=== PATIENT | male | born 1990 | race Caucasian/White ===

== ENCOUNTER 2016-10-08 12:24 | Inpatient (IN) | payer MEDICARE, MEDICAID ==
[~2016-10-08] VITALS: Ht 162.6 cm; Wt 154.5 kg
[2016-10-08] MEDS ORDERED: IPRATROPIUM 0.5MG/ALBUTEROL 2.5MG INH SOL UD 3ML (DUONEB)(J7620) As Ordered ONE (13:45)
--- NOTE | 2016-10-08 14:43 | REP ---
Chest x-ray: Two views. History: Cough . Comparison study: No comparisons . Findings: The lungs are well inflated and free of infiltrate. The pleural angles are sharp. The heart size is normal. Pulmonary vasculature is not increased. No significant bony abnormality is seen. Impression: Negative chest x-ray. Signed by Lebron Wong MD 10/08/2016 02:34 P
[2016-10-08] MEDS ORDERED: ONDANSETRON 4MG/2ML VIAL (J2405) IV PRN (14:45)
[2016-10-08] MEDS ORDERED: BISACODYL 5 MG TAB PO PRN (14:45)
[2016-10-08] MEDS ORDERED: ACETAMINOPHEN 325 MG TAB As Ordered ONE (14:56)
[2016-10-08] MEDS ORDERED: IBUPROFEN 800 MG TAB As Ordered ONE (14:56)
[2016-10-08] MEDS: NS 1,000 ML IV SCH ×2 (15:00→22:31)
[2016-10-08 15:10] LABS: CONTROL LINE MONO INT CTR LINE PRESENT
[2016-10-08 15:13] LABS: ALBUMIN 3.6 GM/DL (3.2-5.2); ALBUMIN/GLOBULIN RATIO 0.86 (1.00-1.93); ALKALINE PHOSPHATASE 95 U/L (45-117); ALT/SGPT 54 U/L (12-78); AMYLASE 30 U/L (25-115); ANION GAP 12 MEQ/L (8-16); AST/SGOT 18 U/L (15-37); BILIRUBIN,TOTAL 0.7 MG/DL (0.2-1.0); BLOOD UREA NITROGEN 11 MG/DL (7-18); CALCIUM LEVEL 8.8 MG/DL (8.5-10.1); CARBON DIOXIDE LEVEL 21 MEQ/L (21-32); CHLORIDE LEVEL 104 MEQ/L (98-107); CREATININE FOR GFR 1.19 MG/DL (0.70-1.30); GLOMERULAR FILTRATION RATE > 60.0 (>60); GLUCOSE, FASTING 117 MG/DL (70-105); POTASSIUM SERUM 3.4 MEQ/L (3.5-5.1); SODIUM LEVEL 137 MEQ/L (136-145); TOTAL PROTEIN 7.8 GM/DL (6.4-8.2)
[2016-10-08 15:15] LABS: BASO % 0.3 % (0.0-1.0); EOS % 0.4 % (0.0-3.0); LARGE UNSTAINED CELL # 0.1 K/mm3 (0.0-0.4); LARGE UNSTAINED CELL % 1.6 % (0.0-4.0); LYMPH # 0.8 K/mm3 (1.5-6.5); LYMPH % 9.8 % (24.0-44.0); MEAN CORPUSCULAR HEMOGLOBIN 30.3 pg (27.0-33.0); MEAN CORPUSCULAR HGB CONC 34.2 g/dl (32.0-36.5); MEAN CORPUSCULAR VOLUME 88.6 fl (80.0-96.0); MONO # 0.5 K/mm3 (0.0-0.8); MONO % 6.3 % (0.0-5.0); NEUTROPHILS # 6.7 K/mm3 (1.8-7.7); NEUTROPHILS % 81.7 % (36.0-66.0); RED CELL DISTRIBUTION WIDTH 12.8 % (11.5-14.5); WHITE BLOOD COUNT 8.2 K/mm3 (4.0-10.0)
[2016-10-08] MEDS ORDERED: ISOVUE-370 76% 100ML VIAL (Q9967) As Ordered ONE (15:20)
--- NOTE | 2016-10-08 15:26 | HPEPDOC ---
Medical History and Physical Date of Admission Oct 08, 2016 at 14:35 History and Physical ATTENDING: Dr. Erica Odonnell PCP: Dr Meehan CC: Fever HPI: 26 yo M with a past medical history significant for seasonal allergy who is accompanied by his mother who reports history of fever for the past 2 days. He also provides a history of some epigastric discomfort for the past couple of days however states it is resolved today. He reports some mild nausea this morning however no vomiting and he states nausea is currently resolved. He had some cough however this was nonproductive. He also reports some mild erythema on his right lower extremity where he ran into something earlier today. Generally he was feeling unwell therefore he came to the emergency department for evaluation. Denies any fevers, chills, weakness, fatigue, NAVARRO, CP, SOB, cough, palpitations, abdominal pain, N/V/D or changes in bowel or bladder habits. Upon presentation to the hospital the patient was found to have fever, thus the hospitalist team was consulted. PMHx: Obesity BMI 56.64 Seasonal allergies PSHX: Tonsillectomy Melanoma posterior neck SOCHX: Resides in: [place] Marital Status: Single Kids: None Tobacco use: Past 5 years, cigarette daily ETOH: Occasionally on holidays Illicit Drugs: Denies Recent travel: Denies Advanced directives: Denies FAMHX: Mother: Alive, fibromyalgia, hypertension Father: , diabetes, CHF. Siblings: Alive, well Children: None Unexpected deaths due to medical reasons: None. ROS: As noted in HPI, otherwise 11pt ROS of systems reviewed and remarkable mother recently ill with URI/allergies. PE: GEN: 26yoM, appears stated age. Well-nourished, well developed. No acute distress. Alert and oriented x 3. Pleasant, interactive. HEENT: Normocephalic, atraumatic. Pupils are equal, round, and reactive to light. Extraocular movements are intact. No nystagmus appreciated. Sclera are nonicteric. Conjunctiva without injection. Nose midline. Nasal turbinates without bogginess. EACs both patent BL. TMs both visualized and alfredo with good cone of light, no bulging or erythema. No facial asymmetry. Moist mucous membranes. Dentition fair. Pharynx pink and moist, no cobblestoning. Neck supple , trachea midline. No lymphadenopathy or thyromegaly appreciated. CHEST: Regular rate and rhythm, +S1, +S2 LUNGS: Clear to auscultation bilaterally. No wheezes, rales, or rhonchi. Breathing appears symmetric and easy. Patient is speaking in full sentences. No accessory muscle use. ABD: Round, soft, non-tender, non-distended. +Bowel sounds throughout. No rebound or guarding. No costovertebral angle tenderness. EXT: Pulses 2+ bilaterally dorsalis pedis and radial. No lower extremity edema appreciated. SKIN: [place], dry, warm. Capillary refill <2sec. Area of mild erythema is noted on the right lower extremity and ankle.. NEURO: Alert and oriented x 3. Cranial nerves III-XII are intact. No focal deficits appreciated. CXR: Negative CT: Abdomen and pelvis. Pending EKG: Not completed BLOOD CULTURES: Pending Urinalysis pending Urine culture pending Labs including BMP/CBC with differential/lactic acid are pending. A&P: 26 yo M with a past medical history significant for seasonal allergy who is accompanied by his mother who reports history of fever for the past 2 days The patient will be admitted to M/S for observation to Dr. Meehan's service. Fever, possible viral illness. IVF at 150cc/hr. Zofran when necessary. Tylenol as needed. Blood culture pending. UA/urine culture pending. CT scan abdomen and pelvis pending. Laboratory studies including BMP, CBC with differential, lactic acid pending. Further interventions pending this initial workup. cipro flagyl due to complaints of abd pain. gi panel to evaluate diarrhea. Poor venous access. PICC line requested. History of seasonal allergy. Morbid obesity, BMI 56.64. Complicates care. DVT prophylaxis. Subcutaneous heparin. The patient is a full code Vital Signs 144/74 131 20 101.3 98% room air Laboratory Data Labs 24H Laboratory Tests 2 10/08/16 13:08: 10/08/16 14:22: Blood Urea Nitrogen 11, Creatinine 1.19, Sodium Level 137, Potassium Level 3.4L , Chloride Level 104, Carbon Dioxide Level 21, Calcium Level 8.8, Aspartate Amino Transf (AST/SGOT) 18, Alanine Aminotransferase (ALT/SGPT) 54, Alkaline Phosphatase 95, Total Bilirubin 0.7, Total Protein 7.8, Albumin 3.6, Albumin/ Globulin Ratio 0.86L, Amylase Level 30, Anion Gap 12, C-Reactive Protein, Quantitative 13.50H, Glomerular Filtration Rate > 60.0, Lipase 72L, Monoscreen NEGATIVE CBC/BMP Laboratory Tests 10/08/16 14:22 Calcium Level 8.8, Aspartate Amino Transf (AST/SGOT) 18, Alanine Aminotransferase (ALT/SGPT) 54, Alkaline Phosphatase 95, Total Bilirubin 0.7, Total Protein 7.8, Albumin 3.6 Microbiology Microbiology 10/08/16 Blood Culture, Received Pending 10/08/16 Blood Culture, Received Pending 10/08/16 Influenza Virus Type A Antigen - Final, Complete 10/08/16 Influenza Virus Type B Antigen - Final, Complete 10/08/16 Urine Culture, Received Pending Home Medications Scheduled Loratadine (Claritin) 10 Mg Tab 10 MG PO Q2D Scheduled PRN (Flonase Allergy Relief) 50 Mcg/Act Spr 1 SPRAY NA BID PRN PRN CONGESTION Acetaminophen (Acetaminophen) 500 Mg Tab 1,000 MG PO PRN PAIN Diphenhydramine HCl (Diphenhydramine HCl) 25 Mg Cap 25 MG PO PRN HIVES Naproxen Sodium (Aleve) 220 Mg Tab 220 MG PO BID PRN PRN PAIN Allergies Coded Allergies: Latex (Verified Allergy, Intermediate, RASH, 12/22/12) Bee Venom (Unverified Allergy, Unknown, 10/08/16) Cinnamon (Unverified Allergy, Unknown, 10/08/16) No Known Drug Allergy (Verified Allergy, Unknown, 12/22/12) Lakia Greco Oct 08, 2016 15:26 DEBBIE TALBERT MD Oct 08, 2016 16:00
[2016-10-08 15:48] LABS: ERYTHROCYTE SEDIMENTATION RATE 46 mm/hr (0-15)
[2016-10-08] MEDS ORDERED: CLAR1TAB2 PO (15:49)
[2016-10-08] MEDS ORDERED: DIPH25CA PO (15:49)
[2016-10-08] MEDS ORDERED: ACET50TAOT PO (15:49)
[2016-10-08] MEDS ORDERED: ALEV220T26 PO (15:49)
[2016-10-08] MEDS ORDERED: FLON1SPR (15:49)
[2016-10-08] MEDS ORDERED: GI COCKTAIL 50ML BTL(HYOSCYAMINE/MAALOX/LIDOCAINE VISCOUS)(1:3:1) PO PRN (16:00)
[2016-10-08 16:12] LABS: PLATELET COUNT, AUTOMATED 76 k/mm3 (150-450)
[2016-10-08] MEDS ORDERED: CIPROFLOXACIN/D5W 400 MG/200 ML BAG (J0744) As Ordered ONE (16:13)
--- NOTE | 2016-10-08 16:31 | REP ---
CT abdomen and pelvis with IV, but without oral contrast: History: Abdominal pain and fever. CT contrast dose: 100 ml of Isovue 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 The lung bases are clear. There is mild diffuse fatty infiltration of the liver. Gallbladder and pancreas are unremarkable. No adrenal lesion is seen. The kidneys enhance symmetrically and are morphologically intact. No splenic abnormality is observed. No retroperitoneal mass or adenopathy is seen. Normal caliber aorta is noted. A normal appendix is seen in the right lower quadrant. There is no obstructive lesion seen. Solitary loop of small bowel is seen in the left mid abdomen with air and some fluid. No evidence of free air or abscess. Impression: Evidence of fatty infiltration of the liver. No acute abdominal abnormality or pelvic abnormality. Normal appendix seen. Signed by Lebron Wong MD 10/08/2016 05:42 P
--- NOTE | 2016-10-08 16:32 | EDDOCDS ---
Physician Documentation [facility] Name: Josiah Orellana Age: 26 yrs Sex: Male : 1990 Arrival Date: 10/08/2016 Time: 12:24 Bed 2 Private MD: Siva Meehan MD Disposition: 10/08/16 15:04 Hospitalization ordered by Shantell Karimi for Inpatient Admission. Preliminary diagnosis is Fever, unspecified. - Bed requested for 4 [place]. - Status is Inpatient Admission. srm - Condition is Stable. - Problem is new. - Symptoms are unchanged. Historical: - Allergies: Latex; - Home Meds: 1. Benadryl 25 mg Oral cap 1 cap 2. Claritin 10 mg Oral tab 1 tab once daily 3. Flonase 50 mcg/actuation Nasal spsn 1 spray 2 times per day 4. Tylenol 1000 mg Oral (Last dose: 10/08/2016 11:00) - PMHx: Seasonal Allergies; - PSHx: Tonsillectomy; Neck Surgery; - Social history: Smoking status: Patient uses tobacco products, current some day smoker. No barriers to communication noted, The patient speaks fluent German, Speaks appropriately for age. - Family history: Not pertinent. - : The pt / caregiver states he / she is not on anticoagulants. Home medication list is obtained from the patient. - Exposure Risk Screening:: None identified. Vital Signs: 10/08 12:26 BP 144 / 74; Pulse 131; Resp 20 S; Temp 101.3(O); Pulse Ox 98% on R/A; Weight 149.69 kg gr2 / 330.01 lbs (R); Height 5 ft. 4 in. (162.56 cm) (R); Pain 3/10; 14:48 BP 138 / 72; Pulse 162; Resp 24; Temp 100.4(O); Pulse Ox 100% on R/A; Pain 7/10; sew 16:05 BP 150 / 67; Pulse 128; Resp 22; Temp 100.6(O); Pulse Ox 95% on R/A; Pain 0/10; srm 12:26 Body Mass Index 56.64 (149.69 kg, 162.56 cm) gr2 MDM: 12:57 -Blood Culture (Adults Only), peripheral from different site, or from device/port/PICC ef1 etc. if present ordered. 12:57 Strep Screen, Nursing ordered. ef1 12:57 Obtain sample by nasopharyngeal swab ordered. ef1 12:57 IV Saline Lock ordered. ef1 12:58 CBC with Diff Ordered. EDMS 12:58 Complete Comphrensive Metabolic Ordered. EDMS 12:58 Lactic Acid (Carbajal tube on ice) Ordered. EDMS 12:58 Monoscreen Ordered. EDMS 12:58 -Blood Culture Ordered. EDMS 12:58 -Influenza A&B Rapid Antigen - Nose Ordered. EDMS 12:58 Chest, 2 View (pa\E\lat) Ordered. EDMS 13:02 -Blood Culture (Adults Only), peripheral from different site, or from device/port/PICC sew etc. if present complete. 13:03 BLOOD CULTURES Ordered. EDMS 13:22 Albuterol-Ipratropium 1 neb Nebulizer every 20 minutes x3 ordered. ef1 13:22 Call Respiratory ordered. ef1 13:34 Call Respiratory complete. sew 13:39 [facility] [place] [place] Payment Agreement was scanned into [employer] and attached to record. jp5 13:39 Financial registration complete. jp5 13:40 AMYLASE Ordered. EDMS 13:40 LIPASE Ordered. EDMS 14:20 -Influenza A&B Rapid Antigen - Nose Reviewed. ef1 14:36 PICC LINE INSERTION W/SITERITE Ordered. EDMS 14:38 URINE CULTURE Ordered. EDMS 14:40 Admission / Observation Status ordered. EDMS 14:40 CT ABD & PELVIS WITH CONTRAST Ordered. EDMS 14:40 REGULAR DIET ordered. EDMS 14:41 URINALYSIS Ordered. EDMS 14:45 Acetaminophen Tablet 975 mg PO once ordered. ef1 14:45 Ibuprofen 800 mg PO once ordered. ef1 14:47 ERYTHROCYTE SEDIMENTATION RATE Ordered. EDMS 14:47 C REACTIVE PROTEIN QUANTITATIV Ordered. EDMS 14:49 Oxygen at 2L/min via NC ordered. ef1 14:56 BED REQUEST+ADM ordered. EDMS 15:59 GASTROINTESTINAL (GI) PANEL Ordered. EDMS 15:59 MRSA SCREEN Ordered. EDMS 16:11 Ciprofloxacin 400 mg IVPB at 200 mL/hr once over 60 mins ordered. srm 16:23 ERYTHROPOIETIN SERUM Ordered. EDMS 16:23 JAK2 MUTATIONS FOR PATH Ordered. EDMS Administered Medications: 14:01 Drug: Albuterol-Ipratropium 1 neb [ipratropium-albuterol 0.5 mg-3 mg(2.5 mg base)/3 mL cs15 nebulization soln (1 neb)] Route: Nebulizer; 14:20 Drug: Albuterol-Ipratropium 1 neb [ipratropium-albuterol 0.5 mg-3 mg(2.5 mg base)/3 mL cs15 nebulization soln (1 neb)] Route: Nebulizer; 14:34 Drug: Albuterol-Ipratropium 1 neb [ipratropium-albuterol 0.5 mg-3 mg(2.5 mg base)/3 mL cs15 nebulization soln (1 neb)] Route: Nebulizer; 14:45 CANCELLED (Other Intervention Used): Ondansetron 4 mg IVP once ef1 14:46 CANCELLED (Other Intervention Used): ketorolac 30 mg IVP once ef1 15:01 Drug: Acetaminophen 975 mg [acetaminophen 325 mg tablet (3 tabs)] Route: PO; dls 15:01 Drug: Ibuprofen 800 mg [ibuprofen 800 mg tablet (1 tabs)] Route: PO; dls 16:10 CANCELLED (Other Intervention Used): NS 0.9% 1000 ml IV at bolus once srm 16:11 CANCELLED (Other Intervention Used): cefTRIAXone 1 grams IVPB once over 30 mins; dilute srm in 50mL of NS or D5W 16:17 Drug: Ciprofloxacin 400 mg [ciprofloxacin 400 mg/200 mL in 5 % dextrose intravenous srm piggyback] Route: IVPB; Rate: 200 mL/hr; Infused Over: 60 mins; Site: right antecubital; 16:19 CANCELLED (Other Intervention Used): NS 0.9% 1000 ml IV at bolus once srm Signatures: Dispatcher [employer] EDMS Ernestina Acosta RN RN srm Feola, Ya, PA-C PA-C ef1 Chrissie Lynch EmilyRN Dori Singer jp5 Alhaji Londono RN RN sa Scott, Debra RN dls Demian Hawley RT [id number] The chart was reviewed and I authenticate all verbal orders and agree with the evaluation and treatment provided.Corrections: (The following items were deleted from the chart) 13:39 13:33 AMYLASE+LAB ordered. EDMS EDMS 13:39 13:33 LIPASE+LAB ordered. EDMS EDMS 14:45 13:30 Ondansetron 4 mg IVP once ordered. ef1 ef1 14:46 12:57 ketorolac 30 mg IVP once ordered. ef1 ef1 14:46 14:41 ERYTHROCYTE SEDIMENTATION RATE ordered. EDMS EDMS 14:46 14:41 C REACTIVE PROTEIN QUANTITATIV ordered. EDMS EDMS 14:47 14:41 LIPASE ordered. EDMS EDMS 14:47 14:41 AMYLASE ordered. EDMS EDMS 15:28 14:38 BLOOD CULTURES ordered. EDMS EDMS 15:59 15:59 GASTROINTESTINAL (GI) PANEL ordered. EDMS EDMS 15:59 15:59 GASTROINTESTINAL (GI) PANEL ordered. EDMS EDMS 16:10 13:30 NS 0.9% 1000 ml IV at bolus once ordered. ef1 srm 16:11 13:30 cefTRIAXone 1 grams IVPB once over 30 mins; dilute in 50mL of NS or D5W ordered. srm ef1 16:19 12:57 NS 0.9% 1000 ml IV at bolus once ordered. ef1 srm Attachments: 13:39 [facility] [place] [place] Payment Agreement jp5 [employer]
--- NOTE | 2016-10-08 16:32 | EDDOCDS ---
Nurse's Notes [facility] Name: Josiah Orellana Age: 26 yrs Sex: Male : 1990 Arrival Date: 10/08/2016 Time: 12:24 Bed 2 Private MD: Siva Meehan MD Diagnosis: Fever, unspecified Presentation: 10/08 12:33 Presenting complaint: Patient states: cough and fever at home for 2 days. also c/o ead right leg pain, pt states "I pulled a muscle.". Adult Sepsis Screening: The patient does not have new or worsening altered mentation. Patient's respiratory rate is less than 22. Systolic blood pressure is greater than 100. Patient has a qSOFA score of 0- Negative Sepsis Screen. Suicide/Homicide risk assessment- the patient denies having any suicidal and/or homicidal ideations and does not present with any other emotional, behavioral or mental health complaints. Status: Patient is not a home service consultant or dependent. Transition of care: patient was not received from another setting of care. 12:33 Acuity: DRE Level 3 ead 12:33 Method Of Arrival: Walkin/Carried/Asstd ead 13:19 Acuity level changed due to meets SIRS criteria or has positive Sepsis Screening. [facility] 13:19 Acuity: DRE Level 2 [facility] Triage Assessment: 12:36 General: Appears in no apparent distress, Behavior is appropriate for age, cooperative. ead Pain: Location: right leg Pain currently is 6 out of 10 on a pain scale. HIV screening NA for this visit Offered previously. EENT: Reports pain in right ear. Respiratory: Airway is patent Respiratory effort is even, unlabored, Reports cough that is. Historical: - Allergies: Latex; - Home Meds: 1. Benadryl 25 mg Oral cap 1 cap 2. Claritin 10 mg Oral tab 1 tab once daily 3. Flonase 50 mcg/actuation Nasal spsn 1 spray 2 times per day 4. Tylenol 1000 mg Oral (Last dose: 10/08/2016 11:00) - PMHx: Seasonal Allergies; - PSHx: Tonsillectomy; Neck Surgery; - Social history: Smoking status: Patient uses tobacco products, current some day smoker. No barriers to communication noted, The patient speaks fluent Palestinian, Speaks appropriately for age. - Family history: Not pertinent. - : The pt / caregiver states he / she is not on anticoagulants. Home medication list is obtained from the patient. - Exposure Risk Screening:: None identified. Screenin:10 Screening information is obtained from the parent. Fall risk: No risks identified. dls Assistance ADL's: requires no assistance with activities of daily living. Abuse/DV Screen: The patient / caregiver reports he/she is: not in a situation that causes fear, pain or injury. Nutritional screening: No deficits noted. Advance Directives: Currently, there is no health care proxy. There is no active DNR order. There is no living will. There is no Power of Child Care Worker. Advance directive information has not previously been placed in an [facility] medical record. home support is adequate. Assessment: 14:38 General: Appears morbidly obese male. no resp distress when at rest. speech jmk uninterrupted by resp effort. occasional cough noted that is non productive. Moist pink oral mucosa. Poor personal hygiene. breath sound diminished and obscured by body habitus., despite multiple IV attempts unable to establish IV access. provider aware. Cardiovascular: Capillary refill < 3 seconds Heart tones S1 S2 present Edema is absent. Respiratory: Airway is patent Respiratory effort is even, unlabored, Breath sounds are clear bilaterally. GI: Abdomen is non- distended obese. 16:12 General: Critical value H&H called to Dr. Karimi.. kcs 16:21 General: Appears. srm 16:27 General: Appears in no apparent distress, comfortable, Behavior is cooperative. Pain: srm Denies pain. Derm: Skin is pink, warm & dry. Vital Signs: 12:26 BP 144 / 74; Pulse 131; Resp 20 S; Temp 101.3(O); Pulse Ox 98% on R/A; Weight 149.69 kg gr2 (R); Height 5 ft. 4 in. (162.56 cm) (R); Pain 3/10; 14:48 BP 138 / 72; Pulse 162; Resp 24; Temp 100.4(O); Pulse Ox 100% on R/A; Pain 7/10; sew 16:05 BP 150 / 67; Pulse 128; Resp 22; Temp 100.6(O); Pulse Ox 95% on R/A; Pain 0/10; srm 12:26 Body Mass Index 56.64 (149.69 kg, 162.56 cm) gr2 Vitals: 12:26 Log In Time: October 08, 2016 at 12:26. gr2 14:38 Strep Screen is obtained and tested: Negative, a GATSNEG culture is ordered in [facility] and sent. ED Course: 12:25 Patient visited by Shavon Duckworth. gr2 12:25 Siva Meehan is Private Physician. gr2 12:25 Patient moved to Waiting gr2 12:27 Patient visited by Shavon Duckworth. gr2 12:27 Patient moved to Pre RCE gr2 12:35 Triage Initiated ead 12:55 Ya Murrell PA-C is PHCP. ef1 12:55 Gayatri Todd MD is Attending Physician. ef1 12:56 Patient moved to I5 / M5 dls 12:57 Patient visited by Ya Murrell PA-C. ef1 13:22 Patient visited by Ya Murrell PA-C. ef1 13:39 [place] was scanned into [email or web address] and attached to record. jp5 13:56 -Influenza A&B Rapid Antigen - Nose Sent. jmk 14:04 Patient visited by Ya Murrell PA-C. ef1 14:20 Patient visited by Ya Murrell PA-C. ef1 14:43 Patient visited by Ya Murrell PA-C. ef1 14:51 Patient visited by Chrissie Lynch. sew 15:04 Shantell Karimi is Hospitalizing Provider. ef1 15:07 URINALYSIS Sent. dls 15:07 URINE CULTURE Sent. dls 15:09 C REACTIVE PROTEIN QUANTITATIV Sent. dls 15:09 ERYTHROCYTE SEDIMENTATION RATE Sent. dls 15:10 The patient / caregiver is instructed regarding the plan of care and ED course. dls Accompanied by Family Member, Patient has correct armband on for positive identification. Placed in gown. 15:12 Patient moved to 2 jmk 15:13 Chest, 2 View (pa\\E\\lat) Returned. EDMS 15:21 Patient visited by Chrissie Lynch. sew 15:21 Repositioned patient. telemetry monitor on. Pulse ox on. NIBP on. sew 16:00 Patient visited by Ernestina Acosta, KALEIGH. srm 16:08 Patient visited by Ernestina Acosta, KALEIGH. srm 16:21 Patient visited by Ernestina Acosta RN. srm 16:27 No apparent distress. Resting quietly. Awaiting bed assignment. srm 16:27 Inserted saline lock: 22 gauge in right forearm. No procedures done that require srm assistance. 16:29 Patient visited by Ernestina Acosta RN. srm Administered Medications: 14:01 Drug: Albuterol-Ipratropium 1 neb [ipratropium-albuterol 0.5 mg-3 mg(2.5 mg base)/3 mL cs15 nebulization soln (1 neb)] Route: Nebulizer; 14:20 Drug: Albuterol-Ipratropium 1 neb [ipratropium-albuterol 0.5 mg-3 mg(2.5 mg base)/3 mL cs15 nebulization soln (1 neb)] Route: Nebulizer; 14:34 Drug: Albuterol-Ipratropium 1 neb [ipratropium-albuterol 0.5 mg-3 mg(2.5 mg base)/3 mL cs15 nebulization soln (1 neb)] Route: Nebulizer; 14:45 CANCELLED (Other Intervention Used): Ondansetron 4 mg IVP once ef1 14:46 CANCELLED (Other Intervention Used): ketorolac 30 mg IVP once ef1 15:01 Drug: Acetaminophen 975 mg [acetaminophen 325 mg tablet (3 tabs)] Route: PO; dls 15:01 Drug: Ibuprofen 800 mg [ibuprofen 800 mg tablet (1 tabs)] Route: PO; dls 16:10 CANCELLED (Other Intervention Used): NS 0.9% 1000 ml IV at bolus once srm 16:11 CANCELLED (Other Intervention Used): cefTRIAXone 1 grams IVPB once over 30 mins; dilute srm in 50mL of NS or D5W 16:17 Drug: Ciprofloxacin 400 mg [ciprofloxacin 400 mg/200 mL in 5 % dextrose intravenous srm piggyback] Route: IVPB; Rate: 200 mL/hr; Infused Over: 60 mins; Site: right antecubital; 16:19 CANCELLED (Other Intervention Used): NS 0.9% 1000 ml IV at bolus once srm RT: 14:01 Initial Med Neb Given as ordered. Respiratory: Respiratory effort is unlabored, cs15 Respiratory pattern is regular Breath sounds are diminished bilaterally. Order Results: Lab Order: CBC with Diff; SPEC'M 10/08/16 14:22 Test: WHITE BLOOD COUNT; Value: 8.2; Range: 4.0-10.0; Units: K/mm3; Status: F Test: RED BLOOD COUNT; Value: 7.21; Range: 4.30-6.10; Abnormal: Above high normal; Units: M/mm3; Status: F Test: HEMOGLOBIN; Value: 21.8; Range: 14.0-18.0; Abnormal: Above upper panic limits; Units: g/dl; Status: F Test: HEMATOCRIT; Value: 63.9; Range: 42.0-52.0; Abnormal: Above high normal; Units: %; Status: F Test: MEAN CORPUSCULAR VOLUME; Value: 88.6; Range: 80.0-96.0; Units: fl; Status: F Test: MEAN CORPUSCULAR HEMOGLOBIN; Value: 30.3; Range: 27.0-33.0; Units: pg; Status: F Test: MEAN CORPUSCULAR HGB CONC; Value: 34.2; Range: 32.0-36.5; Units: g/dl; Status: F Test: RED CELL DISTRIBUTION WIDTH; Value: 12.8; Range: 11.5-14.5; Units: %; Status: F Test: PLATELET COUNT, AUTOMATED; Value: 76; Range: 150-450; Abnormal: Below low normal; Units: k/mm3; Status: F Test: NEUTROPHILS %; Value: 81.7; Range: 36.0-66.0; Abnormal: Above high normal; Units: %; Status: F Test: LYMPH %; Value: 9.8; Range: 24.0-44.0; Abnormal: Below low normal; Units: %; Status: F Test: MONO %; Value: 6.3; Range: 0.0-5.0; Abnormal: Above high normal; Units: %; Status: F Test: EOS %; Value: 0.4; Range: 0.0-3.0; Units: %; Status: F Test: BASO %; Value: 0.3; Range: 0.0-1.0; Units: %; Status: F Test: LARGE UNSTAINED CELL %; Value: 1.6; Range: 0.0-4.0; Units: %; Status: F Test: NEUTROPHILS #; Value: 6.7; Range: 1.8-7.7; Units: K/mm3; Status: F Test: LYMPH #; Value: 0.8; Range: 1.5-6.5; Abnormal: Below low normal; Units: K/mm3; Status: F Test: MONO #; Value: 0.5; Range: 0.0-0.8; Units: K/mm3; Status: F Test: EOS #; Value: 0.0; Range: 0.0-0.50; Units: K/mm3; Status: F Test: BASO #; Value: 0.0; Range: 0.0-0.2; Units: K/mm3; Status: F Test: LARGE UNSTAINED CELL #; Value: 0.1; Range: 0.0-0.4; Units: K/mm3; Status: F Lab Order: Complete Comphrensive Metabolic; SPEC'M 10/08/16 14:22 Test: GLUCOSE, FASTING; Value: 117; Range: 70-105; Abnormal: Above high normal; Units: MG/DL; Status: F Test: BLOOD UREA NITROGEN; Value: 11; Range: 7-18; Units: MG/DL; Status: F Test: CREATININE FOR GFR; Value: 1.19; Range: 0.70-1.30; Units: MG/DL; Status: F Test: SODIUM LEVEL; Range: 136-145; Units: MEQ/L; Status: I Test: POTASSIUM SERUM; Range: 3.5-5.1; Units: MEQ/L; Status: I Test: CHLORIDE LEVEL; Range: 98-107; Units: MEQ/L; Status: I Test: CARBON DIOXIDE LEVEL; Range: 21-32; Units: MEQ/L; Status: I Test: ANION GAP; Range: 8-16; Units: MEQ/L; Status: I Test: CALCIUM LEVEL; Range: 8.5-10.1; Units: MG/DL; Status: I Test: AST/SGOT; Range: 15-37; Units: U/L; Status: I Test: ALT/SGPT; Range: 12-78; Units: U/L; Status: I Test: ALKALINE PHOSPHATASE; Range: 45-117; Units: U/L; Status: I Test: BILIRUBIN,TOTAL; Range: 0.2-1.0; Units: MG/DL; Status: I Test: TOTAL PROTEIN; Range: 6.4-8.2; Units: GM/DL; Status: I Test: ALBUMIN; Range: 3.2-5.2; Units: GM/DL; Status: I Test: ALBUMIN/GLOBULIN RATIO; Range: 1.00-1.93; Status: I Test: GLOMERULAR FILTRATION RATE; Value: > 60.0; Range: >60; Status: F Test: SODIUM LEVEL; Value: 137; Range: 136-145; Units: MEQ/L; Status: F Test: POTASSIUM SERUM; Value: 3.4; Range: 3.5-5.1; Abnormal: Below low normal; Units: MEQ/L; Status: F Test: CHLORIDE LEVEL; Value: 104; Range: 98-107; Units: MEQ/L; Status: F Test: CARBON DIOXIDE LEVEL; Value: 21; Range: 21-32; Units: MEQ/L; Status: F Test: ANION GAP; Value: 12; Range: 8-16; Units: MEQ/L; Status: F Test: CALCIUM LEVEL; Value: 8.8; Range: 8.5-10.1; Units: MG/DL; Status: F Test: AST/SGOT; Value: 18; Range: 15-37; Units: U/L; Status: F Test: ALT/SGPT; Value: 54; Range: 12-78; Units: U/L; Status: F Test: ALKALINE PHOSPHATASE; Value: 95; Range: 45-117; Units: U/L; Status: F Test: BILIRUBIN,TOTAL; Value: 0.7; Range: 0.2-1.0; Units: MG/DL; Status: F Test: TOTAL PROTEIN; Value: 7.8; Range: 6.4-8.2; Units: GM/DL; Status: F Test: ALBUMIN; Value: 3.6; Range: 3.2-5.2; Units: GM/DL; Status: F Test: ALBUMIN/GLOBULIN RATIO; Value: 0.86; Range: 1.00-1.93; Abnormal: Below low normal; Status: F Test Note: ; Units are mL/min/1.73 m2 Chronic Kidney Disease Staging per NKF: Stage I & II GFR >=60 Normal to Mildly Decreased Stage III GFR 30-59 Moderately Decreased Stage IV GFR 15-29 Severely Decreased Stage V GFR <15 Very Little GFR Left ESRD GFR <15 on UNDRAPED ARTIST MODEL Lab Order: Lactic Acid (Carbajal tube on ice); [facility] 10/08/16 14:22 Test: LACTIC ACID LEVEL, LACTATE; Value: 3.1; Range: 0.4-2.0; Abnormal: Above upper panic limits; Units: MMOL/L; Status: F Lab Order: Monoscreen; [facility] 10/08/16 14:22 Test: MONO SCRN; Value: NEGATIVE; Range: NEGATIVE; Status: F Lab Order: -Influenza A&B Rapid Antigen - Nose; SPEC'M 10/08/16 13:07 Test: INFLUENZA A RAPID SCR by ICA; Value: INFLUENZA A RESULTS NEGATIVE; Status: F Test: INFLUENZA A RAPID SCR by ICA; Value: Comments:; Status: F Test: INFLUENZA B RAPID SCR by ICA; Value: INFLUENZA B RESULTS NEGATIVE; Status: F Test Note: ; The Influenza test is a direct rapid immunoassay for the qualitative detection of Influenza viral antigen. Cell culture (Viral Culture) testing should be considered to confirm NEGATIVE results and to assist in detecting other viruses that can provide similar clinical symptoms. Please contact the lab within 24 hours ([phone]) if confirmatory testing is desired. Lab Order: AMYLASE; [facility] 10/08/16 14:22 Test: AMYLASE; Value: 30; Range: 25-115; Units: U/L; Status: F Lab Order: LIPASE; [facility] 10/08/16 14:22 Test: LIPASE; Value: 72; Range: 73-393; Abnormal: Below low normal; Units: U/L; Status: F Lab Order: URINALYSIS; [facility] 10/08/16 13:08 Test: APPEARANCE, URINE; Value: CLEAR; Range: CLEAR; Status: F Test: COLOR, URINE; Value: YELLOW; Range: YELLOW; Status: F Test: PH,URINE; Value: 7.0; Range: 5.0-9.0; Units: UNITS; Status: F Test: SPECIFIC GRAVITY URINE AUTO; Value: 1.030; Range: 1.002-1.035; Status: F Test: PROTEIN, URINE AUTO; Value: 1+; Range: NEGATIVE; Abnormal: Above high normal; Units: mg/dL; Status: F Test: GLUCOSE, URINE (UA) AUTO; Value: NEGATIVE; Range: NEGATIVE; Units: mg/dL; Status: F Test: KETONE, URINE AUTO; Value: TRACE; Range: NEGATIVE; Abnormal: Above high normal; Units: mg/dL; Status: F Test: UROBILINOGEN, URINE AUTO; Value: 0.2; Range: 0.0-2.0; Units: mg/dL; Status: F Test: BILIRUBIN, URINE AUTO; Value: NEGATIVE; Range: NEGATIVE; Status: F Test: NITRITE, URINE AUTO; Value: NEGATIVE; Range: NEGATIVE; Status: F Test: LEUKOCYTE ESTERASE, URINE AUTO; Value: NEGATIVE; Range: NEGATIVE; Status: F Test: BLOOD, URINE BLOOD; Value: NEGATIVE; Range: NEGATIVE; Status: F Test: WBC, URINE AUTO; Value: 2; Range: 0-3; Units: /HPF; Status: F Test: RBC, URINE AUTO; Value: 2; Range: 0-3; Units: /HPF; Status: F Test: BACTERIA, URINE AUTO; Value: NEGATIVE; Range: NEGATIVE; Status: F Test: SQUAMOUS EPITHELIAL CELL UR AU; Value: 1; Range: 0-6; Units: /HPF; Status: F Test: MUCUS, URINE; Value: SMALL; Range: NEGATIVE; Status: F Test: HYALINE CAST, URINE AUTO; Value: 0; Range: 0-1; Units: /LPF; Status: F Lab Order: ERYTHROCYTE SEDIMENTATION RATE; SPEC'M 10/08/16 14:22 Test: ERYTHROCYTE SEDIMENTATION RATE; Value: 46; Range: 0-15; Abnormal: Above high normal; Units: mm/hr; Status: F Lab Order: C REACTIVE PROTEIN QUANTITATIV; SPEC'M 10/08/16 14:22 Test: C REACTIVE PROTEIN QUANTITATIV; Value: 13.50; Range: 0.00-0.30; Abnormal: Above high normal; Units: MG/DL; Status: F Radiology Order: Chest, 2 View (pa\\E\\lat) Test: Chest, 2 View (pa\\E\\lat) REASON FOR EXAMINATION: Cough; Chest x-ray: Two views.; ; History: Cough .; ; Comparison study: No comparisons .; ; Findings: The lungs are well inflated and free of infiltrate. The pleural; angles are sharp. The heart size is normal. Pulmonary vasculature is not; increased. No significant bony abnormality is seen.; ; Impression:; ; Negative chest x-ray.; ; ; Signed by; Lebron Wong MD 10/08/2016 02:34 P; Outcome: 15:04 Decision to Hospitalize by Provider. ef1 16:27 Discharge Assessment: patient administered narcotics - no. The following High Risk [facility] Discharge criteria are identified: None. Admitted to Med/Surg accompanied by tech, via stretcher. Condition: stable. No special radiology studies were completed. Admission hand-off: Report Faxed Fax receipt verified by Rula. Property :Personal belongings accompany Pt. 16:30 Patient left the ED. [facility] Signatures: Dispatcher [facility] EDMS Olive Davis RN Anoop Crowley RN RN jmk Michelson, Staci RN Iris Conner RN RN Ya Ackerman, PA-C PA-C ef1 Chrissie Lynch Gainslee gr2 Juany Strickland RN RN ead Price, Jennalee jp5 Demian Hawley,RT RT cs15 [place]
--- NOTE | 2016-10-08 17:51 | REP ---
Portable chest x-ray: Single view. History: Post central line placement. Findings: A left subclavian line has been inserted. Its course is consistent with a termination in the right subclavian vein having crossed the brachiocephalic vein. There is no evidence of pneumothorax. The lungs are well inflated and clear. Heart is not enlarged. Impression: The left subclavian line tip is in the right subclavian vein region. No pneumothorax seen. Signed by Lebron Wong MD 10/08/2016 07:47 P
--- NOTE | 2016-10-08 19:33 | RO ---
DATE OF PROCEDURE: 10/08/2016 PREPROCEDURE DIAGNOSIS: Sepsis, need for vascular access. POSTPROCEDURE DIAGNOSIS: Sepsis, need for vascular access. PROCEDURE: Insertion of left subclavian central line. SURGEON: Andrew Carr MD [employer]: ANESTHESIA: DESCRIPTION OF PROCEDURE: The patient's left infraclavicular fossa was prepped and draped in the usual sterile fashion. The fossa was infiltrated with 1% Xylocaine. The subclavian vein was found on the first pass. It should be noted that he is morbidly obese. Wire was placed and the tract was dilated. Triple-lumen catheter was placed by Seldinger technique and the ports aspirated and flushed easily. Catheter was secured to chest wall with a two #3-0 silk sutures. The patient tolerated the procedure well and a chest x-ray is pending.
--- NOTE | 2016-10-08 20:19 | EDDOCDS ---
Physician Documentation [facility] Name: Josiah Orellana Age: 26 yrs Sex: Male : 1990 Arrival Date: 10/08/2016 Time: 12:24 Bed 2 Private MD: Siva Meehan MD Disposition: 10/08/16 15:04 Hospitalization ordered by Shantell Karimi for Inpatient Admission. Preliminary diagnosis is Fever, unspecified. - Bed requested for PCU. - Status is Inpatient Admission. ko2 - Condition is Stable. - Problem is new. - Symptoms are unchanged. Historical: - Allergies: Latex; - Home Meds: 1. Benadryl 25 mg Oral cap 1 cap 2. Claritin 10 mg Oral tab 1 tab once daily 3. Flonase 50 mcg/actuation Nasal spsn 1 spray 2 times per day 4. Tylenol 1000 mg Oral (Last dose: 10/08/2016 11:00) - PMHx: Seasonal Allergies; - PSHx: Tonsillectomy; Neck Surgery; - Social history: Smoking status: Patient uses tobacco products, current some day smoker. No barriers to communication noted, The patient speaks fluent Estonian, Speaks appropriately for age. - Family history: Not pertinent. - : The pt / caregiver states he / she is not on anticoagulants. Home medication list is obtained from the patient. - Exposure Risk Screening:: None identified. Vital Signs: 10/08 12:26 BP 144 / 74; Pulse 131; Resp 20 S; Temp 101.3(O); Pulse Ox 98% on R/A; Weight 149.69 kg gr2 / 330.01 lbs (R); Height 5 ft. 4 in. (162.56 cm) (R); Pain 3/10; 14:48 BP 138 / 72; Pulse 162; Resp 24; Temp 100.4(O); Pulse Ox 100% on R/A; Pain 7/10; sew 15:18 BP 133 / 76 (auto/); bcj 15:18 Pulse 155 MON; Pulse Ox 98% ; bcj 16:03 BP 160 / 67 (auto/); bcj 16:05 BP 150 / 67; Pulse 128; Resp 22; Temp 100.6(O); Pulse Ox 95% on R/A; Pain 0/10; srm 16:05 Pulse Ox 97% ; bcj 18:00 BP 128 / 67 (auto/); bcj 18:00 Pulse 120 MON; Pulse Ox 98% ; bcj 18:15 BP 128 / 72 (auto/); ko2 18:15 Pulse 118 MON; Pulse Ox 98% ; ko2 18:30 BP 128 / 62 (auto/); ko2 18:30 Pulse 121 MON; Pulse Ox 97% ; ko2 18:45 BP 121 / 67 (auto/); ko2 18:45 Pulse 122 MON; Pulse Ox 97% ; ko2 19:00 BP 117 / 59 (auto/); ko2 19:00 Pulse 119 MON; Pulse Ox 97% ; ko2 19:15 BP 123 / 66 (auto/); ko2 19:15 Pulse 119 MON; Pulse Ox 98% ; ko2 19:30 BP 112 / 65 (auto/); ko2 19:30 Pulse 124 MON; Pulse Ox 98% ; ko2 19:45 BP 109 / 70 (auto/); ko2 19:45 Pulse 119 MON; Pulse Ox 98% ; ko2 20:00 BP 110 / 68 (auto/); ko2 20:00 Pulse 118 MON; Pulse Ox 98% ; ko2 12:26 Body Mass Index 56.64 (149.69 kg, 162.56 cm) gr2 MDM: 12:57 -Blood Culture (Adults Only), peripheral from different site, or from device/port/PICC ef1 etc. if present ordered. 12:57 Strep Screen, Nursing ordered. ef1 12:57 Obtain sample by nasopharyngeal swab ordered. ef1 12:57 IV Saline Lock ordered. ef1 12:58 CBC with Diff Ordered. EDMS 12:58 Complete Comphrensive Metabolic Ordered. EDMS 12:58 Lactic Acid (Carbajal tube on ice) Ordered. EDMS 12:58 Monoscreen Ordered. EDMS 12:58 -Blood Culture Ordered. EDMS 12:58 -Influenza A&B Rapid Antigen - Nose Ordered. EDMS 12:58 Chest, 2 View (pa\E\lat) Ordered. EDMS 13:02 -Blood Culture (Adults Only), peripheral from different site, or from device/port/PICC sew etc. if present complete. 13:03 BLOOD CULTURES Ordered. EDMS 13:22 Albuterol-Ipratropium 1 neb Nebulizer every 20 minutes x3 ordered. ef1 13:22 Call Respiratory ordered. ef1 13:34 Call Respiratory complete. sew 13:39 [facility] [place] Agreement was scanned into [employer] and attached to record. jp5 13:39 Financial registration complete. jp5 13:40 AMYLASE Ordered. EDMS 13:40 LIPASE Ordered. EDMS 14:20 -Influenza A&B Rapid Antigen - Nose Reviewed. ef1 14:36 PICC LINE INSERTION W/SITERITE Ordered. EDMS 14:38 URINE CULTURE Ordered. EDMS 14:40 Admission / Observation Status ordered. EDMS 14:40 CT ABD & PELVIS WITH CONTRAST Ordered. EDMS 14:40 REGULAR DIET ordered. EDMS 14:41 URINALYSIS Ordered. EDMS 14:45 Acetaminophen Tablet 975 mg PO once ordered. ef1 14:45 Ibuprofen 800 mg PO once ordered. ef1 14:47 ERYTHROCYTE SEDIMENTATION RATE Ordered. EDMS 14:47 C REACTIVE PROTEIN QUANTITATIV Ordered. EDMS 14:49 Oxygen at 2L/min via NC ordered. ef1 14:56 BED REQUEST+ADM ordered. EDMS 15:59 GASTROINTESTINAL (GI) PANEL Ordered. EDMS 15:59 MRSA SCREEN Ordered. EDMS 16:11 Ciprofloxacin 400 mg IVPB at 200 mL/hr once over 60 mins ordered. srm 16:23 ERYTHROPOIETIN SERUM Ordered. EDMS 16:23 JAK2 MUTATIONS FOR PATH Ordered. EDMS 17:01 CBC with Diff Reviewed. ef1 17:01 Complete Comphrensive Metabolic Reviewed. ef1 17:01 Lactic Acid (Carbajal tube on ice) Reviewed. ef1 17:01 LIPASE Reviewed. ef1 17:01 URINALYSIS Reviewed. ef1 17:01 ERYTHROCYTE SEDIMENTATION RATE Reviewed. ef1 17:01 C REACTIVE PROTEIN QUANTITATIV Reviewed. ef1 17:01 Monoscreen Reviewed. ef1 17:01 AMYLASE Reviewed. ef1 17:01 Chest, 2 View (pa\E\lat) Reviewed. ef1 17:01 CT ABD & PELVIS WITH CONTRAST Reviewed. ef1 17:14 Chest, 1 view Ordered. EDMS 18:09 NS 0.9% 1000 ml IV at bolus once ordered. kcs 18:09 NS 0.9% 1000 ml IV at bolus once ordered. kcs 18:14 Written Provider Order was scanned into [employer] and attached to record. deg 19:31 LACTIC ACID LEVEL, LACTATE Ordered. EDMS 19:31 LACTIC ACID LEVEL, LACTATE Ordered. EDMS 19:32 BASIC METABOLIC PROFILE Ordered. EDMS 19:32 CBC WITH DIFFERENTIAL Ordered. EDMS Administered Medications: 14:01 Drug: Albuterol-Ipratropium 1 neb [ipratropium-albuterol 0.5 mg-3 mg(2.5 mg base)/3 mL cs15 nebulization soln (1 neb)] Route: Nebulizer; 14:20 Drug: Albuterol-Ipratropium 1 neb [ipratropium-albuterol 0.5 mg-3 mg(2.5 mg base)/3 mL cs15 nebulization soln (1 neb)] Route: Nebulizer; 14:34 Drug: Albuterol-Ipratropium 1 neb [ipratropium-albuterol 0.5 mg-3 mg(2.5 mg base)/3 mL cs15 nebulization soln (1 neb)] Route: Nebulizer; 14:45 CANCELLED (Other Intervention Used): Ondansetron 4 mg IVP once ef1 14:46 CANCELLED (Other Intervention Used): ketorolac 30 mg IVP once ef1 15:01 Drug: Acetaminophen 975 mg [acetaminophen 325 mg tablet (3 tabs)] Route: PO; dls 15:01 Drug: Ibuprofen 800 mg [ibuprofen 800 mg tablet (1 tabs)] Route: PO; dls 16:10 CANCELLED (Other Intervention Used): NS 0.9% 1000 ml IV at bolus once srm 16:11 CANCELLED (Other Intervention Used): cefTRIAXone 1 grams IVPB once over 30 mins; dilute srm in 50mL of NS or D5W 16:17 Drug: Ciprofloxacin 400 mg [ciprofloxacin 400 mg/200 mL in 5 % dextrose intravenous srm piggyback] Route: IVPB; Rate: 200 mL/hr; Infused Over: 60 mins; Site: right antecubital; 16:19 CANCELLED (Other Intervention Used): NS 0.9% 1000 ml IV at bolus once srm 18:11 Drug: NS 0.9% 1000 ml [sodium chloride 0.9 % intravenous solution] Route: IV; Rate: bcj bolus; Site: Implantable Access Device; 18:11 Drug: NS 0.9% 1000 ml [sodium chloride 0.9 % intravenous solution] Route: IV; Rate: bcj bolus; Site: Implantable Access Device; Signatures: Dispatcher [facility] Olive Hough RN RN kcs Aaliyah Richardson, [employer] deg Ernestina Acosta RN RN srm Ya Murrell, PA-C PA-C ef1 Chrissie Lynch Emily, RN RN ead Ogden, Kari, RN RN ko2 Dori Jessica jp5 Alhaji Londono RN RN sa Johnson, Bruce RN bcj Scott, Debra RN dls Shelton, Caleb RT [id number] The chart was reviewed and I authenticate all verbal orders and agree with the evaluation and treatment provided.Corrections: (The following items were deleted from the chart) 13:39 13:33 AMYLASE+LAB ordered. EDMS EDMS 13:39 13:33 LIPASE+LAB ordered. EDMS EDMS 14:45 13:30 Ondansetron 4 mg IVP once ordered. ef1 ef1 14:46 12:57 ketorolac 30 mg IVP once ordered. ef1 ef1 14:46 14:41 ERYTHROCYTE SEDIMENTATION RATE ordered. EDMS EDMS 14:46 14:41 C REACTIVE PROTEIN QUANTITATIV ordered. EDMS EDMS 14:47 14:41 LIPASE ordered. EDMS EDMS 14:47 14:41 AMYLASE ordered. EDMS EDMS 15:28 14:38 BLOOD CULTURES ordered. EDMS EDMS 15:59 15:59 GASTROINTESTINAL (GI) PANEL ordered. EDMS EDMS 15:59 15:59 GASTROINTESTINAL (GI) PANEL ordered. EDMS EDMS 16:10 13:30 NS 0.9% 1000 ml IV at bolus once ordered. ef1 srm 16:11 13:30 cefTRIAXone 1 grams IVPB once over 30 mins; dilute in 50mL of NS or D5W ordered. srm ef1 16:19 12:57 NS 0.9% 1000 ml IV at bolus once ordered. ef1 srm Attachments: 13:39 [facility] [place] Payment Agreement jp5 18:14 Written Provider Order deg MTDD
--- NOTE | 2016-10-08 20:19 | EDDOCDS ---
Nurse's Notes [facility] Name: Josiah Orellana Age: 26 yrs Sex: Male : 1990 Arrival Date: 10/08/2016 Time: 12:24 Bed 2 Private MD: Siva Meehan MD Diagnosis: Fever, unspecified Presentation: 10/08 12:33 Presenting complaint: Patient states: cough and fever at home for 2 days. also c/o ead right leg pain, pt states "I pulled a muscle.". Adult Sepsis Screening: The patient does not have new or worsening altered mentation. Patient's respiratory rate is less than 22. Systolic blood pressure is greater than 100. Patient has a qSOFA score of 0- Negative Sepsis Screen. Suicide/Homicide risk assessment- the patient denies having any suicidal and/or homicidal ideations and does not present with any other emotional, behavioral or mental health complaints. Status: Patient is not a guest services lead or dependent. Transition of care: patient was not received from another setting of care. 12:33 Acuity: DRE Level 3 ead 12:33 Method Of Arrival: Walkin/Carried/Asstd ead 13:19 Acuity level changed due to meets SIRS criteria or has positive Sepsis Screening. [facility] 13:19 Acuity: DRE Level 2 [facility] Triage Assessment: 12:36 General: Appears in no apparent distress, Behavior is appropriate for age, cooperative. ead Pain: Location: right leg Pain currently is 6 out of 10 on a pain scale. HIV screening NA for this visit Offered previously. EENT: Reports pain in right ear. Respiratory: Airway is patent Respiratory effort is even, unlabored, Reports cough that is. Historical: - Allergies: Latex; - Home Meds: 1. Benadryl 25 mg Oral cap 1 cap 2. Claritin 10 mg Oral tab 1 tab once daily 3. Flonase 50 mcg/actuation Nasal spsn 1 spray 2 times per day 4. Tylenol 1000 mg Oral (Last dose: 10/08/2016 11:00) - PMHx: Seasonal Allergies; - PSHx: Tonsillectomy; Neck Surgery; - Social history: Smoking status: Patient uses tobacco products, current some day smoker. No barriers to communication noted, The patient speaks fluent Mauritian, Speaks appropriately for age. - Family history: Not pertinent. - : The pt / caregiver states he / she is not on anticoagulants. Home medication list is obtained from the patient. - Exposure Risk Screening:: None identified. Screenin:10 Screening information is obtained from the parent. Fall risk: No risks identified. dls Assistance ADL's: requires no assistance with activities of daily living. Abuse/DV Screen: The patient / caregiver reports he/she is: not in a situation that causes fear, pain or injury. Nutritional screening: No deficits noted. Advance Directives: Currently, there is no health care proxy. There is no active DNR order. There is no living will. There is no Power of Manager Data. Advance directive information has not previously been placed in an [facility] medical record. home support is adequate. Assessment: 14:38 General: Appears morbidly obese male. no resp distress when at rest. speech jmk uninterrupted by resp effort. occasional cough noted that is non productive. Moist pink oral mucosa. Poor personal hygiene. breath sound diminished and obscured by body habitus., despite multiple IV attempts unable to establish IV access. provider aware. Cardiovascular: Capillary refill < 3 seconds Heart tones S1 S2 present Edema is absent. Respiratory: Airway is patent Respiratory effort is even, unlabored, Breath sounds are clear bilaterally. GI: Abdomen is non- distended obese. 16:12 General: Critical value H&H called to Dr. Karimi.. kcs 16:21 General: Appears. srm 16:27 General: Appears in no apparent distress, comfortable, Behavior is cooperative. Pain: srm Denies pain. Derm: Skin is pink, warm & dry. 18:05 General: Appears in no apparent distress, comfortable, Behavior is cooperative. Pain: bcj Denies pain. Cardiovascular: Rhythm is sinus tachycardia. Derm: Skin is pink, warm & dry. 19:18 General: Appears in no apparent distress, comfortable, Behavior is cooperative. Pain: ko2 Denies pain. Neurological: Level of Consciousness is awake, alert. Respiratory: Airway is patent Respiratory effort is even, unlabored, Breath sounds are clear bilaterally. GI: Abdomen is obese. Derm: Skin is pink, warm & dry. 20:08 General: Appears in no apparent distress, comfortable, Behavior is cooperative. ko2 Neurological: Level of Consciousness is awake, alert. Respiratory: Airway is patent Respiratory effort is even, unlabored. Derm: Skin is pink, warm & dry. Vital Signs: 12:26 BP 144 / 74; Pulse 131; Resp 20 S; Temp 101.3(O); Pulse Ox 98% on R/A; Weight 149.69 kg gr2 (R); Height 5 ft. 4 in. (162.56 cm) (R); Pain 3/10; 14:48 BP 138 / 72; Pulse 162; Resp 24; Temp 100.4(O); Pulse Ox 100% on R/A; Pain 7/10; sew 15:18 BP 133 / 76 (auto/); bcj 15:18 Pulse 155 MON; Pulse Ox 98% ; bcj 16:03 BP 160 / 67 (auto/); bcj 16:05 BP 150 / 67; Pulse 128; Resp 22; Temp 100.6(O); Pulse Ox 95% on R/A; Pain 0/10; srm 16:05 Pulse Ox 97% ; bcj 18:00 BP 128 / 67 (auto/); bcj 18:00 Pulse 120 MON; Pulse Ox 98% ; bcj 18:15 BP 128 / 72 (auto/); ko2 18:15 Pulse 118 MON; Pulse Ox 98% ; ko2 18:30 BP 128 / 62 (auto/); ko2 18:30 Pulse 121 MON; Pulse Ox 97% ; ko2 18:45 BP 121 / 67 (auto/); ko2 18:45 Pulse 122 MON; Pulse Ox 97% ; ko2 19:00 BP 117 / 59 (auto/); ko2 19:00 Pulse 119 MON; Pulse Ox 97% ; ko2 19:15 BP 123 / 66 (auto/); ko2 19:15 Pulse 119 MON; Pulse Ox 98% ; ko2 19:30 BP 112 / 65 (auto/); ko2 19:30 Pulse 124 MON; Pulse Ox 98% ; ko2 19:45 BP 109 / 70 (auto/); ko2 19:45 Pulse 119 MON; Pulse Ox 98% ; ko2 20:00 BP 110 / 68 (auto/); ko2 20:00 Pulse 118 MON; Pulse Ox 98% ; ko2 12:26 Body Mass Index 56.64 (149.69 kg, 162.56 cm) gr2 Vitals: 12:26 Log In Time: October 08, 2016 at 12:26. gr2 14:38 Strep Screen is obtained and tested: Negative, a GATSNEG culture is ordered in [facility] and sent. ED Course: 12:25 Patient visited by Shavon Duckworth. gr2 12:25 Siva Meehan is Private Physician. gr2 12:25 Patient moved to Waiting gr2 12:27 Patient visited by Shavon Duckworth. gr2 12:27 Patient moved to Pre RCE gr2 12:35 Triage Initiated ead 12:55 Ya Murrell PA-C is PHCP. ef1 12:55 Gayatri Todd MD is Attending Physician. ef1 12:56 Patient moved to I5 / M5 dls 12:57 Patient visited by Ya Murrell PA-C. ef1 13:22 Patient visited by Ya Murrell PA-C. ef1 13:39 [facility] Payment Agreement was scanned into [employer] and attached to record. jp5 13:56 -Influenza A&B Rapid Antigen - Nose Sent. jmk 14:04 Patient visited by Ya Murrell PA-C. ef1 14:20 Patient visited by Ya Murrell PA-C. ef1 14:43 Patient visited by Ya Murrell PA-C. ef1 14:51 Patient visited by Chrissie Lynch. sew 15:04 Shantell Karimi is Hospitalizing Provider. ef1 15:07 URINALYSIS Sent. dls 15:07 URINE CULTURE Sent. dls 15:09 C REACTIVE PROTEIN QUANTITATIV Sent. dls 15:09 ERYTHROCYTE SEDIMENTATION RATE Sent. dls 15:10 The patient / caregiver is instructed regarding the plan of care and ED course. dls Accompanied by Family Member, Patient has correct armband on for positive identification. Placed in gown. 15:12 Patient moved to 2 k 15:13 Chest, 2 View (pa\\E\\lat) Returned. EDMS 15:18 No apparent distress. Resting quietly. Awaiting bed assignment. bcj 15:18 IV is intact. bcj 15:21 Patient visited by Chrissie Lynch. sew 15:21 Repositioned patient. equipment monitor phototypesetting on. Pulse ox on. NIBP on. sew 16:00 Patient visited by Ernestina Acosta, [place]. srm 16:08 Patient visited by Ernestina Acosta, K[place]IGH. srm 16:21 Patient visited by Ernestina Acosta RN. srm 16:27 No apparent distress. Resting quietly. Awaiting bed assignment. srm 16:27 Inserted saline lock: 22 gauge in right forearm. No procedures done that require srm assistance. 16:29 Patient visited by Ernestina Acosta RN. srm 16:40 CT ABD & PELVIS WITH CONTRAST Returned. EDMS 17:30 Assist provider with central line placement of triple lumen in left subclavian. Set up [facility] central line tray. Line placed by Andrew Carr MD Placement verified by CXR, blood return, Dressed with Tegaderm, Patient tolerated well. 17:31 Patient visited by Gurinder Carr RN. bc 17:33 Patient visited by Gurinder Carr RN. bcj 18:10 CT ABD & PELVIS WITH CONTRAST Returned. EDMS 18:11 Patient visited by Gurinder Carr RN. [facility] 18:11 Chest, 1 view Returned. EDMS 18:14 Written Provider Order was scanned into [employer] and attached to record. deg 18:56 Teri Laureano RN is Primary Nurse. ko2 19:13 Patient visited by Gautam Jo, STITCHER TAPE CONTROLLED MACHINE. kb5 20:11 Patient visited by Gautam Jo, STITCHER TAPE CONTROLLED MACHINE. kb5 Administered Medications: 14:01 Drug: Albuterol-Ipratropium 1 neb [ipratropium-albuterol 0.5 mg-3 mg(2.5 mg base)/3 mL cs15 nebulization soln (1 neb)] Route: Nebulizer; 14:20 Drug: Albuterol-Ipratropium 1 neb [ipratropium-albuterol 0.5 mg-3 mg(2.5 mg base)/3 mL cs15 nebulization soln (1 neb)] Route: Nebulizer; 14:34 Drug: Albuterol-Ipratropium 1 neb [ipratropium-albuterol 0.5 mg-3 mg(2.5 mg base)/3 mL cs15 nebulization soln (1 neb)] Route: Nebulizer; 14:45 CANCELLED (Other Intervention Used): Ondansetron 4 mg IVP once ef1 14:46 CANCELLED (Other Intervention Used): ketorolac 30 mg IVP once ef1 15:01 Drug: Acetaminophen 975 mg [acetaminophen 325 mg tablet (3 tabs)] Route: PO; dls 15:01 Drug: Ibuprofen 800 mg [ibuprofen 800 mg tablet (1 tabs)] Route: PO; dls 16:10 CANCELLED (Other Intervention Used): NS 0.9% 1000 ml IV at bolus once srm 16:11 CANCELLED (Other Intervention Used): cefTRIAXone 1 grams IVPB once over 30 mins; dilute srm in 50mL of NS or D5W 16:17 Drug: Ciprofloxacin 400 mg [ciprofloxacin 400 mg/200 mL in 5 % dextrose intravenous srm piggyback] Route: IVPB; Rate: 200 mL/hr; Infused Over: 60 mins; Site: right antecubital; 16:19 CANCELLED (Other Intervention Used): NS 0.9% 1000 ml IV at bolus once srm 18:11 Drug: NS 0.9% 1000 ml [sodium chloride 0.9 % intravenous solution] Route: IV; Rate: bcj bolus; Site: Implantable Access Device; 18:11 Drug: NS 0.9% 1000 ml [sodium chloride 0.9 % intravenous solution] Route: IV; Rate: bcj bolus; Site: Implantable Access Device; RT: 14:01 Initial Med Neb Given as ordered. Respiratory: Respiratory effort is unlabored, cs15 Respiratory pattern is regular Breath sounds are diminished bilaterally. Order Results: Lab Order: CBC with Diff; SPEC'M 10/08/16 14:22 Test: WHITE BLOOD COUNT; Value: 8.2; Range: 4.0-10.0; Units: K/mm3; Status: F Test: RED BLOOD COUNT; Value: 7.21; Range: 4.30-6.10; Abnormal: Above high normal; Units: M/mm3; Status: F Test: HEMOGLOBIN; Value: 21.8; Range: 14.0-18.0; Abnormal: Above upper panic limits; Units: g/dl; Status: F Test: HEMATOCRIT; Value: 63.9; Range: 42.0-52.0; Abnormal: Above high normal; Units: %; Status: F Test: MEAN CORPUSCULAR VOLUME; Value: 88.6; Range: 80.0-96.0; Units: fl; Status: F Test: MEAN CORPUSCULAR HEMOGLOBIN; Value: 30.3; Range: 27.0-33.0; Units: pg; Status: F Test: MEAN CORPUSCULAR HGB CONC; Value: 34.2; Range: 32.0-36.5; Units: g/dl; Status: F Test: RED CELL DISTRIBUTION WIDTH; Value: 12.8; Range: 11.5-14.5; Units: %; Status: F Test: PLATELET COUNT, AUTOMATED; Value: 76; Range: 150-450; Abnormal: Below low normal; Units: k/mm3; Status: F Test: NEUTROPHILS %; Value: 81.7; Range: 36.0-66.0; Abnormal: Above high normal; Units: %; Status: F Test: LYMPH %; Value: 9.8; Range: 24.0-44.0; Abnormal: Below low normal; Units: %; Status: F Test: MONO %; Value: 6.3; Range: 0.0-5.0; Abnormal: Above high normal; Units: %; Status: F Test: EOS %; Value: 0.4; Range: 0.0-3.0; Units: %; Status: F Test: BASO %; Value: 0.3; Range: 0.0-1.0; Units: %; Status: F Test: LARGE UNSTAINED CELL %; Value: 1.6; Range: 0.0-4.0; Units: %; Status: F Test: NEUTROPHILS #; Value: 6.7; Range: 1.8-7.7; Units: K/mm3; Status: F Test: LYMPH #; Value: 0.8; Range: 1.5-6.5; Abnormal: Below low normal; Units: K/mm3; Status: F Test: MONO #; Value: 0.5; Range: 0.0-0.8; Units: K/mm3; Status: F Test: EOS #; Value: 0.0; Range: 0.0-0.50; Units: K/mm3; Status: F Test: BASO #; Value: 0.0; Range: 0.0-0.2; Units: K/mm3; Status: F Test: LARGE UNSTAINED CELL #; Value: 0.1; Range: 0.0-0.4; Units: K/mm3; Status: F Lab Order: Complete Comphrensive Metabolic; SPEC'M 10/08/16 14:22 Test: GLUCOSE, FASTING; Value: 117; Range: 70-105; Abnormal: Above high normal; Units: MG/DL; Status: F Test: BLOOD UREA NITROGEN; Value: 11; Range: 7-18; Units: MG/DL; Status: F Test: CREATININE FOR GFR; Value: 1.19; Range: 0.70-1.30; Units: MG/DL; Status: F Test: SODIUM LEVEL; Range: 136-145; Units: MEQ/L; Status: I Test: POTASSIUM SERUM; Range: 3.5-5.1; Units: MEQ/L; Status: I Test: CHLORIDE LEVEL; Range: 98-107; Units: MEQ/L; Status: I Test: CARBON DIOXIDE LEVEL; Range: 21-32; Units: MEQ/L; Status: I Test: ANION GAP; Range: 8-16; Units: MEQ/L; Status: I Test: CALCIUM LEVEL; Range: 8.5-10.1; Units: MG/DL; Status: I Test: AST/SGOT; Range: 15-37; Units: U/L; Status: I Test: ALT/SGPT; Range: 12-78; Units: U/L; Status: I Test: ALKALINE PHOSPHATASE; Range: 45-117; Units: U/L; Status: I Test: BILIRUBIN,TOTAL; Range: 0.2-1.0; Units: MG/DL; Status: I Test: TOTAL PROTEIN; Range: 6.4-8.2; Units: GM/DL; Status: I Test: ALBUMIN; Range: 3.2-5.2; Units: GM/DL; Status: I Test: ALBUMIN/GLOBULIN RATIO; Range: 1.00-1.93; Status: I Test: GLOMERULAR FILTRATION RATE; Value: > 60.0; Range: >60; Status: F Test: SODIUM LEVEL; Value: 137; Range: 136-145; Units: MEQ/L; Status: F Test: POTASSIUM SERUM; Value: 3.4; Range: 3.5-5.1; Abnormal: Below low normal; Units: MEQ/L; Status: F Test: CHLORIDE LEVEL; Value: 104; Range: 98-107; Units: MEQ/L; Status: F Test: CARBON DIOXIDE LEVEL; Value: 21; Range: 21-32; Units: MEQ/L; Status: F Test: ANION GAP; Value: 12; Range: 8-16; Units: MEQ/L; Status: F Test: CALCIUM LEVEL; Value: 8.8; Range: 8.5-10.1; Units: MG/DL; Status: F Test: AST/SGOT; Value: 18; Range: 15-37; Units: U/L; Status: F Test: ALT/SGPT; Value: 54; Range: 12-78; Units: U/L; Status: F Test: ALKALINE PHOSPHATASE; Value: 95; Range: 45-117; Units: U/L; Status: F Test: BILIRUBIN,TOTAL; Value: 0.7; Range: 0.2-1.0; Units: MG/DL; Status: F Test: TOTAL PROTEIN; Value: 7.8; Range: 6.4-8.2; Units: GM/DL; Status: F Test: ALBUMIN; Value: 3.6; Range: 3.2-5.2; Units: GM/DL; Status: F Test: ALBUMIN/GLOBULIN RATIO; Value: 0.86; Range: 1.00-1.93; Abnormal: Below low normal; Status: F Test Note: ; Units are mL/min/1.73 m2 Chronic Kidney Disease Staging per NKF: Stage I & II GFR >=60 Normal to Mildly Decreased Stage III GFR 30-59 Moderately Decreased Stage IV GFR 15-29 Severely Decreased Stage V GFR <15 Very Little GFR Left ESRD GFR <15 on GLASS INSTALLER TECHNICIAN Lab Order: Lactic Acid (Carbajal tube on ice); SPEC'M 10/08/16 14:22 Test: LACTIC ACID LEVEL, LACTATE; Value: 3.1; Range: 0.4-2.0; Abnormal: Above upper panic limits; Units: MMOL/L; Status: F Lab Order: Monoscreen; SPEC'M 10/08/16 14:22 Test: MONO SCRN; Value: NEGATIVE; Range: NEGATIVE; Status: F Lab Order: -Influenza A&B Rapid Antigen - Nose; SPEC'M 10/08/16 13:07 Test: INFLUENZA A RAPID SCR by ICA; Value: INFLUENZA A RESULTS NEGATIVE; Status: F Test: INFLUENZA A RAPID SCR by ICA; Value: Comments:; Status: F Test: INFLUENZA B RAPID SCR by ICA; Value: INFLUENZA B RESULTS NEGATIVE; Status: F Test Note: ; The Influenza test is a direct rapid immunoassay for the qualitative detection of Influenza viral antigen. Cell culture (Viral Culture) testing should be considered to confirm NEGATIVE results and to assist in detecting other viruses that can provide similar clinical symptoms. Please contact the lab within 24 hours [phone] if confirmatory testing is desired. Lab Order: AMYLASE; SPEC'M 10/08/16 14:22 Test: AMYLASE; Value: 30; Range: 25-115; Units: U/L; Status: F Lab Order: LIPASE; SPEC'M 10/08/16 14:22 Test: LIPASE; Value: 72; Range: 73-393; Abnormal: Below low normal; Units: U/L; Status: F Lab Order: URINALYSIS; SPEC'M 10/08/16 13:08 Test: APPEARANCE, URINE; Value: CLEAR; Range: CLEAR; Status: F Test: COLOR, URINE; Value: YELLOW; Range: YELLOW; Status: F Test: PH,URINE; Value: 7.0; Range: 5.0-9.0; Units: UNITS; Status: F Test: SPECIFIC GRAVITY URINE AUTO; Value: 1.030; Range: 1.002-1.035; Status: F Test: PROTEIN, URINE AUTO; Value: 1+; Range: NEGATIVE; Abnormal: Above high normal; Units: mg/dL; Status: F Test: GLUCOSE, URINE (UA) AUTO; Value: NEGATIVE; Range: NEGATIVE; Units: mg/dL; Status: F Test: KETONE, URINE AUTO; Value: TRACE; Range: NEGATIVE; Abnormal: Above high normal; Units: mg/dL; Status: F Test: UROBILINOGEN, URINE AUTO; Value: 0.2; Range: 0.0-2.0; Units: mg/dL; Status: F Test: BILIRUBIN, URINE AUTO; Value: NEGATIVE; Range: NEGATIVE; Status: F Test: NITRITE, URINE AUTO; Value: NEGATIVE; Range: NEGATIVE; Status: F Test: LEUKOCYTE ESTERASE, URINE AUTO; Value: NEGATIVE; Range: NEGATIVE; Status: F Test: BLOOD, URINE BLOOD; Value: NEGATIVE; Range: NEGATIVE; Status: F Test: WBC, URINE AUTO; Value: 2; Range: 0-3; Units: /HPF; Status: F Test: RBC, URINE AUTO; Value: 2; Range: 0-3; Units: /HPF; Status: F Test: BACTERIA, URINE AUTO; Value: NEGATIVE; Range: NEGATIVE; Status: F Test: SQUAMOUS EPITHELIAL CELL UR AU; Value: 1; Range: 0-6; Units: /HPF; Status: F Test: MUCUS, URINE; Value: SMALL; Range: NEGATIVE; Status: F Test: HYALINE CAST, URINE AUTO; Value: 0; Range: 0-1; Units: /LPF; Status: F Lab Order: ERYTHROCYTE SEDIMENTATION RATE; SPEC'M 10/08/16 14:22 Test: ERYTHROCYTE SEDIMENTATION RATE; Value: 46; Range: 0-15; Abnormal: Above high normal; Units: mm/hr; Status: F Lab Order: C REACTIVE PROTEIN QUANTITATIV; SPEC'M 10/08/16 14:22 Test: C REACTIVE PROTEIN QUANTITATIV; Value: 13.50; Range: 0.00-0.30; Abnormal: Above high normal; Units: MG/DL; Status: F Radiology Order: Chest, 2 View (pa\\E\\lat) Test: Chest, 2 View (pa\\E\\lat) REASON FOR EXAMINATION: Cough; Chest x-ray: Two views.; ; History: Cough .; ; Comparison study: No comparisons .; ; Findings: The lungs are well inflated and free of infiltrate. The pleural; angles are sharp. The heart size is normal. Pulmonary vasculature is not; increased. No significant bony abnormality is seen.; ; Impression:; ; Negative chest x-ray.; ; ; Signed by; Lebron Wong MD 10/08/2016 02:34 P; Radiology Order: CT ABD & PELVIS WITH CONTRAST Test: CT ABD & PELVIS WITH CONTRAST REASON FOR EXAMINATION: ABD PAIN FEVER; CT abdomen and pelvis with IV, but without oral contrast:; ; History: Abdominal pain and fever.; ; CT contrast dose: 100 ml of Isovue 370 is administered intravenously.; ; CT findings: Preliminary patient relations coordinator radiograph demonstrates a solitary loop of mildly; dilated small bowel in the left mid abdomen.; ; The lung bases are clear. There is mild diffuse fatty infiltration of the liver.; Gallbladder and pancreas are unremarkable. No adrenal lesion is seen. The; kidneys enhance symmetrically and are morphologically intact. No splenic; abnormality is observed. No retroperitoneal mass or adenopathy is seen. Normal; caliber aorta is noted. A normal appendix is seen in the right lower quadrant.; There is no obstructive lesion seen. Solitary loop of small bowel is seen in the; left mid abdomen with air and some fluid. No evidence of free air or abscess.; ; Impression:; ; Evidence of fatty infiltration of the liver. No acute abdominal abnormality or; pelvic abnormality. Normal appendix seen.; ; ; Signed by; Lebron Wong MD 10/08/2016 05:42 P; Radiology Order: Chest, 1 view Test: Chest, 1 view REASON FOR EXAMINATION: POST CENTRAL LINE PLACEMENT; Portable chest x-ray: Single view.; ; History: Post central line placement.; ; Findings: A left subclavian line has been inserted. Its course is consistent; with a termination in the right subclavian vein having crossed the; brachiocephalic vein. There is no evidence of pneumothorax. The lungs are well; inflated and clear. Heart is not enlarged.; ; Impression:; ; The left subclavian line tip is in the right subclavian vein region. No; pneumothorax seen.; ; ; ; ; Unreviewed; Outcome: 15:04 Decision to Hospitalize by Provider. ef1 16:27 Discharge Assessment: patient administered narcotics - no. The following High [facility] Discharge criteria are identified: None. Admitted to Med/Surg accompanied by tech, via stretcher. Condition: stable. No special radiology studies were completed. Admission hand-off: Report Faxed Fax receipt verified by Rula. Property :Personal belongings accompany Pt. 16:30 Patient left the ED. srm 20:18 Patient left the ED. ko2 Signatures: Dispatcher [employer] EDDE Olive Davis RN Aaliyah Egan, Medical Center Manager Unit deg Gurinder Carr RN Anoop Dumont RN RN jmk Michelson, Staci, RN RN srm Scott, Debra, Gautam Hoffman RN, STITCHER TAPE CONTROLLED MACHINE STITCHER TAPE CONTROLLED MACHINE kb5 Ya Murrell, PA-C PA-C ef1 Chrissie Lynch Gainslee gr2 Juany Strickland,Teri Wan RN, RN RN ko2 Dori Jessica jp5 Demian Hawley,RT RT cs15 MTDD
[2016-10-08 20:34] VITALS: BP 142/93
[2016-10-08] MEDS ORDERED: POTASSIUM CHLORIDE 10 MEQ SR TABLET PO ONE (21:00)
[2016-10-08] MEDS ORDERED: GI COCKTAIL 50ML BTL(HYOSCYAMINE/MAALOX/LIDOCAINE VISCOUS)(1:3:1) PO ONE (21:00)
[2016-10-08] MEDS ORDERED: HEPARIN SOD (PORCINE) 5000 UNITS/ML VIAL SC SCH (22:00)
[2016-10-08] MEDS: metroNIDAZOLE 500 MG in APPROPRIATE DILUENT 1 EA IV SCH (22:30)
[2016-10-08 23:32] VITALS: BP 145/78
[2016-10-08] MEDS: ACETAMINOPHEN TAB 650MG DOSE (2X325MG) PO PRN (23:39)
[2016-10-09] MEDS: ACETAMINOPHEN TAB 650MG DOSE (2X325MG) PO PRN (04:55)
[2016-10-09 04:58] VITALS: BP 133/76
[2016-10-09] MEDS ORDERED: CIPROFLOXACIN 400 MG in APPROPRIATE DILUENT 1 EA IV SCH (05:00)
[2016-10-09] MEDS: metroNIDAZOLE 500 MG in APPROPRIATE DILUENT 1 EA IV SCH ×2 (06:02→14:03)
[2016-10-09 06:42] LABS: BASO % 0.2 % (0.0-1.0); EOS # 0.1 K/mm3 (0.0-0.50); EOS % 0.6 % (0.0-3.0); LARGE UNSTAINED CELL # 0.2 K/mm3 (0.0-0.4); LARGE UNSTAINED CELL % 1.7 % (0.0-4.0); LYMPH % 8.3 % (24.0-44.0); MEAN CORPUSCULAR HEMOGLOBIN 29.7 pg (27.0-33.0); MEAN CORPUSCULAR VOLUME 87.2 fl (80.0-96.0); MONO # 0.8 K/mm3 (0.0-0.8); MONO % 6.6 % (0.0-5.0); NEUTROPHILS # 9.9 K/mm3 (1.8-7.7); NEUTROPHILS % 82.6 % (36.0-66.0); PLATELET COUNT, AUTOMATED 165 k/mm3 (150-450); RED CELL DISTRIBUTION WIDTH 13.1 % (11.5-14.5); WHITE BLOOD COUNT 11.9 K/mm3 (4.0-10.0)
[2016-10-09 06:48] LABS: ANION GAP 9 MEQ/L (8-16); BLOOD UREA NITROGEN 9 MG/DL (7-18); CALCIUM LEVEL 7.8 MG/DL (8.5-10.1); CARBON DIOXIDE LEVEL 24 MEQ/L (21-32); CHLORIDE LEVEL 108 MEQ/L (98-107); CREATININE FOR GFR 0.92 MG/DL (0.70-1.30); GLOMERULAR FILTRATION RATE > 60.0 (>60); GLUCOSE, FASTING 113 MG/DL (70-105); POTASSIUM SERUM 3.7 MEQ/L (3.5-5.1); SODIUM LEVEL 141 MEQ/L (136-145)
[2016-10-09 08:00] VITALS: BP 157/97
[2016-10-09 12:00] VITALS: BP 146/99
--- NOTE | 2016-10-09 12:29 | IPNPDOC ---
Assessment/Plan Date Seen The patient was seen on 10/09/16. Problems Problems: (1) Sepsis Status: Acute Problem Text: Present on admission. Secondary to bacterial colitis. Now resolved. (2) Diarrhea of infectious origin Status: Acute Problem Text: EPEC on GI panel. Cipro and Flagyl day #2. Tolerating regular diet. IVF stopped. (3) PETEY on CPAP Status: Chronic Problem Specific Plan: Monitor Clinically (4) Fever Status: Resolved Problem Specific Plan: Monitor Clinically (5) Swelling of extremity, right Status: Acute Problem Text: R/o DVT. if negative consider DC home. Plan / VTE VTE Prophylaxis Ordered?: Yes (heparin) Plan Plan Text Attending note: I saw and evaluated the patient, and I agree with the plan of care as discussed and documented in the note. However, patient's vitals are currently stable, patient is taking normal oral intake, and maintaining hydration. Sepsis has resolved. Cipro has equal bioavailability for oral intake. Patient would like to go home, and agree that further home management would be fine. Nursing order to remove PICC line. Discharge note to be dictated. Braden Timmons MD Subjective Review of Systems CC/HPI The patient is a 26-year-old male admitted with a reason for visit of FEVER. Events since last encounter EPEC on GI panel. Patient states feeling well. Requesting to go home. Using CPAP as directed. C?o RLE pain since yesterday with discoloration. Constitutional: Reports: Fever (100.9 10/08/2016 at 2300), Denies: Chills ENT: Denies: Head Aches Skin: Reports: Rash (RLE) Pulmonary: Denies: Cough, Dyspnea Cardiovascular: Reports: Other Symptoms (RLE pain with swellign and erythema), Denies: Chest Pain, Palpitations Gastrointestinal: Denies: Abdominal Pain, Constipation, Diarrhea, Nausea, Vomiting Genitourinary: Denies: Dysuria, Frequency Psych: Reports: Mood Normal Objective Physical Examination General Exam: Positive: Alert, No Acute Distress Eye Exam: Positive: PERRLA ENT Exam: Positive: Atraumatic, Mucous membr. moist/pink Neck Exam: Positive: Supple, Negative: JVD Chest Exam: Positive: Clear to auscultation, Normal air movement Heart Exam: Positive: Normal S1, Normal S2, Rate Normal Telemetry: Positive: No significant arrhythmia Abdomen Exam: Positive: Normal bowel sounds, Soft, Negative: Tenderness Extremity Exam: Positive: Other (RLE with moderate swelling, posterior discoloration/erythema, pain on palpation. ) Vital Signs/I&O Vital Signs Date Time Temp Pulse Resp B/P Pulse Ox O2 Delivery O2 Flow Rate FiO2 10/09/16 08:00 98.0 112 20 157/97 98 Room Air I&O- Last 24 Hours up to 6 AM 10/09/16 06:00 Intake Total 1125 ml Output Total 500 ml Balance 625 ml Laboratory Data Labs 24H Laboratory Tests 2 10/08/16 13:08: Urine Amorphous Sediment , Urine Appearance CLEAR, Urine Color YELLOW, Urine pH 7.0, Urine Specific [place] 1.030, Urine Protein 1+H, Urine Glucose (UA) NEGATIVE, Urine Ketones TRACEH, Urine Urobilinogen 0.2, Urine Bilirubin NEGATIVE , Urine Leukocyte Esterase NEGATIVE, Urine Bacteria (Auto) NEGATIVE, Urine Blood NEGATIVE, Urine Calcium Carbonate Cryst(Auto) , Urine Calcium Oxalate Cryst (Auto) , Urine Calcium Phosphate Karlie (Auto) , Urine Cellular Casts , Urine Cystine Crystals , Urine Granular Casts (Auto) , Urine Hyaline Casts (Auto ) 0, Urine Leucine Crystals , Urine Mucus (Auto) SMALL, Urine Nitrite NEGATIVE, Urine Oval Fat Bodies (Auto) , Urine RBC (Auto) 2, Urine Renal Epithelial Cells , Urine Sperm (Auto) , Urine Squamous Epithelial Cells 1, Urine Transitional Epithelial Cells , Urine Trichomonas (Auto) , Urine Triple Phosphate Cryst (Auto ) , Urine Tyrosine Crystals , Urine Uric Acid Crystals (Auto) , Urine WBC (Auto ) 2, Urine Waxy Casts (Auto) , Urine Yeast-Like Cells (Auto) 10/08/16 14:22: Blood Urea Nitrogen 11, Creatinine 1.19, Sodium Level 137, Potassium Level 3.4L , Chloride Level 104, Carbon Dioxide Level 21, Calcium Level 8.8, Aspartate Amino Transf (AST/SGOT) 18, Alanine Aminotransferase (ALT/SGPT) 54, Alkaline Phosphatase 95, Total Bilirubin 0.7, Total Protein 7.8, Albumin 3.6, Albumin/ Globulin Ratio 0.86L, Amylase Level 30, Anion Gap 12, White Blood Count 8.2, Red Blood Count 7.21H, Hemoglobin 21.8*H, Hematocrit 63.9H, Mean Corpuscular Volume 88.6, Mean Corpuscular Hemoglobin 30.3, Mean Corpuscular Hemoglobin Concent 34.2, Red Cell Distribution Width 12.8, Platelet Count 76L, Neutrophils (%) (Auto) 81.7H, Lymphocytes (%) (Auto) 9.8L, Monocytes (%) (Auto) 6.3H, Eosinophils (%) (Auto) 0.4, Basophils (%) (Auto) 0.3, Neutrophils # (Auto) 6.7, Lymphocytes # (Auto) 0.8L, Monocytes # (Auto) 0.5, Eosinophils # (Auto) 0.0, Basophils # (Auto) 0.0, C-Reactive Protein, Quantitative 13.50H, Erythrocyte Sedimentation Rate 46H, Glomerular Filtration Rate > 60.0, Lactic Acid Level 3.1 *H, Large Unclassified Cells # 0.1, Large Unclassified Cells % 1.6, Lipase 72L, Monoscreen NEGATIVE 10/09/16 06:11: White Blood Count 11.9H, Red Blood Count 4.65, Hemoglobin 13.8#L, Hematocrit 40.5L, Mean Corpuscular Volume 87.2, Mean Corpuscular Hemoglobin 29.7, Mean Corpuscular Hemoglobin Concent 34.0, Red Cell Distribution Width 13.1, Platelet Count 165, Neutrophils (%) (Auto) 82.6H, Lymphocytes (%) (Auto) 8.3L, Monocytes (%) (Auto) 6.6H, Eosinophils (%) (Auto) 0.6, Basophils (%) (Auto) 0.2, Neutrophils # (Auto) 9.9H, Lymphocytes # (Auto) 1.0L, Monocytes # (Auto) 0.8, Eosinophils # (Auto) 0.1, Basophils # (Auto) 0.0, Lactic Acid Level 0.7, Large Unclassified Cells # 0.2, Large Unclassified Cells % 1.7 10/09/16 06:12: Blood Urea Nitrogen 9, Creatinine 0.92, Sodium Level 141, Potassium Level 3.7, Chloride Level 108H, Carbon Dioxide Level 24, Calcium Level 7.8L, Anion Gap 9, Glomerular Filtration Rate > 60.0 CBC/BMP Laboratory Tests 10/08/16 14:22 Calcium Level 8.8, Aspartate Amino Transf (AST/SGOT) 18, Alanine Aminotransferase (ALT/SGPT) 54, Alkaline Phosphatase 95, Total Bilirubin 0.7, Total Protein 7.8, Albumin 3.6, Red Blood Count 7.21 H, Mean Corpuscular Volume 88.6, Mean Corpuscular Hemoglobin 30.3, Mean Corpuscular Hemoglobin Concent 34.2 , Red Cell Distribution Width 12.8, Neutrophils (%) (Auto) 81.7 H, Lymphocytes ( %) (Auto) 9.8 L, Monocytes (%) (Auto) 6.3 H, Eosinophils (%) (Auto) 0.4, Basophils (%) (Auto) 0.3, Neutrophils # (Auto) 6.7, Lymphocytes # (Auto) 0.8 L, Monocytes # (Auto) 0.5, Eosinophils # (Auto) 0.0, Basophils # (Auto) 0.0 10/09/16 06:11 Red Blood Count 4.65, Mean Corpuscular Volume 87.2, Mean Corpuscular Hemoglobin 29.7, Mean Corpuscular Hemoglobin Concent 34.0, Red Cell Distribution Width 13.1 , Neutrophils (%) (Auto) 82.6 H, Lymphocytes (%) (Auto) 8.3 L, Monocytes (%) ( Auto) 6.6 H, Eosinophils (%) (Auto) 0.6, Basophils (%) (Auto) 0.2, Neutrophils # (Auto) 9.9 H, Lymphocytes # (Auto) 1.0 L, Monocytes # (Auto) 0.8, Eosinophils # (Auto) 0.1, Basophils # (Auto) 0.0 10/09/16 06:12 Calcium Level 7.8 L Microbiology Microbiology 10/08/16 Blood Culture, Received Pending 10/08/16 Blood Culture, Received Pending 10/09/16 Gastrointestinal Tract Panel (PCR) - Final, Complete Enteropathogenic E.coli 10/08/16 Influenza Virus Type A Antigen - Final, Complete 10/08/16 Influenza Virus Type B Antigen - Final, Complete 10/08/16 Urine Culture - Final, Complete Cris Duron Oct 09, 2016 12:29 BRADEN TIMMONS MD Oct 16, 2016 14:12
--- NOTE | 2016-10-09 14:41 | REP ---
DUPLEX EXTREMITY VENOUS ULTRASOUND: Right lower extremity. HISTORY: Question deep vein thrombosis right lower extremity. FINDINGS: The deep veins are anechoic and fully compressible from the groin to the popliteal fossa in the right lower extremity. Color flow imaging is homogeneous. Spectral Doppler interrogation demonstrates intact respiratory variation in flow and normal manual augmentation of flow. There is no evidence of deep vein thrombosis. There are three lymph nodes identified in the right groin which appears somewhat hypertrophied. These measure as follows: 1.7 x 0.7 x 1.7 cm, 3.3 x 1.4 x 2.1 cm, and 3.1 x 1.6 x 2.2 cm. IMPRESSION: Negative right lower extremity duplex venous ultrasound. No evidence of deep vein thrombosis. Mild right groin lymphadenopathy. Signed by Lebron Wong MD 10/09/2016 04:25 P
[2016-10-09] MEDS ORDERED: CIPR500T19 PO (16:17)
--- NOTE | 2016-10-09 16:20 | DS.PDOC ---
Discharge Summary General Date of Admission Oct 08, 2016 at 14:35 Date of Discharge 10/09/16 Primary Care Physician: Siva Meehan MD Attending Physician: MILTON ODONNELL MD Specialist/Consultants Involve: DEBBIE TALBERT MD Discharge Summary PROCEDURES PERFORMED DURING STAY: PICC line COMPLICATIONS/CHIEF COMPLAINT: FEVER ADMISSION DIAGNOSES: 1. Sepsis 2. polycythemia 3. Thrombocytopenia 4. lactic acidosis DISCHARGE DIAGNOSES: 1. Sepsis secondary bacterial colitis HISTORY OF PRESENT ILLNESS: On the day of discharge, the pt stated that he was feeling well, eating and drinking, and denied fevers, chills, or sweats. HOSPITAL COURSE: Pt was admitted 10/08/16 with severe dehydration, tachycardia, fever, and lactic acidosis, meeting sepsis criteria. Stool culture was positive for enteropathic ecoli. Pt required PICC line due to inability to gain significant access and concern for unstable hemodynamics. His vitals stabilized with IV fluids and abx. He was tolerating PO fluids and diet, and was transitioned to PO abx. DISCHARGE MEDICATIONS: Please see below. ALLERGIES: Please see below. PHYSICAL EXAMINATION ON DISCHARGE: VITAL SIGNS: Please see below. GENERAL: morbidly obese, comfortable, NAD HEENT: sclera clear, MMM NECK: enlarged circumference CARDIOVASCULAR EXAMINATION: RRR, S1, S2, no m/r/g, no heave RESPIRATORY EXAMINATION: CBTA, no w/r/r, normal work of breathing ABDOMINAL EXAMINATION: morbidly obese, soft, nontender, +BS EXTREMITIES: no edema SKIN: no rashes or lesions NEUROLOGICAL EXAMINATION: alert PSYCHIATRIC EXAMINATION: normal mood and affect LABORATORY DATA: Please see below. IMAGING: CXR: negative CT ab: negative vascular u/s: negative for DVT VTE Prophylaxis ordered?: yes DISCHARGE CONDITION: Stable and improved DISPOSITION: discharged home ACTIVITY: As tolerated DIET: Regular ITEMS TO FOLLOWUP ON OUTPATIENT: 1. electrolyes DISCHARGE PLAN AND INSTRUCTIONS: 1. Pt to complete course of cipro 2. followup with Dr Meehan in 1-2 days TIME SPENT ON DISCHARGE: Less than 30 minutes Milton Odonnell MD Vital Signs/I&Os Vital Signs Date Time Temp Pulse Resp B/P Pulse Ox O2 Delivery O2 Flow Rate FiO2 10/09/16 12:00 98.7 113 20 146/99 97 Room Air I&O- Last 24 Hours up to 6 AM 10/09/16 06:00 Intake Total 1125 ml Output Total 500 ml Balance 625 ml Laboratory Data Labs 24H Laboratory Tests 2 10/09/16 06:11: White Blood Count 11.9H, Red Blood Count 4.65, Hemoglobin 13.8#L, Hematocrit 40.5L, Mean Corpuscular Volume 87.2, Mean Corpuscular Hemoglobin 29.7, Mean Corpuscular Hemoglobin Concent 34.0, Red Cell Distribution Width 13.1, Platelet Count 165, Neutrophils (%) (Auto) 82.6H, Lymphocytes (%) (Auto) 8.3L, Monocytes (%) (Auto) 6.6H, Eosinophils (%) (Auto) 0.6, Basophils (%) (Auto) 0.2, Neutrophils # (Auto) 9.9H, Lymphocytes # (Auto) 1.0L, Monocytes # (Auto) 0.8, Eosinophils # (Auto) 0.1, Basophils # (Auto) 0.0, Lactic Acid Level 0.7, Large Unclassified Cells # 0.2, Large Unclassified Cells % 1.7 10/09/16 06:12: Anion Gap 9, Blood Urea Nitrogen 9, Creatinine 0.92, Sodium Level 141, Potassium Level 3.7, Chloride Level 108H, Carbon Dioxide Level 24, Calcium Level 7.8L, Glomerular Filtration Rate > 60.0 10/09/16 12:49: Lactic Acid Level 1.0 CBC/BMP Laboratory Tests 10/09/16 06:11 Red Blood Count 4.65, Mean Corpuscular Volume 87.2, Mean Corpuscular Hemoglobin 29.7, Mean Corpuscular Hemoglobin Concent 34.0, Red Cell Distribution Width 13.1 , Neutrophils (%) (Auto) 82.6 H, Lymphocytes (%) (Auto) 8.3 L, Monocytes (%) ( Auto) 6.6 H, Eosinophils (%) (Auto) 0.6, Basophils (%) (Auto) 0.2, Neutrophils # (Auto) 9.9 H, Lymphocytes # (Auto) 1.0 L, Monocytes # (Auto) 0.8, Eosinophils # (Auto) 0.1, Basophils # (Auto) 0.0 10/09/16 06:12 Calcium Level 7.8 L Microbiology Microbiology 10/08/16 Blood Culture - Preliminary, Resulted No growth after 24 hours . All specim... 10/08/16 Blood Culture - Preliminary, Resulted No growth after 24 hours . All specim... 10/09/16 Gastrointestinal Tract Panel (PCR) - Final, Complete Enteropathogenic E.coli 10/08/16 Influenza Virus Type A Antigen - Final, Complete 10/08/16 Influenza Virus Type B Antigen - Final, Complete 10/08/16 Urine Culture - Final, Complete Medications Scheduled (Ciprofloxacin ER 500 mg) 1 Tab Tab 1 TAB PO BID Loratadine (Claritin) 10 Mg Tab 10 MG PO Q2D Scheduled PRN (Flonase Allergy Relief) 50 Mcg/Act Spr 1 SPRAY NA BID PRN PRN CONGESTION Acetaminophen (Acetaminophen) 500 Mg Tab 1,000 MG PO PRN PAIN Diphenhydramine HCl (Diphenhydramine HCl) 25 Mg Cap 25 MG PO PRN HIVES Naproxen Sodium (Aleve) 220 Mg Tab 220 MG PO BID PRN PRN PAIN Allergies Coded Allergies: Latex (Verified Allergy, Intermediate, RASH, 12/22/12) Bee Venom (Unverified Allergy, Unknown, 10/08/16) Cinnamon (Unverified Allergy, Unknown, 10/08/16) No Known Drug Allergy (Verified Allergy, Unknown, 12/22/12) MILTON ODONNELL MD Oct 09, 2016 16:20
[2016-10-10 10:15] LABS: ERYTHROPOIETIN 7.9 mIU/mL (2.6-18.5)
--- NOTE | 2016-10-10 21:19 | EDDOCDS ---
Physician Documentation [facility] Name: Josiah Orellana Age: 26 yrs Sex: Male : 1990 Arrival Date: 10/08/2016 Time: 12:24 Bed 2 Private MD: Siva Meehan MD Disposition: 10/08/16 15:04 Hospitalization ordered by Shantell Karimi for Inpatient Admission. Preliminary diagnosis is Fever, unspecified. - Bed requested for PCU. - Status is Inpatient Admission. ko2 - Condition is Stable. - Problem is new. - Symptoms are unchanged. Historical: - Allergies: Latex; - Home Meds: 1. Benadryl 25 mg Oral cap 1 cap 2. Claritin 10 mg Oral tab 1 tab once daily 3. Flonase 50 mcg/actuation Nasal spsn 1 spray 2 times per day 4. Tylenol 1000 mg Oral (Last dose: 10/08/2016 11:00) - PMHx: Seasonal Allergies; - PSHx: Tonsillectomy; Neck Surgery; - Social history: Smoking status: Patient uses tobacco products, current some day smoker. No barriers to communication noted, The patient speaks fluent [place], Speaks appropriately for age. - Family history: Not pertinent. - : The pt / caregiver states he / she is not on anticoagulants. Home medication list is obtained from the patient. - Exposure Risk Screening:: None identified. Vital Signs: 10/08 12:26 BP 144 / 74; Pulse 131; Resp 20 S; Temp 101.3(O); Pulse Ox 98% on R/A; Weight 149.69 kg gr2 / 330.01 lbs (R); Height 5 ft. 4 in. (162.56 cm) (R); Pain 3/10; 14:48 BP 138 / 72; Pulse 162; Resp 24; Temp 100.4(O); Pulse Ox 100% on R/A; Pain 7/10; sew 15:18 BP 133 / 76 (auto/); bcj 15:18 Pulse 155 MON; Pulse Ox 98% ; bcj 16:03 BP 160 / 67 (auto/); bcj 16:05 BP 150 / 67; Pulse 128; Resp 22; Temp 100.6(O); Pulse Ox 95% on R/A; Pain 0/10; srm 16:05 Pulse Ox 97% ; bcj 18:00 BP 128 / 67 (auto/); bcj 18:00 Pulse 120 MON; Pulse Ox 98% ; bcj 18:15 BP 128 / 72 (auto/); ko2 18:15 Pulse 118 MON; Pulse Ox 98% ; ko2 18:30 BP 128 / 62 (auto/); ko2 18:30 Pulse 121 MON; Pulse Ox 97% ; ko2 18:45 BP 121 / 67 (auto/); ko2 18:45 Pulse 122 MON; Pulse Ox 97% ; ko2 19:00 BP 117 / 59 (auto/); ko2 19:00 Pulse 119 MON; Pulse Ox 97% ; ko2 19:15 BP 123 / 66 (auto/); ko2 19:15 Pulse 119 MON; Pulse Ox 98% ; ko2 19:30 BP 112 / 65 (auto/); ko2 19:30 Pulse 124 MON; Pulse Ox 98% ; ko2 19:45 BP 109 / 70 (auto/); ko2 19:45 Pulse 119 MON; Pulse Ox 98% ; ko2 20:00 BP 110 / 68 (auto/); ko2 20:00 Pulse 118 MON; Pulse Ox 98% ; ko2 12:26 Body Mass Index 56.64 (149.69 kg, 162.56 cm) gr2 MDM: 12:57 -Blood Culture (Adults Only), peripheral from different site, or from device/port/PICC ef1 etc. if present ordered. 12:57 Strep Screen, Nursing ordered. ef1 12:57 Obtain sample by nasopharyngeal swab ordered. ef1 12:57 IV Saline Lock ordered. ef1 12:58 CBC with Diff Ordered. EDMS 12:58 Complete Comphrensive Metabolic Ordered. EDMS 12:58 Lactic Acid (Carbajal tube on ice) Ordered. EDMS 12:58 Monoscreen Ordered. EDMS 12:58 -Blood Culture Ordered. EDMS 12:58 -Influenza A&B Rapid Antigen - Nose Ordered. EDMS 12:58 Chest, 2 View (pa\E\lat) Ordered. EDMS 13:02 -Blood Culture (Adults Only), peripheral from different site, or from device/port/PICC sew etc. if present complete. 13:03 BLOOD CULTURES Ordered. EDMS 13:22 Albuterol-Ipratropium 1 neb Nebulizer every 20 minutes x3 ordered. ef1 13:22 Call Respiratory ordered. ef1 13:34 Call Respiratory complete. sew 13:39 [facility] [place] was scanned into [employer] and attached to record. jp5 13:39 Financial registration complete. jp5 13:40 AMYLASE Ordered. EDMS 13:40 LIPASE Ordered. EDMS 14:20 -Influenza A&B Rapid Antigen - Nose Reviewed. ef1 14:36 PICC LINE INSERTION W/SITERITE Ordered. EDMS 14:38 URINE CULTURE Ordered. EDMS 14:40 Admission / Observation Status ordered. EDMS 14:40 CT ABD & PELVIS WITH CONTRAST Ordered. EDMS 14:40 REGULAR DIET ordered. EDMS 14:41 URINALYSIS Ordered. EDMS 14:45 Acetaminophen Tablet 975 mg PO once ordered. ef1 14:45 Ibuprofen 800 mg PO once ordered. ef1 14:47 ERYTHROCYTE SEDIMENTATION RATE Ordered. EDMS 14:47 C REACTIVE PROTEIN QUANTITATIV Ordered. EDMS 14:49 Oxygen at 2L/min via NC ordered. ef1 14:56 BED REQUEST+ADM ordered. EDMS 15:59 GASTROINTESTINAL (GI) PANEL Ordered. EDMS 15:59 MRSA SCREEN Ordered. EDMS 16:11 Ciprofloxacin 400 mg IVPB at 200 mL/hr once over 60 mins ordered. srm 16:23 ERYTHROPOIETIN SERUM Ordered. EDMS 16:23 JAK2 MUTATIONS FOR PATH Ordered. EDMS 17:01 CBC with Diff Reviewed. ef1 17:01 Complete Comphrensive Metabolic Reviewed. ef1 17:01 Lactic Acid (Carbajal tube on ice) Reviewed. ef1 17:01 LIPASE Reviewed. ef1 17:01 URINALYSIS Reviewed. ef1 17:01 ERYTHROCYTE SEDIMENTATION RATE Reviewed. ef1 17:01 C REACTIVE PROTEIN QUANTITATIV Reviewed. ef1 17:01 Monoscreen Reviewed. ef1 17:01 AMYLASE Reviewed. ef1 17:01 Chest, 2 View (pa\E\lat) Reviewed. ef1 17:01 CT ABD & PELVIS WITH CONTRAST Reviewed. ef1 17:14 Chest, 1 view Ordered. EDMS 18:09 NS 0.9% 1000 ml IV at bolus once ordered. kcs 18:09 NS 0.9% 1000 ml IV at bolus once ordered. kcs 18:14 Written Provider Order was scanned into [employer] and attached to record. deg 19:31 LACTIC ACID LEVEL, LACTATE Ordered. EDMS 19:31 LACTIC ACID LEVEL, LACTATE Ordered. EDMS 19:32 BASIC METABOLIC PROFILE Ordered. EDMS 19:32 CBC WITH DIFFERENTIAL Ordered. EDMS 10/09 09:43 T-Sheet-- Draft Copy was scanned into [employer] and attached to record. gb Administered Medications: 10/08 14:01 Drug: Albuterol-Ipratropium 1 neb [ipratropium-albuterol 0.5 mg-3 mg(2.5 mg base)/3 mL cs15 nebulization soln (1 neb)] Route: Nebulizer; 14:20 Drug: Albuterol-Ipratropium 1 neb [ipratropium-albuterol 0.5 mg-3 mg(2.5 mg base)/3 mL cs15 nebulization soln (1 neb)] Route: Nebulizer; 14:34 Drug: Albuterol-Ipratropium 1 neb [ipratropium-albuterol 0.5 mg-3 mg(2.5 mg base)/3 mL cs15 nebulization soln (1 neb)] Route: Nebulizer; 14:45 CANCELLED (Other Intervention Used): Ondansetron 4 mg IVP once ef1 14:46 CANCELLED (Other Intervention Used): ketorolac 30 mg IVP once ef1 15:01 Drug: Acetaminophen 975 mg [acetaminophen 325 mg tablet (3 tabs)] Route: PO; dls 15:01 Drug: Ibuprofen 800 mg [ibuprofen 800 mg tablet (1 tabs)] Route: PO; dls 16:10 CANCELLED (Other Intervention Used): NS 0.9% 1000 ml IV at bolus once srm 16:11 CANCELLED (Other Intervention Used): cefTRIAXone 1 grams IVPB once over 30 mins; dilute srm in 50mL of NS or D5W 16:17 Drug: Ciprofloxacin 400 mg [ciprofloxacin 400 mg/200 mL in 5 % dextrose intravenous srm piggyback] Route: IVPB; Rate: 200 mL/hr; Infused Over: 60 mins; Site: right antecubital; 16:19 CANCELLED (Other Intervention Used): NS 0.9% 1000 ml IV at bolus once srm 18:11 Drug: NS 0.9% 1000 ml [sodium chloride 0.9 % intravenous solution] Route: IV; Rate: bcj bolus; Site: Implantable Access Device; 18:11 Drug: NS 0.9% 1000 ml [sodium chloride 0.9 % intravenous solution] Route: IV; Rate: bcj bolus; Site: Implantable Access Device; Signatures: Dispatcher [employer] EDMS Olive Davis, Aaliyah Egan RN, Director Of Sales And Marketing Unit deg Ernestina Acosta RN RN srm KrissyBettinaa, Reg Reg gb Ya Murrell, PATorrey PATorrey ef1 Chrissie Lynch Emily,Teri Wan RN, RN RN ko2 Dori Jessica jp5 Alhaji Londono RN RN sa Johnson, Bruce RN bcj Scott, Debra RN dls Shelton, Caleb RT cs15 The chart was reviewed and I authenticate all verbal orders and agree with the evaluation and treatment provided.Corrections: (The following items were deleted from the chart) 13:39 13:33 AMYLASE+LAB ordered. EDMS EDMS 13:39 13:33 LIPASE+LAB ordered. EDMS EDMS 14:45 13:30 Ondansetron 4 mg IVP once ordered. ef1 ef1 14:46 12:57 ketorolac 30 mg IVP once ordered. ef1 ef1 14:46 14:41 ERYTHROCYTE SEDIMENTATION RATE ordered. EDMS EDMS 14:46 14:41 C REACTIVE PROTEIN QUANTITATIV ordered. EDMS EDMS 14:47 14:41 LIPASE ordered. EDMS EDMS 14:47 14:41 AMYLASE ordered. EDMS EDMS 15:28 14:38 BLOOD CULTURES ordered. EDMS EDMS 15:59 15:59 GASTROINTESTINAL (GI) PANEL ordered. EDMS EDMS 15:59 15:59 GASTROINTESTINAL (GI) PANEL ordered. EDMS EDMS 16:10 13:30 NS 0.9% 1000 ml IV at bolus once ordered. ef1 srm 16:11 13:30 cefTRIAXone 1 grams IVPB once over 30 mins; dilute in 50mL of NS or D5W ordered. srm ef1 16:19 12:57 NS 0.9% 1000 ml IV at bolus once ordered. ef1 srm Attachments: 13:39 [facility] [place] jp5 18:14 Written Provider Order deg 10/09 09:43 T-Sheet-- Draft Copy gb Chart Complete MTDD
--- NOTE | 2016-10-10 21:19 | EDDOCDS ---
Nurse's Notes [facility] Name: Josiah Orellana Age: 26 yrs Sex: Male : 1990 Arrival Date: 10/08/2016 Time: 12:24 Bed 2 Private MD: Siva Meehan MD Diagnosis: Fever, unspecified Presentation: 10/08 12:33 Presenting complaint: Patient states: cough and fever at home for 2 days. also c/o ead right leg pain, pt states "I pulled a muscle.". Adult Sepsis Screening: The patient does not have new or worsening altered mentation. Patient's respiratory rate is less than 22. Systolic blood pressure is greater than 100. Patient has a qSOFA score of 0- Negative Sepsis Screen. Suicide/Homicide risk assessment- the patient denies having any suicidal and/or homicidal ideations and does not present with any other emotional, behavioral or mental health complaints. Status: Patient is not a service station manager or dependent. Transition of care: patient was not received from another setting of care. 12:33 Acuity: DRE Level 3 ead 12:33 Method Of Arrival: Walkin/Carried/Asstd ead 13:19 Acuity level changed due to meets SIRS criteria or has positive Sepsis Screening. [facility] 13:19 Acuity: DRE Level 2 [facility] Triage Assessment: 12:36 General: Appears in no apparent distress, Behavior is appropriate for age, cooperative. ead Pain: Location: right leg Pain currently is 6 out of 10 on a pain scale. HIV screening NA for this visit Offered previously. EENT: Reports pain in right ear. Respiratory: Airway is patent Respiratory effort is even, unlabored, Reports cough that is. Historical: - Allergies: Latex; - Home Meds: 1. Benadryl 25 mg Oral cap 1 cap 2. Claritin 10 mg Oral tab 1 tab once daily 3. Flonase 50 mcg/actuation Nasal spsn 1 spray 2 times per day 4. Tylenol 1000 mg Oral (Last dose: 10/08/2016 11:00) - PMHx: Seasonal Allergies; - PSHx: Tonsillectomy; Neck Surgery; - Social history: Smoking status: Patient uses tobacco products, current some day smoker. No barriers to communication noted, The patient speaks fluent Belgian, Speaks appropriately for age. - Family history: Not pertinent. - : The pt / caregiver states he / she is not on anticoagulants. Home medication list is obtained from the patient. - Exposure Risk Screening:: None identified. Screenin:10 Screening information is obtained from the parent. Fall risk: No risks identified. dls Assistance ADL's: requires no assistance with activities of daily living. Abuse/DV Screen: The patient / caregiver reports he/she is: not in a situation that causes fear, pain or injury. Nutritional screening: No deficits noted. Advance Directives: Currently, there is no health care proxy. There is no active DNR order. There is no living will. There is no Power of Photo Finisher. Advance directive information has not previously been placed in an [facility] medical record. home support is adequate. Assessment: 14:38 General: Appears morbidly obese male. no resp distress when at rest. speech jmk uninterrupted by resp effort. occasional cough noted that is non productive. Moist pink oral mucosa. Poor personal hygiene. breath sound diminished and obscured by body habitus., despite multiple IV attempts unable to establish IV access. provider aware. Cardiovascular: Capillary refill < 3 seconds Heart tones S1 S2 present Edema is absent. Respiratory: Airway is patent Respiratory effort is even, unlabored, Breath sounds are clear bilaterally. GI: Abdomen is non- distended obese. 16:12 General: Critical value H&H called to Dr. Karimi.. kcs 16:21 General: Appears. srm 16:27 General: Appears in no apparent distress, comfortable, Behavior is cooperative. Pain: srm Denies pain. Derm: Skin is pink, warm & dry. 18:05 General: Appears in no apparent distress, comfortable, Behavior is cooperative. Pain: bcj Denies pain. Cardiovascular: Rhythm is sinus tachycardia. Derm: Skin is pink, warm & dry. 19:18 General: Appears in no apparent distress, comfortable, Behavior is cooperative. Pain: ko2 Denies pain. Neurological: Level of Consciousness is awake, alert. Respiratory: Airway is patent Respiratory effort is even, unlabored, Breath sounds are clear bilaterally. GI: Abdomen is obese. Derm: Skin is pink, warm & dry. 20:08 General: Appears in no apparent distress, comfortable, Behavior is cooperative. ko2 Neurological: Level of Consciousness is awake, alert. Respiratory: Airway is patent Respiratory effort is even, unlabored. Derm: Skin is pink, warm & dry. Vital Signs: 12:26 BP 144 / 74; Pulse 131; Resp 20 S; Temp 101.3(O); Pulse Ox 98% on R/A; Weight 149.69 kg gr2 (R); Height 5 ft. 4 in. (162.56 cm) (R); Pain 3/10; 14:48 BP 138 / 72; Pulse 162; Resp 24; Temp 100.4(O); Pulse Ox 100% on R/A; Pain 7/10; sew 15:18 BP 133 / 76 (auto/); bcj 15:18 Pulse 155 MON; Pulse Ox 98% ; bcj 16:03 BP 160 / 67 (auto/); bcj 16:05 BP 150 / 67; Pulse 128; Resp 22; Temp 100.6(O); Pulse Ox 95% on R/A; Pain 0/10; srm 16:05 Pulse Ox 97% ; bcj 18:00 BP 128 / 67 (auto/); bcj 18:00 Pulse 120 MON; Pulse Ox 98% ; bcj 18:15 BP 128 / 72 (auto/); ko2 18:15 Pulse 118 MON; Pulse Ox 98% ; ko2 18:30 BP 128 / 62 (auto/); ko2 18:30 Pulse 121 MON; Pulse Ox 97% ; ko2 18:45 BP 121 / 67 (auto/); ko2 18:45 Pulse 122 MON; Pulse Ox 97% ; ko2 19:00 BP 117 / 59 (auto/); ko2 19:00 Pulse 119 MON; Pulse Ox 97% ; ko2 19:15 BP 123 / 66 (auto/); ko2 19:15 Pulse 119 MON; Pulse Ox 98% ; ko2 19:30 BP 112 / 65 (auto/); ko2 19:30 Pulse 124 MON; Pulse Ox 98% ; ko2 19:45 BP 109 / 70 (auto/); ko2 19:45 Pulse 119 MON; Pulse Ox 98% ; ko2 20:00 BP 110 / 68 (auto/); ko2 20:00 Pulse 118 MON; Pulse Ox 98% ; ko2 12:26 Body Mass Index 56.64 (149.69 kg, 162.56 cm) gr2 Vitals: 12:26 Log In Time: October 08, 2016 at 12:26. gr2 14:38 Strep Screen is obtained and tested: Negative, a GATSNEG culture is ordered in [facility] and sent. ED Course: 12:25 Patient visited by Shavon Duckworth. gr2 12:25 Siva Meehan is Private Physician. gr2 12:25 Patient moved to Waiting gr2 12:27 Patient visited by Shavon Duckworth. gr2 12:27 Patient moved to Pre RCE gr2 12:35 Triage Initiated ead 12:55 Ya Murrell PA-C is PHCP. ef1 12:55 Gayatri Todd MD is Attending Physician. ef1 12:56 Patient moved to I5 / M5 dls 12:57 Patient visited by Ya Murrell PA-C. ef1 13:22 Patient visited by Ya Murrell PA-C. ef1 13:39 [facility] Payment Agreement was scanned into [employer] | [employer] and attached to record. jp5 13:56 -Influenza A&B Rapid Antigen - Nose Sent. jmk 14:04 Patient visited by Ya Murrell PA-C. ef1 14:20 Patient visited by Ya Murrell PA-C. ef1 14:43 Patient visited by Ya Murrell PA-C. ef1 14:51 Patient visited by Chrissie Lynch. sew 15:04 Shantell Karimi is Hospitalizing Provider. ef1 15:07 URINALYSIS Sent. dls 15:07 URINE CULTURE Sent. dls 15:09 C REACTIVE PROTEIN QUANTITATIV Sent. dls 15:09 ERYTHROCYTE SEDIMENTATION RATE Sent. dls 15:10 The patient / caregiver is instructed regarding the plan of care and ED course. dls Accompanied by Family Member, Patient has correct armband on for positive identification. Placed in gown. 15:12 Patient moved to 2 k 15:13 Chest, 2 View (pa\\E\\lat) Returned. EDMS 15:18 No apparent distress. Resting quietly. Awaiting bed assignment. bcj 15:18 IV is intact. bcj 15:21 Patient visited by Chrissie Lynch. sew 15:21 Repositioned patient. quality assurance monitor final on. Pulse ox on. NIBP on. sew 16:00 Patient visited by Ernestina Acosta, [place]. srm 16:08 Patient visited by Ernestina Acosta, K[place]IGH. srm 16:21 Patient visited by Ernestina Acosta RN. srm 16:27 No apparent distress. Resting quietly. Awaiting bed assignment. srm 16:27 Inserted saline lock: 22 gauge in right forearm. No procedures done that require srm assistance. 16:29 Patient visited by Ernestina Acosta RN. srm 16:40 CT ABD & PELVIS WITH CONTRAST Returned. EDMS 17:30 Assist provider with central line placement of triple lumen in left subclavian. Set up [facility] central line tray. Line placed by Andrew Carr MD Placement verified by CXR, blood return, Dressed with Tegaderm, Patient tolerated well. 17:31 Patient visited by Gurinder Carr RN. bc 17:33 Patient visited by Gurinder Carr RN. bcj 18:10 CT ABD & PELVIS WITH CONTRAST Returned. EDMS 18:11 Patient visited by Gurinder Carr RN. [facility] 18:11 Chest, 1 view Returned. EDMS 18:14 Written Provider Order was scanned into [employer] | [employer] and attached to record. deg 18:56 Teri Laureano RN is Primary Nurse. ko2 19:13 Patient visited by Gautam Jo PCA. kb5 20:11 Patient visited by Gautam Jo PCA. kb5 10/09 09:43 T-Sheet-- Draft Copy was scanned into [employer] | [employer] and attached to record. gb Administered Medications: 10/08 14:01 Drug: Albuterol-Ipratropium 1 neb [ipratropium-albuterol 0.5 mg-3 mg(2.5 mg base)/3 mL cs15 nebulization soln (1 neb)] Route: Nebulizer; 14:20 Drug: Albuterol-Ipratropium 1 neb [ipratropium-albuterol 0.5 mg-3 mg(2.5 mg base)/3 mL cs15 nebulization soln (1 neb)] Route: Nebulizer; 14:34 Drug: Albuterol-Ipratropium 1 neb [ipratropium-albuterol 0.5 mg-3 mg(2.5 mg base)/3 mL cs15 nebulization soln (1 neb)] Route: Nebulizer; 14:45 CANCELLED (Other Intervention Used): Ondansetron 4 mg IVP once ef1 14:46 CANCELLED (Other Intervention Used): ketorolac 30 mg IVP once ef1 15:01 Drug: Acetaminophen 975 mg [acetaminophen 325 mg tablet (3 tabs)] Route: PO; dls 15:01 Drug: Ibuprofen 800 mg [ibuprofen 800 mg tablet (1 tabs)] Route: PO; dls 16:10 CANCELLED (Other Intervention Used): NS 0.9% 1000 ml IV at bolus once srm 16:11 CANCELLED (Other Intervention Used): cefTRIAXone 1 grams IVPB once over 30 mins; dilute srm in 50mL of NS or D5W 16:17 Drug: Ciprofloxacin 400 mg [ciprofloxacin 400 mg/200 mL in 5 % dextrose intravenous srm piggyback] Route: IVPB; Rate: 200 mL/hr; Infused Over: 60 mins; Site: right antecubital; 16:19 CANCELLED (Other Intervention Used): NS 0.9% 1000 ml IV at bolus once srm 18:11 Drug: NS 0.9% 1000 ml [sodium chloride 0.9 % intravenous solution] Route: IV; Rate: bcj bolus; Site: Implantable Access Device; 18:11 Drug: NS 0.9% 1000 ml [sodium chloride 0.9 % intravenous solution] Route: IV; Rate: bcj bolus; Site: Implantable Access Device; RT: 14:01 Initial Med Neb Given as ordered. Respiratory: Respiratory effort is unlabored, cs15 Respiratory pattern is regular Breath sounds are diminished bilaterally. Order Results: Lab Order: CBC with Diff; SPEC'M 10/08/16 14:22 Test: WHITE BLOOD COUNT; Value: 8.2; Range: 4.0-10.0; Units: K/mm3; Status: F Test: RED BLOOD COUNT; Value: 7.21; Range: 4.30-6.10; Abnormal: Above high normal; Units: M/mm3; Status: F Test: HEMOGLOBIN; Value: 21.8; Range: 14.0-18.0; Abnormal: Above upper panic limits; Units: g/dl; Status: F Test: HEMATOCRIT; Value: 63.9; Range: 42.0-52.0; Abnormal: Above high normal; Units: %; Status: F Test: MEAN CORPUSCULAR VOLUME; Value: 88.6; Range: 80.0-96.0; Units: fl; Status: F Test: MEAN CORPUSCULAR HEMOGLOBIN; Value: 30.3; Range: 27.0-33.0; Units: pg; Status: F Test: MEAN CORPUSCULAR HGB CONC; Value: 34.2; Range: 32.0-36.5; Units: g/dl; Status: F Test: RED CELL DISTRIBUTION WIDTH; Value: 12.8; Range: 11.5-14.5; Units: %; Status: F Test: PLATELET COUNT, AUTOMATED; Value: 76; Range: 150-450; Abnormal: Below low normal; Units: k/mm3; Status: F Test: NEUTROPHILS %; Value: 81.7; Range: 36.0-66.0; Abnormal: Above high normal; Units: %; Status: F Test: LYMPH %; Value: 9.8; Range: 24.0-44.0; Abnormal: Below low normal; Units: %; Status: F Test: MONO %; Value: 6.3; Range: 0.0-5.0; Abnormal: Above high normal; Units: %; Status: F Test: EOS %; Value: 0.4; Range: 0.0-3.0; Units: %; Status: F Test: BASO %; Value: 0.3; Range: 0.0-1.0; Units: %; Status: F Test: LARGE UNSTAINED CELL %; Value: 1.6; Range: 0.0-4.0; Units: %; Status: F Test: NEUTROPHILS #; Value: 6.7; Range: 1.8-7.7; Units: K/mm3; Status: F Test: LYMPH #; Value: 0.8; Range: 1.5-6.5; Abnormal: Below low normal; Units: K/mm3; Status: F Test: MONO #; Value: 0.5; Range: 0.0-0.8; Units: K/mm3; Status: F Test: EOS #; Value: 0.0; Range: 0.0-0.50; Units: K/mm3; Status: F Test: BASO #; Value: 0.0; Range: 0.0-0.2; Units: K/mm3; Status: F Test: LARGE UNSTAINED CELL #; Value: 0.1; Range: 0.0-0.4; Units: K/mm3; Status: F Lab Order: Complete Comphrensive Metabolic; SPEC'M 10/08/16 14:22 Test: GLUCOSE, FASTING; Value: 117; Range: 70-105; Abnormal: Above high normal; Units: MG/DL; Status: F Test: BLOOD UREA NITROGEN; Value: 11; Range: 7-18; Units: MG/DL; Status: F Test: CREATININE FOR GFR; Value: 1.19; Range: 0.70-1.30; Units: MG/DL; Status: F Test: SODIUM LEVEL; Range: 136-145; Units: MEQ/L; Status: I Test: POTASSIUM SERUM; Range: 3.5-5.1; Units: MEQ/L; Status: I Test: CHLORIDE LEVEL; Range: 98-107; Units: MEQ/L; Status: I Test: CARBON DIOXIDE LEVEL; Range: 21-32; Units: MEQ/L; Status: I Test: ANION GAP; Range: 8-16; Units: MEQ/L; Status: I Test: CALCIUM LEVEL; Range: 8.5-10.1; Units: MG/DL; Status: I Test: AST/SGOT; Range: 15-37; Units: U/L; Status: I Test: ALT/SGPT; Range: 12-78; Units: U/L; Status: I Test: ALKALINE PHOSPHATASE; Range: 45-117; Units: U/L; Status: I Test: BILIRUBIN,TOTAL; Range: 0.2-1.0; Units: MG/DL; Status: I Test: TOTAL PROTEIN; Range: 6.4-8.2; Units: GM/DL; Status: I Test: ALBUMIN; Range: 3.2-5.2; Units: GM/DL; Status: I Test: ALBUMIN/GLOBULIN RATIO; Range: 1.00-1.93; Status: I Test: GLOMERULAR FILTRATION RATE; Value: > 60.0; Range: >60; Status: F Test: SODIUM LEVEL; Value: 137; Range: 136-145; Units: MEQ/L; Status: F Test: POTASSIUM SERUM; Value: 3.4; Range: 3.5-5.1; Abnormal: Below low normal; Units: MEQ/L; Status: F Test: CHLORIDE LEVEL; Value: 104; Range: 98-107; Units: MEQ/L; Status: F Test: CARBON DIOXIDE LEVEL; Value: 21; Range: 21-32; Units: MEQ/L; Status: F Test: ANION GAP; Value: 12; Range: 8-16; Units: MEQ/L; Status: F Test: CALCIUM LEVEL; Value: 8.8; Range: 8.5-10.1; Units: MG/DL; Status: F Test: AST/SGOT; Value: 18; Range: 15-37; Units: U/L; Status: F Test: ALT/SGPT; Value: 54; Range: 12-78; Units: U/L; Status: F Test: ALKALINE PHOSPHATASE; Value: 95; Range: 45-117; Units: U/L; Status: F Test: BILIRUBIN,TOTAL; Value: 0.7; Range: 0.2-1.0; Units: MG/DL; Status: F Test: TOTAL PROTEIN; Value: 7.8; Range: 6.4-8.2; Units: GM/DL; Status: F Test: ALBUMIN; Value: 3.6; Range: 3.2-5.2; Units: GM/DL; Status: F Test: ALBUMIN/GLOBULIN RATIO; Value: 0.86; Range: 1.00-1.93; Abnormal: Below low normal; Status: F Test Note: ; Units are mL/min/1.73 m2 Chronic Kidney Disease Staging per NKF: Stage I & II GFR >=60 Normal to Mildly Decreased Stage III GFR 30-59 Moderately Decreased Stage IV GFR 15-29 Severely Decreased Stage V GFR <15 Very Little GFR Left ESRD GFR <15 on DAY CARE AIDE Lab Order: Lactic Acid (Carbajal tube on ice); SPEC'M 10/08/16 14:22 Test: LACTIC ACID LEVEL, LACTATE; Value: 3.1; Range: 0.4-2.0; Abnormal: Above upper panic limits; Units: MMOL/L; Status: F Lab Order: Monoscreen; SPEC'M 10/08/16 14:22 Test: MONO SCRN; Value: NEGATIVE; Range: NEGATIVE; Status: F Lab Order: -Influenza A&B Rapid Antigen - Nose; SPEC'M 10/08/16 13:07 Test: INFLUENZA A RAPID SCR by ICA; Value: INFLUENZA A RESULTS NEGATIVE; Status: F Test: INFLUENZA A RAPID SCR by ICA; Value: Comments:; Status: F Test: INFLUENZA B RAPID SCR by ICA; Value: INFLUENZA B RESULTS NEGATIVE; Status: F Test Note: ; The Influenza test is a direct rapid immunoassay for the qualitative detection of Influenza viral antigen. Cell culture (Viral Culture) testing should be considered to confirm NEGATIVE results and to assist in detecting other viruses that can provide similar clinical symptoms. Please contact the lab within 24 hours ([phone] if confirmatory testing is desired. Lab Order: AMYLASE; SPEC' 10/08/16 14:22 Test: AMYLASE; Value: 30; Range: 25-115; Units: U/L; Status: F Lab Order: LIPASE; [facility] 10/08/16 14:22 Test: LIPASE; Value: 72; Range: 73-393; Abnormal: Below low normal; Units: U/L; Status: F Lab Order: URINALYSIS; [facility] 10/08/16 13:08 Test: APPEARANCE, URINE; Value: CLEAR; Range: CLEAR; Status: F Test: COLOR, URINE; Value: YELLOW; Range: YELLOW; Status: F Test: PH,URINE; Value: 7.0; Range: 5.0-9.0; Units: UNITS; Status: F Test: SPECIFIC GRAVITY URINE AUTO; Value: 1.030; Range: 1.002-1.035; Status: F Test: PROTEIN, URINE AUTO; Value: 1+; Range: NEGATIVE; Abnormal: Above high normal; Units: mg/dL; Status: F Test: GLUCOSE, URINE (UA) AUTO; Value: NEGATIVE; Range: NEGATIVE; Units: mg/dL; Status: F Test: KETONE, URINE AUTO; Value: TRACE; Range: NEGATIVE; Abnormal: Above high normal; Units: mg/dL; Status: F Test: UROBILINOGEN, URINE AUTO; Value: 0.2; Range: 0.0-2.0; Units: mg/dL; Status: F Test: BILIRUBIN, URINE AUTO; Value: NEGATIVE; Range: NEGATIVE; Status: F Test: NITRITE, URINE AUTO; Value: NEGATIVE; Range: NEGATIVE; Status: F Test: LEUKOCYTE ESTERASE, URINE AUTO; Value: NEGATIVE; Range: NEGATIVE; Status: F Test: BLOOD, URINE BLOOD; Value: NEGATIVE; Range: NEGATIVE; Status: F Test: WBC, URINE AUTO; Value: 2; Range: 0-3; Units: /HPF; Status: F Test: RBC, URINE AUTO; Value: 2; Range: 0-3; Units: /HPF; Status: F Test: BACTERIA, URINE AUTO; Value: NEGATIVE; Range: NEGATIVE; Status: F Test: SQUAMOUS EPITHELIAL CELL UR AU; Value: 1; Range: 0-6; Units: /HPF; Status: F Test: MUCUS, URINE; Value: SMALL; Range: NEGATIVE; Status: F Test: HYALINE CAST, URINE AUTO; Value: 0; Range: 0-1; Units: /LPF; Status: F Lab Order: ERYTHROCYTE SEDIMENTATION RATE; SPEC'M 10/08/16 14:22 Test: ERYTHROCYTE SEDIMENTATION RATE; Value: 46; Range: 0-15; Abnormal: Above high normal; Units: mm/hr; Status: F Lab Order: C REACTIVE PROTEIN QUANTITATIV; SPEC'M 10/08/16 14:22 Test: C REACTIVE PROTEIN QUANTITATIV; Value: 13.50; Range: 0.00-0.30; Abnormal: Above high normal; Units: MG/DL; Status: F Radiology Order: Chest, 2 View (pa\\E\\lat) Test: Chest, 2 View (pa\\E\\lat) REASON FOR EXAMINATION: Cough; Chest x-ray: Two views.; ; History: Cough .; ; Comparison study: No comparisons .; ; Findings: The lungs are well inflated and free of infiltrate. The pleural; angles are sharp. The heart size is normal. Pulmonary vasculature is not; increased. No significant bony abnormality is seen.; ; Impression:; ; Negative chest x-ray.; ; ; Signed by; Lebron Wong MD 10/08/2016 02:34 P; Radiology Order: CT ABD & PELVIS WITH CONTRAST Test: CT ABD & PELVIS WITH CONTRAST REASON FOR EXAMINATION: ABD PAIN FEVER; CT abdomen and pelvis with IV, but without oral contrast:; ; History: Abdominal pain and fever.; ; CT contrast dose: 100 ml of Isovue 370 is administered intravenously.; ; CT findings: Preliminary managing broker radiograph demonstrates a solitary loop of mildly; dilated small bowel in the left mid abdomen.; ; The lung bases are clear. There is mild diffuse fatty infiltration of the liver.; Gallbladder and pancreas are unremarkable. No adrenal lesion is seen. The; kidneys enhance symmetrically and are morphologically intact. No splenic; abnormality is observed. No retroperitoneal mass or adenopathy is seen. Normal; caliber aorta is noted. A normal appendix is seen in the right lower quadrant.; There is no obstructive lesion seen. Solitary loop of small bowel is seen in the; left mid abdomen with air and some fluid. No evidence of free air or abscess.; ; Impression:; ; Evidence of fatty infiltration of the liver. No acute abdominal abnormality or; pelvic abnormality. Normal appendix seen.; ; ; Signed by; Lebron Wong MD 10/08/2016 05:42 P; Radiology Order: Chest, 1 view Test: Chest, 1 view REASON FOR EXAMINATION: POST CENTRAL LINE PLACEMENT; Portable chest x-ray: Single view.; ; History: Post central line placement.; ; Findings: A left subclavian line has been inserted. Its course is consistent; with a termination in the right subclavian vein having crossed the; brachiocephalic vein. There is no evidence of pneumothorax. The lungs are well; inflated and clear. Heart is not enlarged.; ; Impression:; ; The left subclavian line tip is in the right subclavian vein region. No; pneumothorax seen.; ; ; ; ; Unreviewed; Outcome: 15:04 Decision to Hospitalize by Provider. ef1 16:27 Discharge Assessment: patient administered narcotics - no. The following High Risk [facility] Discharge criteria are identified: None. Admitted to Med/Surg accompanied by tech, via stretcher. Condition: stable. No special radiology studies were completed. Admission hand-off: Report Faxed Fax receipt verified by Rula. Property :Personal belongings accompany Pt. 16:30 Patient left the ED. srm 20:18 Patient left the ED. ko2 Signatures: [facility] Olive Davis, RN RN Aaliyah Hills, Ring Sorter Unit deg Gurinder Carr RN RN bcj Knapp, JeanRN Ernestina Quick RN Iris Conner RN RN dls Barnhardt, Gloria, Reg Reg gb Sandro, Gautam, SECURITIES AND REAL ESTATE DIRECTOR SECURITIES AND REAL ESTATE DIRECTOR kb5 Ya Murrell, PA-C PA-C ef1 Chrissie Lynch Gainslee gr2 Juany Strickland,Teri Wan RN, RN RN ko2 Dori Jessica jp5 Hawley,Demian,RT RT cs15 Chart Complete MTDD
--- NOTE | 2016-10-10 21:19 | EDDOCDS ---
Physician Documentation [facility] Name: Josiah Orellana Age: 26 yrs Sex: Male : 1990 Arrival Date: 10/08/2016 Time: 12:24 Bed 2 Private MD: Siva Meehan MD Disposition: 10/08/16 15:04 Hospitalization ordered by Shantell Karimi for Inpatient Admission. Preliminary diagnosis is Fever, unspecified. - Bed requested for PCU. - Status is Inpatient Admission. ko2 - Condition is Stable. - Problem is new. - Symptoms are unchanged. Historical: - Allergies: Latex; - Home Meds: 1. Benadryl 25 mg Oral cap 1 cap 2. Claritin 10 mg Oral tab 1 tab once daily 3. Flonase 50 mcg/actuation Nasal spsn 1 spray 2 times per day 4. Tylenol 1000 mg Oral (Last dose: 10/08/2016 11:00) - PMHx: Seasonal Allergies; - PSHx: Tonsillectomy; Neck Surgery; - Social history: Smoking status: Patient uses tobacco products, current some day smoker. No barriers to communication noted, The patient speaks fluent [place], Speaks appropriately for age. - Family history: Not pertinent. - : The pt / caregiver states he / she is not on anticoagulants. Home medication list is obtained from the patient. - Exposure Risk Screening:: None identified. Vital Signs: 10/08 12:26 BP 144 / 74; Pulse 131; Resp 20 S; Temp 101.3(O); Pulse Ox 98% on R/A; Weight 149.69 kg gr2 / 330.01 lbs (R); Height 5 ft. 4 in. (162.56 cm) (R); Pain 3/10; 14:48 BP 138 / 72; Pulse 162; Resp 24; Temp 100.4(O); Pulse Ox 100% on R/A; Pain 7/10; sew 15:18 BP 133 / 76 (auto/); bcj 15:18 Pulse 155 MON; Pulse Ox 98% ; bcj 16:03 BP 160 / 67 (auto/); bcj 16:05 BP 150 / 67; Pulse 128; Resp 22; Temp 100.6(O); Pulse Ox 95% on R/A; Pain 0/10; srm 16:05 Pulse Ox 97% ; bcj 18:00 BP 128 / 67 (auto/); bcj 18:00 Pulse 120 MON; Pulse Ox 98% ; bcj 18:15 BP 128 / 72 (auto/); ko2 18:15 Pulse 118 MON; Pulse Ox 98% ; ko2 18:30 BP 128 / 62 (auto/); ko2 18:30 Pulse 121 MON; Pulse Ox 97% ; ko2 18:45 BP 121 / 67 (auto/); ko2 18:45 Pulse 122 MON; Pulse Ox 97% ; ko2 19:00 BP 117 / 59 (auto/); ko2 19:00 Pulse 119 MON; Pulse Ox 97% ; ko2 19:15 BP 123 / 66 (auto/); ko2 19:15 Pulse 119 MON; Pulse Ox 98% ; ko2 19:30 BP 112 / 65 (auto/); ko2 19:30 Pulse 124 MON; Pulse Ox 98% ; ko2 19:45 BP 109 / 70 (auto/); ko2 19:45 Pulse 119 MON; Pulse Ox 98% ; ko2 20:00 BP 110 / 68 (auto/); ko2 20:00 Pulse 118 MON; Pulse Ox 98% ; ko2 12:26 Body Mass Index 56.64 (149.69 kg, 162.56 cm) gr2 MDM: 12:57 -Blood Culture (Adults Only), peripheral from different site, or from device/port/PICC ef1 etc. if present ordered. 12:57 Strep Screen, Nursing ordered. ef1 12:57 Obtain sample by nasopharyngeal swab ordered. ef1 12:57 IV Saline Lock ordered. ef1 12:58 CBC with Diff Ordered. EDMS 12:58 Complete Comphrensive Metabolic Ordered. EDMS 12:58 Lactic Acid (Carbaajl tube on ice) Ordered. EDMS 12:58 Monoscreen Ordered. EDMS 12:58 -Blood Culture Ordered. EDMS 12:58 -Influenza A&B Rapid Antigen - Nose Ordered. EDMS 12:58 Chest, 2 View (pa\E\lat) Ordered. EDMS 13:02 -Blood Culture (Adults Only), peripheral from different site, or from device/port/PICC sew etc. if present complete. 13:03 BLOOD CULTURES Ordered. EDMS 13:22 Albuterol-Ipratropium 1 neb Nebulizer every 20 minutes x3 ordered. ef1 13:22 Call Respiratory ordered. ef1 13:34 Call Respiratory complete. sew 13:39 [place] [place] was scanned into [employer] and attached to record. jp5 13:39 Financial registration complete. jp5 13:40 AMYLASE Ordered. EDMS 13:40 LIPASE Ordered. EDMS 14:20 -Influenza A&B Rapid Antigen - Nose Reviewed. ef1 14:36 PICC LINE INSERTION W/SITERITE Ordered. EDMS 14:38 URINE CULTURE Ordered. EDMS 14:40 Admission / Observation Status ordered. EDMS 14:40 CT ABD & PELVIS WITH CONTRAST Ordered. EDMS 14:40 REGULAR DIET ordered. EDMS 14:41 URINALYSIS Ordered. EDMS 14:45 Acetaminophen Tablet 975 mg PO once ordered. ef1 14:45 Ibuprofen 800 mg PO once ordered. ef1 14:47 ERYTHROCYTE SEDIMENTATION RATE Ordered. EDMS 14:47 C REACTIVE PROTEIN QUANTITATIV Ordered. EDMS 14:49 Oxygen at 2L/min via NC ordered. ef1 14:56 BED REQUEST+ADM ordered. EDMS 15:59 GASTROINTESTINAL (GI) PANEL Ordered. EDMS 15:59 MRSA SCREEN Ordered. EDMS 16:11 Ciprofloxacin 400 mg IVPB at 200 mL/hr once over 60 mins ordered. srm 16:23 ERYTHROPOIETIN SERUM Ordered. EDMS 16:23 JAK2 MUTATIONS FOR PATH Ordered. EDMS 17:01 CBC with Diff Reviewed. ef1 17:01 Complete Comphrensive Metabolic Reviewed. ef1 17:01 Lactic Acid (Carbajal tube on ice) Reviewed. ef1 17:01 LIPASE Reviewed. ef1 17:01 URINALYSIS Reviewed. ef1 17:01 ERYTHROCYTE SEDIMENTATION RATE Reviewed. ef1 17:01 C REACTIVE PROTEIN QUANTITATIV Reviewed. ef1 17:01 Monoscreen Reviewed. ef1 17:01 AMYLASE Reviewed. ef1 17:01 Chest, 2 View (pa\E\lat) Reviewed. ef1 17:01 CT ABD & PELVIS WITH CONTRAST Reviewed. ef1 17:14 Chest, 1 view Ordered. EDMS 18:09 NS 0.9% 1000 ml IV at bolus once ordered. kcs 18:09 NS 0.9% 1000 ml IV at bolus once ordered. kcs 18:14 Written Provider Order was scanned into [employer] and attached to record. deg 19:31 LACTIC ACID LEVEL, LACTATE Ordered. EDMS 19:31 LACTIC ACID LEVEL, LACTATE Ordered. EDMS 19:32 BASIC METABOLIC PROFILE Ordered. EDMS 19:32 CBC WITH DIFFERENTIAL Ordered. EDMS 10/09 09:43 T-Sheet-- Draft Copy was scanned into [employer] and attached to record. gb Administered Medications: 10/08 14:01 Drug: Albuterol-Ipratropium 1 neb [ipratropium-albuterol 0.5 mg-3 mg(2.5 mg base)/3 mL cs15 nebulization soln (1 neb)] Route: Nebulizer; 14:20 Drug: Albuterol-Ipratropium 1 neb [ipratropium-albuterol 0.5 mg-3 mg(2.5 mg base)/3 mL cs15 nebulization soln (1 neb)] Route: Nebulizer; 14:34 Drug: Albuterol-Ipratropium 1 neb [ipratropium-albuterol 0.5 mg-3 mg(2.5 mg base)/3 mL cs15 nebulization soln (1 neb)] Route: Nebulizer; 14:45 CANCELLED (Other Intervention Used): Ondansetron 4 mg IVP once ef1 14:46 CANCELLED (Other Intervention Used): ketorolac 30 mg IVP once ef1 15:01 Drug: Acetaminophen 975 mg [acetaminophen 325 mg tablet (3 tabs)] Route: PO; dls 15:01 Drug: Ibuprofen 800 mg [ibuprofen 800 mg tablet (1 tabs)] Route: PO; dls 16:10 CANCELLED (Other Intervention Used): NS 0.9% 1000 ml IV at bolus once srm 16:11 CANCELLED (Other Intervention Used): cefTRIAXone 1 grams IVPB once over 30 mins; dilute srm in 50mL of NS or D5W 16:17 Drug: Ciprofloxacin 400 mg [ciprofloxacin 400 mg/200 mL in 5 % dextrose intravenous srm piggyback] Route: IVPB; Rate: 200 mL/hr; Infused Over: 60 mins; Site: right antecubital; 16:19 CANCELLED (Other Intervention Used): NS 0.9% 1000 ml IV at bolus once srm 18:11 Drug: NS 0.9% 1000 ml [sodium chloride 0.9 % intravenous solution] Route: IV; Rate: bcj bolus; Site: Implantable Access Device; 18:11 Drug: NS 0.9% 1000 ml [sodium chloride 0.9 % intravenous solution] Route: IV; Rate: bcj bolus; Site: Implantable Access Device; Signatures: Dispatcher [employer] EDMS Olive Davis, Aaliyah Egan RN, Brine Room Laborer Unit deg Ernestina Acosta RN RN srm KrissyBettinaa, Reg Reg gb Ya Murrell, PATorrey PATorrey ef1 Chrissie Lynch Emily,Teri Wan RN, RN RN ko2 Dori Jessica jp5 Alhaji Londono RN RN sa Johnson, Bruce RN bcj Scott, Debra RN dls Shelton, Caleb RT cs15 The chart was reviewed and I authenticate all verbal orders and agree with the evaluation and treatment provided.Corrections: (The following items were deleted from the chart) 13:39 13:33 AMYLASE+LAB ordered. EDMS EDMS 13:39 13:33 LIPASE+LAB ordered. EDMS EDMS 14:45 13:30 Ondansetron 4 mg IVP once ordered. ef1 ef1 14:46 12:57 ketorolac 30 mg IVP once ordered. ef1 ef1 14:46 14:41 ERYTHROCYTE SEDIMENTATION RATE ordered. EDMS EDMS 14:46 14:41 C REACTIVE PROTEIN QUANTITATIV ordered. EDMS EDMS 14:47 14:41 LIPASE ordered. EDMS EDMS 14:47 14:41 AMYLASE ordered. EDMS EDMS 15:28 14:38 BLOOD CULTURES ordered. EDMS EDMS 15:59 15:59 GASTROINTESTINAL (GI) PANEL ordered. EDMS EDMS 15:59 15:59 GASTROINTESTINAL (GI) PANEL ordered. EDMS EDMS 16:10 13:30 NS 0.9% 1000 ml IV at bolus once ordered. ef1 srm 16:11 13:30 cefTRIAXone 1 grams IVPB once over 30 mins; dilute in 50mL of NS or D5W ordered. srm ef1 16:19 12:57 NS 0.9% 1000 ml IV at bolus once ordered. ef1 srm Attachments: 13:39 [place] [place] jp5 18:14 Written Provider Order deg 10/09 09:43 T-Sheet-- Draft Copy gb Chart Complete MTDD
[2016-10-18 11:10] LABS: JAK2 MUTATIONS FOR PATH SENDOU See Pathology Report
== END 2016-10-09 17:53 | disposition home or self-care (01) | DRG 872 ==
LOC: M ED 12:24 → M ED INP 14:35 → M PCU 20:21
PROVIDERS: ADMIT General Practice; ATTEND Family Medicine
PROC: 05H633Z Insertion of Infusion Device into Left Subclavian Vein, Percutaneous Approach (ICD-10-PCS; principal; 2016-10-08)
DX: A41.9 Sepsis, unspecified organism (principal); A09 Infectious gastroenteritis and colitis, unspecified; Z68.43 Body mass index [BMI] 50.0-59.9, adult; E87.2 Acidosis; D75.1 Secondary polycythemia; E66.01 Morbid (severe) obesity due to excess calories; R22.41 Localized swelling, mass and lump, right lower limb; J30.9 Allergic rhinitis, unspecified; F17.210 Nicotine dependence, cigarettes, uncomplicated; G47.33 Obstructive sleep apnea (adult) (pediatric); R19.7 Diarrhea, unspecified; Z79.899 Other long term (current) drug therapy

== ENCOUNTER 2017-01-28 16:47 | Emergency (ER) | payer MEDICARE, MEDICAID ==
[~2017-01-28] VITALS: Ht 162.6 cm; Wt 149.7 kg
[2017-01-28 16:47] VITALS: BP 183/98
[~2017-01-28 16:47] MED LIST: ACET50TAOT PO; ALEV220T26 PO; CIPR500T19 PO; CLAR1TAB2 PO; DIPH25CA PO; FLON1SPR
[2017-01-28] MEDS ORDERED: KEFL500C7 PO (18:53)
[2017-01-28] MEDS ORDERED: IBUPROFEN 800 MG TAB PO ONE (19:00)
[2017-01-28] MEDS ORDERED: CEPHALEXIN 500 MG CAP PO ONE (19:00)
== END 2017-01-28 19:03 | disposition home or self-care (01) ==
LOC: M ED 18:30
DX: L03.031 Cellulitis of right toe (principal); L60.0 Ingrowing nail; I10 Essential (primary) hypertension; G47.33 Obstructive sleep apnea (adult) (pediatric); Z79.899 Other long term (current) drug therapy; Z91.040 Latex allergy status; Z91.030 Bee allergy status; Z91.018 Allergy to other foods

== ENCOUNTER 2017-03-12 19:16 | Inpatient (IN) | payer MEDICARE, MEDICAID ==
[~2017-03-12] VITALS: Ht 162.6 cm; Wt 155.7 kg
[~2017-03-12 19:16] MED LIST changes: +KEFL500C7 PO
[2017-03-12] MEDS ORDERED: thera flu PO (19:26)
[2017-03-12] MEDS ORDERED: ONDANSETRON 4MG/2ML VIAL (J2405) IV ONE (20:15)
[2017-03-12] MEDS ORDERED: KETOROLAC 30 MG/ML VIAL (J1885) IV ONE (20:15)
[2017-03-12 20:44] LABS: MEAN CORPUSCULAR HEMOGLOBIN 30.7 pg (27.0-33.0); MEAN CORPUSCULAR VOLUME 90.3 fl (80.0-96.0); RED CELL DISTRIBUTION WIDTH 12.9 % (11.5-14.5); WHITE BLOOD COUNT 25.4 K/mm3 (4.0-10.0)
[2017-03-12 20:53] LABS: ANION GAP 8 MEQ/L (8-16); BLOOD UREA NITROGEN 12 MG/DL (7-18); CARBON DIOXIDE LEVEL 25 MEQ/L (21-32); CHLORIDE LEVEL 105 MEQ/L (98-107); CREATININE FOR GFR 1.12 MG/DL (0.70-1.30); GLOMERULAR FILTRATION RATE > 60.0 (>60); GLUCOSE, FASTING 115 MG/DL (70-105); POTASSIUM SERUM 4.1 MEQ/L (3.5-5.1); SODIUM LEVEL 138 MEQ/L (136-145)
[2017-03-12 21:34] LABS: ALBUMIN/GLOBULIN RATIO 1.03 (1.00-1.93); ALKALINE PHOSPHATASE 107 U/L (45-117); ALT/SGPT 51 U/L (12-78); AST/SGOT 20 U/L (15-37); BILIRUBIN,DIRECT 0.1 MG/DL (0.0-0.2); BILIRUBIN,TOTAL 0.8 MG/DL (0.2-1.0); TOTAL PROTEIN 7.9 GM/DL (6.4-8.2)
--- NOTE | 2017-03-12 23:00 | REPUSA ---
CT of the abdomen and pelvis without contrast Clinical statement: Pain. Technique: Multiple axial CT images were obtained from the base of the lungs to the floor of the pelv is utilizing 5 mm axial slices without administration of contrast. Coronal and sagittal reconstructio ns were also obtained. Comparison: None. Findings: Chest: The visualized lung bases are clear. Abdomen: The kidneys are normal in size bilaterally. There is no evidence of hydronephrosis or nephro lithiasis. The liver, spleen, pancreas, gallbladder and adrenal glands are unremarkable. The aorta de monstrates normal caliber and contour. There is no abdominal lymphadenopathy or ascites. Pelvis: The bowel is unremarkable, with no obstructive or inflammatory changes. The appendix is heather l. The urinary bladder is within normal limits. There is no pelvic lymphadenopathy or ascites. The ot her pelvic structures appear unremarkable. Bones: There are no suspicious osseous abnormalities seen. Impression: Unremarkable CT examination of the abdomen and pelvis.
[2017-03-13] MEDS ORDERED: BISACODYL 10 MG SUPP PR PRN (00:30)
[2017-03-13] MEDS ORDERED: [UNRECOGNIZED DRUG - CODE] PO (00:36)
[2017-03-13 01:14] VITALS: BP 138/92
[2017-03-13] MEDS: ACETAMINOPHEN 500 MG TAB PO PRN ×3 (01:20→17:48)
[2017-03-13] MEDS: ONDANSETRON 4MG/2ML VIAL (J2405) IV PRN (01:25)
[2017-03-13] MEDS ORDERED: FLUTICASONE PROP 0.05% NASAL SPRAY 16 GM (FLONASE) PRN (01:30)
[2017-03-13] MEDS ORDERED: LORATADINE 10 MG TAB PO PRN (01:30)
[2017-03-13] MEDS: SENOKOT S TAB PO SCH ×3 (03:03→19:53)
[2017-03-13] MEDS: NS 1,000 ML IV SCH ×3 (03:23→17:47)
[2017-03-13 06:00] VITALS: BP 122/58
--- NOTE | 2017-03-13 07:39 | REP ---
PA and lateral chest: Comparison is to P A R chest of 10/08/2016. The lung caro are clear. The cardiac size is normal The eagle, mediastinum, and bony thorax are unremarkable. Impression: Negative PA and lateral chest. There is no interval change. Signed by Christian Galicia MD 03/13/2017 07:31 A
[2017-03-13] MEDS: ENOXAPARIN 40 MG/0.4 ML SYRINGE (J1650) SC SCH (08:38)
[2017-03-13] MEDS: IBUPROFEN 800 MG TAB PO PRN ×2 (08:39→20:11)
[2017-03-13] MEDS ORDERED: ENOXAPARIN 40 MG/0.4 ML SYRINGE (J1650) SC SCH (09:00)
--- NOTE | 2017-03-13 10:13 | IPNPDOC ---
Subjective Date Seen The patient was seen on 03/13/17. Subjective Chief Complaint/HPI The patient is a 26-year-old male admitted with a reason for visit of Viral Illness. Events since last encounter c/o headache. No CP, SOB. Reports nausea. No vomiting. No diarrhea. Right leg developed erythema overnight. No pain Constitutional: Reports: Fever, Denies: Chills Pulmonary: Reports: Cough, Denies: Dyspnea Cardiovascular: Denies: Chest Pain, Palpitations, Orthopnea Gastrointestinal: Reports: Nausea, Denies: Vomiting, Abdominal Pain, Diarrhea, Constipation Musculoskeletal: Denies: Leg Pain Objective Physical Examination General Exam: Positive: Alert, No Acute Distress Chest Exam: Positive: Clear to auscultation, Normal air movement Heart Exam: Positive: Rate Normal, Negative: Regular Rhythm Abdomen Exam: Positive: Normal bowel sounds, Soft, Negative: Tenderness Extremity Exam: Positive: Other (Right isabel with flat, erythematous ring around to calf. Warm. non-tender. No ulceration), Negative: Edema Assessment /Plan Problems (1) Rhinosinusitis Status: Acute Response to Treatment: Stable Problem Text: Supportive care with Tylenol/Ibuprofen for headache, zofran for nausea, IVF REsp status stable (2) Swelling of extremity, right Status: Acute Problem Text: US pending, but looks more like cellulitis than DVT. Start Rocephin Plan/VTE VTE Prophylaxis Ordered?: Yes (Lovenox) VS, I&O, 24H, Fishbone Vital Signs/I&O Vital Signs Date Time Temp Pulse Resp B/P (MAP) Pulse Ox O2 Delivery O2 Flow Rate FiO2 03/13/17 06:00 97.7 128 17 122/58 (79) 100 Room Air I&O- Last 24 Hours up to 6 AM 03/13/17 06:00 Intake Total 0 ml Output Total 0 ml Balance 0 ml Laboratory Data 24H LABS Laboratory Tests 2 03/12/17 20:19: Anion Gap 8, Glomerular Filtration Rate > 60.0, Blood Urea Nitrogen 12, Creatinine 1.12, Sodium Level 138, Potassium Level 4.1, Chloride Level 105, Carbon Dioxide Level 25, Calcium Level 9.0, Aspartate Amino Transf (AST/SGOT) 20 , Alanine Aminotransferase (ALT/SGPT) 51, Alkaline Phosphatase 107, Total Bilirubin 0.8, Direct Bilirubin 0.1, Total Protein 7.9, Albumin 4.0, Albumin/ Globulin Ratio 1.03, Lipase 82 03/12/17 22:53: Urine Appearance HAZY, Urine Color YELLOW, Urine pH 5.0, Urine Specific Ackerly 1.028, Urine Protein NEGATIVE, Urine Glucose (UA) NEGATIVE, Urine Ketones NEGATIVE, Urine Urobilinogen 0.2, Urine Bilirubin NEGATIVE, Urine Leukocyte Esterase NEGATIVE, Urine Blood NEGATIVE, Urine Nitrite NEGATIVE, Urine WBC (Auto ) 3, Urine RBC (Auto) 2, Urine Hyaline Casts (Auto) 0, Urine Bacteria (Auto) NEGATIVE, Urine Squamous Epithelial Cells 0, Urine Amorphous Sediment SMALLH, Urine Mucus (Auto) SMALL, Urine Sperm (Auto) 03/13/17 01:55: Lactic Acid Level 2.8*H 03/13/17 05:53: Lactic Acid Followup at 4 Hours 1.4 CBC/BMP Laboratory Tests 03/12/17 20:19 Red Blood Count 5.37, Mean Corpuscular Volume 90.3, Mean Corpuscular Hemoglobin 30.7, Mean Corpuscular Hemoglobin Concent 34.0, Red Cell Distribution Width 12.9 , Calcium Level 9.0 Microbiology Microbiology 03/13/17 Blood Culture, Received Pending 03/13/17 Blood Culture, Received Pending 03/13/17 Respiratory Virus Panel (PCR) ([facility]) - Final, Complete Human Rhinovirus/Enterovirus THANIA ANTOINE PA-C Mar 13, 2017 10:13
[2017-03-13] MEDS ORDERED: cefTRIAXone SOD 1 GM in D5W MINI-BAG PLUS 50 ML IV SCH (11:00)
--- NOTE | 2017-03-13 13:40 | REP ---
DEEP VENOUS ULTRASONOGRAPHY BILATERAL THIGH, RULE OUT DVT: REASON: Leg pain. COMPARISON: 10/09/2016, which was normal other than mild groin lymphadenopathy on the right. TECHNIQUE: Multiple ultrasonographic images of the deep venous structures of the thighs were obtained from the common femoral vein to the popliteal vein along with Doppler interrogation and color flow Doppler images. FINDINGS: There is no abnormal echogenic material seen within any of the visualized deep venous structures that would suggest acute thrombosis. Coaptation is unremarkable throughout. Doppler interrogation shows an expected response to respiratory variability and augmentation. The color flow images show what appears to be a normal vascular pattern throughout. IMPRESSION: There is no ultrasonographic evidence of deep venous thrombosis involving any of the visualized deep venous structures of the bilateral thigh, as described above. There is no significant change in appearance of the right groin lymphadenopathy. Signed by Chao Btaeman DO 03/13/2017 01:47 P
[2017-03-13 14:00] VITALS: BP 130/70
--- NOTE | 2017-03-13 16:09 | HPE ---
DATE OF ADMISSION: 03/12/2017 PRIMARY CARE PROVIDER: Dr. Siva Meehan CHIEF COMPLAINT: Fever from yesterday morning with one episode of diarrhea and three episodes of vomiting. PAST MEDICAL HISTORY: 1. Morbid obesity. 2. Obstructive sleep apnea (PETEY) on continuous positive airway pressure (CPAP), however, does not use it. 3. History of polycythemia, JAK2 negative. 4. Melanoma on the posterior back removed three years ago. 5. Seasonal allergies. HISTORY OF PRESENT ILLNESS: This is a 26-year-old male who has been in his usual state of health until yesterday morning when he developed fever with chills. He also had one episode of diarrhea and three episodes of vomiting. He was feeling extremely weak and tired, so he came to the emergency room for evaluation. The patient's mother has been sick with cold-like symptoms for the past two weeks. In the emergency department (ED), the patient was found to have elevated white blood cell count of 25,000, so the patient is being admitted to the hospital for observation. The patient denied any cough or phlegm. Denied any nasal congestion or discharge. Denies any abdominal pain. The patient does have a rash on the right isabel which he says is due to heat rash. There is no ulceration anywhere and there are no signs of cellulitis. The patient is being admitted for high white count, possibly viral illness. PAST SURGICAL HISTORY: 1. Tonsillectomy. 2. Melanoma surgery of the skin. HOME MEDICATIONS: - Tylenol 1000 mg by mouth as needed for pain - Flonase spray one spray in both nostrils twice a day as needed - Claritin 10 mg every two days. - naproxen 220 mg by mouth twice a day as needed for pain - Theraflu for severe cough and cold every four hours as needed ALLERGIES: BEE VENOM, CINNAMON, LATEX, and SUNLIGHT. SOCIAL HISTORY: The patient smokes. He uses alcohol occasionally. He does not use any recreational drugs. FAMILY HISTORY: Nothing significant. REVIEW OF SYSTEMS: All 10-point review of systems are negative except those mentioned in the history of present illness (HPI). PHYSICAL EXAMINATION: VITAL SIGNS: Temperature 103.2, pulse 127, respiratory rate 18, blood pressure 122/59, pulse oximetry 97% on room air. Repeat vital signs show that temperature went down to 100.8 and a pulse of 118. GENERAL: The patient is awake, alert, and oriented times three, laying down in bed, in no acute distress. HEENT: Normocephalic, atraumatic. Moist mucous membranes. Anicteric eyes. CHEST: Clear to auscultation, overall very poor breath sounds. CARDIOVASCULAR: S1, S2, regular. No rub, murmur, or gallop. There is tachycardia present. ABDOMEN: Obese, nontender. Bowel sounds present. EXTREMITIES: No edema. There is a maculopapular erythematous rash surrounding the middle of the isabel of the right leg. LABORATORY DATA: WBC 25.4, hemoglobin 16.5, platelets 229. Sodium 138, potassium 4.1, chloride 105, bicarbonate 25, BUN 12, creatinine 1.1, glucose 115, calcium 9. Liver function tests are normal. Lipase is 82. Abdominal and pelvis CT unremarkable. Chest x-ray does not show any acute cardiopulmonary disease. ASSESSMENT AND PLAN: This is a 26-year-old male admitted for fever and high white cough, possibly due to viral illness. PLAN: 1. Fever and elevated white count, possibly due to viral illness. We will give the patient some IV fluids, check a lactate level, give Zofran for vomiting, and Tylenol for fever. 2. Morbid obesity with obstructive sleep apnea (PETEY). The patient does not use continuous positive airway pressure (CPAP) at home. 3. Rash on the leg. We will continue to monitor. If there is inflammation or signs of cellulitis, we will consider adding antibiotics. Cultures have been sent. If they become positive, we will start antibiotics. Will get dvt scan of the leg 4. Seasonal allergies. We will continue with Flonase and antihistamine. 5. Deep vein thrombosis (DVT) prophylaxis has been ordered. [facility]
[2017-03-13 22:00] VITALS: BP_SYST 138; BP_SYST 153; BP_DIAS 67; BP_DIAS 87
[2017-03-14] MEDS: ONDANSETRON 4MG/2ML VIAL (J2405) IV PRN (02:25)
[2017-03-14] MEDS: NS 1,000 ML IV SCH (02:25)
[2017-03-14] MEDS: ACETAMINOPHEN 500 MG TAB PO PRN ×2 (05:36→11:42)
[2017-03-14 06:00] VITALS: BP 138/87
[2017-03-14] MEDS: SENOKOT S TAB PO SCH (07:44)
[2017-03-14 08:14] LABS: ANION GAP 9 MEQ/L (8-16); BLOOD UREA NITROGEN 9 MG/DL (7-18); CALCIUM LEVEL 7.8 MG/DL (8.5-10.1); CARBON DIOXIDE LEVEL 24 MEQ/L (21-32); CHLORIDE LEVEL 108 MEQ/L (98-107); CREATININE FOR GFR 0.81 MG/DL (0.70-1.30); GLOMERULAR FILTRATION RATE > 60.0 (>60); GLUCOSE, FASTING 91 MG/DL (70-105); POTASSIUM SERUM 3.8 MEQ/L (3.5-5.1); SODIUM LEVEL 141 MEQ/L (136-145)
[2017-03-14 08:22] LABS: BASO % 0.3 % (0.0-1.0); EOS # 0.2 K/mm3 (0.0-0.50); EOS % 1.2 % (0.0-3.0); LARGE UNSTAINED CELL # 0.1 K/mm3 (0.0-0.4); LARGE UNSTAINED CELL % 0.5 % (0.0-4.0); LYMPH # 0.9 K/mm3 (1.5-6.5); LYMPH % 5.2 % (24.0-44.0); MEAN CORPUSCULAR HEMOGLOBIN 29.6 pg (27.0-33.0); MEAN CORPUSCULAR HGB CONC 33.2 g/dl (32.0-36.5); MEAN CORPUSCULAR VOLUME 89.3 fl (80.0-96.0); MONO # 0.5 K/mm3 (0.0-0.8); MONO % 3.3 % (0.0-5.0); NEUTROPHILS # 13.2 K/mm3 (1.8-7.7); NEUTROPHILS % 89.4 % (36.0-66.0); PLATELET COUNT, AUTOMATED 157 k/mm3 (150-450); RED CELL DISTRIBUTION WIDTH 13.4 % (11.5-14.5); WHITE BLOOD COUNT 14.7 K/mm3 (4.0-10.0)
--- NOTE | 2017-03-14 08:32 | IPNPDOC ---
Subjective Date Seen The patient was seen on 03/14/17. Subjective Chief Complaint/HPI The patient is a 26-year-old male admitted with a reason for visit of Viral Illness. Events since last encounter No further headache, n/v. Feels much better. Had left proximal right arm salin lock infiltrate. Now with ecchymosis. No pain Constitutional: Denies: Chills, Fever Pulmonary: Denies: Dyspnea, Cough Cardiovascular: Denies: Chest Pain, Palpitations, Orthopnea Gastrointestinal: Denies: Nausea, Vomiting, Abdominal Pain, Diarrhea, Constipation Objective Physical Examination General Exam: Positive: Alert, No Acute Distress Chest Exam: Positive: Clear to auscultation, Normal air movement Heart Exam: Positive: Rate Normal, Negative: Regular Rhythm Abdomen Exam: Positive: Normal bowel sounds, Soft, Negative: Tenderness Extremity Exam: Positive: Other (Right isabel with flat, erythematous ring around to calf - area has extended proximally today and looks worse. Warm. non- tender. No ulceration), Negative: Edema Assessment /Plan Problems (1) Cellulitis and abscess of leg Status: Acute Response to Treatment: Worse Problem Text: US negative for DVT Right leg cellulitis seems to have progressed despite Rocephin. Swithc to Bactrim for better MRSA coverage in patient who has apparently had similar infections in past as well as antibiotics for toe infections post toenail procedures. WBC has improved and afebrile now (2) Rhinosinusitis Status: Acute Response to Treatment: Stable, Improving Problem Text: Supportive care with Tylenol/Ibuprofen for headache, zofran for nausea, d/C IVF today REsp status stable Plan/VTE VTE Prophylaxis Ordered?: Yes (Lovenox) [facility] Vital Signs Date Time Temp Pulse Resp B/P (MAP) Pulse Ox O2 Delivery O2 Flow Rate FiO2 03/14/17 06:00 99.6 80 20 138/87 (104) 96 03/13/17 20:30 Room Air I&O- Last 24 Hours up to 6 AM 03/14/17 06:00 Intake Total 4790 ml Output Total 1300 ml Balance 3490 ml Laboratory Data 24H LABS Laboratory Tests 2 03/14/17 07:30: White Blood Count 14.7H, Red Blood Count 4.75, Hemoglobin 14.1#, Hematocrit 42.4 , Mean Corpuscular Volume 89.3, Mean Corpuscular Hemoglobin 29.6, Mean Corpuscular Hemoglobin Concent 33.2, Red Cell Distribution Width 13.4, Platelet Count 157, Neutrophils (%) (Auto) 89.4H, Lymphocytes (%) (Auto) 5.2L, Monocytes (%) (Auto) 3.3, Eosinophils (%) (Auto) 1.2, Basophils (%) (Auto) 0.3, Neutrophils # (Auto) 13.2H, Lymphocytes # (Auto) 0.9L, Monocytes # (Auto) 0.5, Eosinophils # (Auto) 0.2, Basophils # (Auto) 0.0, Large Unclassified Cells % 0.5 , Large Unclassified Cells # 0.1, Anion Gap 9, Glomerular Filtration Rate > 60.0 , Blood Urea Nitrogen 9, Creatinine 0.81, Sodium Level 141, Potassium Level 3.8 , Chloride Level 108H, Carbon Dioxide Level 24, Calcium Level 7.8L CBC/BMP Laboratory Tests 03/14/17 07:30 Red Blood Count 4.75, Mean Corpuscular Volume 89.3, Mean Corpuscular Hemoglobin 29.6, Mean Corpuscular Hemoglobin Concent 33.2, Red Cell Distribution Width 13.4 , Neutrophils (%) (Auto) 89.4 H, Lymphocytes (%) (Auto) 5.2 L, Monocytes (%) ( Auto) 3.3, Eosinophils (%) (Auto) 1.2, Basophils (%) (Auto) 0.3, Neutrophils # ( Auto) 13.2 H, Lymphocytes # (Auto) 0.9 L, Monocytes # (Auto) 0.5, Eosinophils # (Auto) 0.2, Basophils # (Auto) 0.0, Calcium Level 7.8 L Microbiology Microbiology 03/13/17 Blood Culture - Preliminary, Resulted No growth after 24 hours . All specim... 03/13/17 Blood Culture - Preliminary, Resulted No growth after 24 hours . All specim... 03/13/17 Respiratory Virus Panel (PCR) ([facility]) - Final, Complete Human Rhinovirus/Enterovirus THANIA ANTOINE PA-C Mar 14, 2017 08:32
[2017-03-14] MEDS: ENOXAPARIN 40 MG/0.4 ML SYRINGE (J1650) SC SCH (08:55)
[2017-03-14] MEDS ORDERED: BACTRIM 160MG/800MG DS TAB PO SCH (09:00)
[2017-03-14 14:00] VITALS: BP 141/79
[2017-03-14] MEDS ORDERED: SMZ-800T PO (15:03)
--- NOTE | 2017-03-14 15:24 | DSES ---
DATE OF ADMISSION: 03/14/2017 DATE OF DISCHARGE: 03/14/2017 PRINCIPAL DIAGNOSIS: Cellulitis, right lower leg. SECONDARY DIAGNOSES: 1. Sepsis secondary to infection. 2. Upper respiratory infection (URI) with rhinovirus/enterovirus. HISTORY: The patient was admitted essentially because his lactate level was high. He had had a fever, diarrhea, and vomiting. He presented to the emergency room. He had some right lower extremity redness. He says that happens whenever he has a fever. He has a history of morbid obesity, obstructive sleep apnea (PETEY) on continuous positive airway pressure (CPAP), polycythemia, JAK2 negative. HOSPITAL COURSE: He was admitted to a medical bed. His lactate was high and he got admitted. It came down with hydration. The rhinovirus/enterovirus was isolated on a viral panel. His right lower leg became red. He says this happens whenever he has a fever. An ultrasound failed to show any deep vein thrombosis (DVT). He was placed on Rocephin and failed to respond to that. He was placed in Bactrim which usually works for him. When I went to round on him today, he was insisting on discharge. He says his leg always gets red when he has a fever. He understands he is on treatment for cellulitis but he is having no fever. His white count is down and he says he feels back to normal. He assures me that he will return should his condition worsen. PHYSICAL EXAMINATION: As summarized in today's note by MOLLY Donis. LABORATORY DATA: White count is down to 14.7. DISPOSITION: The patient is discharged home improved in stable condition. He will followup with Dr. Meehan on 03/21/2017 which he already has scheduled. He will be discharged on the same medications that he was taking prior to admission with the exception of the addition of Bactrim DS tablets one twice a day for seven days. We stopped the Theraflu that he was taking at home. His activity is as tolerated. No-added salt diet. Followup with Dr. Meehan on 03/21/2017 and this is already scheduled.
[2017-03-14] MEDS ORDERED: BACT800T5 PO (15:30)
== END 2017-03-14 16:58 | disposition home or self-care (01) | DRG 872 ==
LOC: M ED 19:41 → M ED INP 19:42 → M MSPAV 03-13 01:14 → OBSVTOIN 03-14 10:24
PROVIDERS: ADMIT Internal Medicine Nephrology; ATTEND Family Medicine
DX: A41.9 Sepsis, unspecified organism (principal); L03.115 Cellulitis of right lower limb; B34.9 Viral infection, unspecified; E66.01 Morbid (severe) obesity due to excess calories; G47.33 Obstructive sleep apnea (adult) (pediatric); J00 Acute nasopharyngitis [common cold]; J30.2 Other seasonal allergic rhinitis; Z85.820 Personal history of malignant melanoma of skin; Z79.1 Long term (current) use of non-steroidal anti-inflammatories (NSAID); Z79.899 Other long term (current) drug therapy; Z91.19 Patient's noncompliance with other medical treatment and regimen; Z91.030 Bee allergy status; Z91.040 Latex allergy status; Z91.018 Allergy to other foods; Z91.048 Other nonmedicinal substance allergy status

== ENCOUNTER 2018-02-04 12:28 | Emergency (ER) | payer MEDICARE, MEDICAID, OTHER ==
[2018-02-04] MEDS: CLINDAMYCIN 900 MG in APPROPRIATE DILUENT 1 EA IV (13:30)
[2018-02-04 13:52] LABS: BASO # 0.1 10^3/uL (0.0-0.2); BASO % 0.2 % (0.0-1.0); HEMATOCRIT 46.2 % (42.0-52.0); HEMOGLOBIN 15.6 g/dl (13.5-17.5); IMMATURE GRANULOCYTE % 0.7 % (0-3.0); LYMPH # 0.7 10^3/uL (1.5-6.5); LYMPH % 2.8 % (24.0-44.0); MEAN CORPUSCULAR HEMOGLOBIN 29.5 pg (27.0-33.0); MEAN CORPUSCULAR HGB CONC 33.8 g/dl (32.0-36.5); MEAN CORPUSCULAR VOLUME 87.3 fl (80.0-96.0); MONO # 1.1 10^3/uL (0.0-0.8); MONO % 4.4 % (0.0-5.0); NEUTROPHILS # 22.4 10^3/uL (1.8-7.7); NEUTROPHILS % 91.9 % (36.0-66.0); PLATELET COUNT, AUTOMATED 206 10^3/uL (150-450); RED BLOOD COUNT 5.29 10^6/uL (4.30-6.10); RED CELL DISTRIBUTION WIDTH 13.4 % (11.5-14.5); WHITE BLOOD COUNT 24.3 10^3/uL (4.0-10.0)
[2018-02-04] MEDS: NS 1,000 ML IV (14:08)
[2018-02-04 14:09] LABS: ANION GAP 7 MEQ/L (8-16); BLOOD UREA NITROGEN 14 MG/DL (7-18); C REACTIVE PROTEIN QUANTITATIV 5.58 MG/DL (0.00-0.30); CARBON DIOXIDE LEVEL 23 MEQ/L (21-32); CHLORIDE LEVEL 106 MEQ/L (98-107); CREATININE FOR GFR 0.97 MG/DL (0.70-1.30); GLOMERULAR FILTRATION RATE > 60.0 (>60); GLUCOSE, FASTING 114 MG/DL (70-100); POTASSIUM SERUM 4.2 MEQ/L (3.5-5.1); SODIUM LEVEL 136 MEQ/L (136-145)
[2018-02-04] MEDS: KETOROLAC 30 MG/ML VIAL (J1885) IV (14:09)
[2018-02-04 14:35] LABS: ERYTHROCYTE SEDIMENTATION RATE 16 mm/hr (0-15)
== END 2018-02-04 15:28 | disposition home or self-care (01) ==
LOC: M ED 12:28
DX: L03.115 Cellulitis of right lower limb (principal); E66.01 Morbid (severe) obesity due to excess calories; R46.0 Very low level of personal hygiene; I10 Essential (primary) hypertension; G47.30 Sleep apnea, unspecified; F41.9 Anxiety disorder, unspecified; Z85.820 Personal history of malignant melanoma of skin; Z86.69 Personal history of other diseases of the nervous system and sense organs; Z87.891 Personal history of nicotine dependence; Z91.018 Allergy to other foods; Z91.030 Bee allergy status; Z91.040 Latex allergy status; Z91.048 Other nonmedicinal substance allergy status
CPT/HCPCS: J1885

== ENCOUNTER 2018-05-09 00:46 | Emergency (ER) | payer MEDICARE, MEDICAID ==
[2018-05-09] MEDS: CLINDAMYCIN 150 MG CAP PO (04:45)
== END 2018-05-09 04:58 | disposition home or self-care (01) ==
LOC: M ED 00:46
DX: L03.115 Cellulitis of right lower limb (principal); Z87.891 Personal history of nicotine dependence; Z91.018 Allergy to other foods; Z91.030 Bee allergy status; Z91.040 Latex allergy status; Z79.899 Other long term (current) drug therapy
CPT/HCPCS: 99283

== ENCOUNTER 2019-01-27 07:25 | Emergency (ER) | payer MEDICARE, MEDICAID ==
[~2019-01-27] VITALS: Ht 162.6 cm; Wt 147.5 kg
[~2019-01-27 07:25] MED LIST changes: +ACET500T15 PO; -ACET50TAOT PO; +BACT800T5 PO; +CLEO300C2 PO; +KEFL500C17 PO; -KEFL500C7 PO; +KETO10TAB PO; +SULF1TAB93 PO; +[UNRECOGNIZED DRUG - CODE] PO; +thera flu PO
[2019-01-27 07:26] VITALS: BP 141/94
[2019-01-27] MEDS ORDERED: FLUTISP (07:36)
[2019-01-27] MEDS ORDERED: BENA25CA4 PO (07:36)
[2019-01-27] MEDS ORDERED: CLIN150C14 PO (07:52)
[2019-01-27] MEDS ORDERED: CLINDAMYCIN 150 MG CAP PO ONE (08:00)
== END 2019-01-27 08:16 | disposition home or self-care (01) ==
LOC: M ED 07:25
DX: L03.115 Cellulitis of right lower limb (principal); Z85.820 Personal history of malignant melanoma of skin; R51 Headache; G43.909 Migraine, unspecified, not intractable, without status migrainosus; I10 Essential (primary) hypertension; Z87.01 Personal history of pneumonia (recurrent); G47.30 Sleep apnea, unspecified; F41.9 Anxiety disorder, unspecified; Z79.899 Other long term (current) drug therapy; Z91.030 Bee allergy status; Z91.040 Latex allergy status; Z91.018 Allergy to other foods

== ENCOUNTER → 2019-05-13 | Outpatient (REF) | payer OTHER ==
[~2019-05-13] MED LIST changes: +BENA25CA4 PO; +CLIN150C14 PO; -DIPH25CA PO; +DIPH25CA32 PO; +FLUTISP
[2019-05-13 14:25] LABS: ALBUMIN 3.7 GM/DL (3.2-5.2); ALT/SGPT 42 U/L (12-78); BILIRUBIN,TOTAL 0.4 MG/DL (0.2-1.0); BLOOD UREA NITROGEN 16 MG/DL (7-18); CALCIUM LEVEL 8.8 MG/DL (8.5-10.1); CARBON DIOXIDE LEVEL 25 MEQ/L (21-32); CHLORIDE LEVEL 107 MEQ/L (98-107); CHOLESTEROL LEVEL 160 MG/DL (<200); CHOLESTEROL RISK RATIO 3.902 (<5); CREATININE FOR GFR 0.94 MG/DL (0.70-1.30); GLOMERULAR FILTRATION RATE > 60.0 (>60); GLUCOSE, FASTING 96 MG/DL (70-100); HDL CHOLESTEROL 41 MG/DL (>40); LDL CHOLESTEROL 100 MG/DL (<100); NON-HDL-C 119 MG/DL; POTASSIUM SERUM 4.1 MEQ/L (3.5-5.1); SODIUM LEVEL 140 MEQ/L (136-145); THYROID STIMULATING HORMONE 0.994 uIU/ML (0.358-3.740); TOTAL PROTEIN 7.3 GM/DL (6.4-8.2); TRIGLYCERIDES LEVEL 94 MG/DL (<150)
== END ==
LOC: M SFHCPLAZ 10:52
PROVIDERS: ATTEND Family Medicine
DX: Z13.220 Encounter for screening for lipoid disorders (principal); Z13.1 Encounter for screening for diabetes mellitus; E66.01 Morbid (severe) obesity due to excess calories

== ENCOUNTER 2019-09-14 06:22 | Emergency (ER) | payer OTHER ==
[~2019-09-14] VITALS: Ht 162.6 cm; Wt 136.4 kg
[2019-09-14] MEDS ORDERED: CEPHALEXIN 500 MG CAP PO ONE (07:45)
[2019-09-14] MEDS ORDERED: ONDANSETRON 4 MG ORAL DISINTEGRATING TAB (Q0162 PER 1MG) PO ONE (07:45)
[2019-09-14 08:05] LABS: BASO # 0.1 10^3/uL (0.0-0.2); BASO % 0.2 % (0.0-1.0); HEMATOCRIT 49.4 % (42.0-52.0); HEMOGLOBIN 16.3 g/dl (13.5-17.5); LYMPH # 0.7 10^3/uL (1.5-5.0); LYMPH % 3.2 % (24.0-44.0); MEAN CORPUSCULAR HEMOGLOBIN 29.7 pg (27.0-33.0); MEAN CORPUSCULAR VOLUME 90.1 fl (80.0-96.0); MONO % 4.6 % (0.0-5.0); NEUTROPHILS # 18.8 10^3/uL (1.5-8.5); NEUTROPHILS % 91.3 % (36.0-66.0); PLATELET COUNT, AUTOMATED 199 10^3/uL (150-450); RED BLOOD COUNT 5.48 10^6/uL (4.30-6.10); WHITE BLOOD COUNT 20.6 10^3/uL (4.0-10.0)
[2019-09-14 08:30] LABS: ALBUMIN 3.6 GM/DL (3.2-5.2); BILIRUBIN,DIRECT 0.2 MG/DL (0.0-0.2); BILIRUBIN,TOTAL 0.7 MG/DL (0.2-1.0); TOTAL PROTEIN 7.5 GM/DL (6.4-8.2)
[2019-09-14] MEDS ORDERED: methylPREDNISolone INJ 125 MG/2 ML VIAL (J2930) IM ONE (09:00)
[2019-09-14] MEDS ORDERED: ACETAMINOPHEN 500 MG TAB PO ONE (09:00)
--- NOTE | 2019-09-14 10:02 | REP ---
Clinical: Right lower extremity pain and swelling . Technique: Carbajal scale and color Doppler evaluation using linear high frequency transducer. Findings: Ultrasound examination of the right lower extremity deep venous structures from the common femoral vein to the popliteal vein demonstrates normal compressibility flow and wave patterns in response to respiration and augmentation. There is no evidence for deep venous thrombosis. Impression: No evidence for deep venous thrombosis. Electronically Signed by Jose Shelley MD 09/14/2019 09:53 A
[2019-09-14] MEDS ORDERED: BACT800T5 PO (10:09)
[2019-09-14 10:12] VITALS: BP 141/93
== END 2019-09-14 10:29 | disposition home or self-care (01) ==
LOC: M ED 06:22
DX: L03.115 Cellulitis of right lower limb (principal); Z91.018 Allergy to other foods; Z91.030 Bee allergy status; Z91.040 Latex allergy status
CPT/HCPCS: 36415; 80047; 80076; 83690; 85025; 93971; 96372; 99284; J2930; Q0162

== ENCOUNTER 2019-10-13 07:38 | Emergency (ER) | payer MEDICARE, MEDICAID ==
[~2019-10-13] VITALS: Ht 162.6 cm; Wt 142.7 kg
[2019-10-13 09:14] LABS: BASO % 0.2 % (0.0-1.0); EOS % 0.2 % (0.0-3.0); HEMATOCRIT 54.1 % (42.0-52.0); HEMOGLOBIN 17.2 g/dl (13.5-17.5); LYMPH # 1.1 10^3/uL (1.5-5.0); LYMPH % 6.7 % (24.0-44.0); MEAN CORPUSCULAR HGB CONC 31.8 g/dl (32.0-36.5); MEAN CORPUSCULAR VOLUME 94.4 fl (80.0-96.0); MONO # 1.1 10^3/uL (0.0-0.8); MONO % 6.5 % (0.0-5.0); NEUTROPHILS # 14.5 10^3/uL (1.5-8.5); NEUTROPHILS % 86.2 % (36.0-66.0); PLATELET COUNT, AUTOMATED 163 10^3/uL (150-450); RED BLOOD COUNT 5.73 10^6/uL (4.30-6.10); WHITE BLOOD COUNT 16.8 10^3/uL (4.0-10.0)
[2019-10-13 09:31] LABS: ALBUMIN 4.1 GM/DL (3.2-5.2); ALT/SGPT 45 U/L (12-78); BILIRUBIN,TOTAL 0.7 MG/DL (0.2-1.0); BLOOD UREA NITROGEN 12 MG/DL (7-18); CARBON DIOXIDE LEVEL 21 MEQ/L (21-32); CHLORIDE LEVEL 111 MEQ/L (98-107); CREATININE FOR GFR 1.01 MG/DL (0.70-1.30); GLOMERULAR FILTRATION RATE > 60.0 (>60); GLUCOSE, FASTING 101 MG/DL (70-100); POTASSIUM SERUM 4.9 MEQ/L (3.5-5.1); SODIUM LEVEL 141 MEQ/L (136-145); TOTAL PROTEIN 8.1 GM/DL (6.4-8.2)
[2019-10-13] MEDS ORDERED: BACT800T5 PO (10:40)
[2019-10-13] MEDS ORDERED: BACTRIM 160MG/800MG DS TAB PO ONE (10:45)
[2019-10-13 11:02] VITALS: BP 140/90
== END 2019-10-13 11:22 | disposition home or self-care (01) ==
LOC: M ED 07:38
DX: L03.115 Cellulitis of right lower limb (principal); I10 Essential (primary) hypertension; Z91.030 Bee allergy status; Z91.040 Latex allergy status; Z91.048 Other nonmedicinal substance allergy status; Z91.018 Allergy to other foods; Z79.899 Other long term (current) drug therapy

== ENCOUNTER → 2019-10-19 | Outpatient (REF) | payer MEDICARE ==
[2019-10-19 13:39] LABS: HEMATOCRIT 47.8 % (42.0-52.0); HEMOGLOBIN 15.4 g/dl (13.5-17.5); MEAN CORPUSCULAR HEMOGLOBIN 29.2 pg (27.0-33.0); MEAN CORPUSCULAR HGB CONC 32.2 g/dl (32.0-36.5); MEAN CORPUSCULAR VOLUME 90.7 fl (80.0-96.0); PLATELET COUNT, AUTOMATED 260 10^3/uL (150-450); RED BLOOD COUNT 5.27 10^6/uL (4.30-6.10); WHITE BLOOD COUNT 10.5 10^3/uL (4.0-10.0)
== END ==
LOC: M SFHCPLAZ 11:08
PROVIDERS: ATTEND Family Medicine
DX: L03.115 Cellulitis of right lower limb (principal)
CPT/HCPCS: 36415; 85027; 86140; G0463

== ENCOUNTER 2020-12-06 20:21 | Emergency (ER) | payer MEDICARE, OTHER, MEDICAID ==
[~2020-12-06] VITALS: Ht 162.6 cm; Wt 150.2 kg
[~2020-12-06 20:21] MED LIST changes: -CLIN150C14 PO; +CLIN150C15 PO
[2020-12-06] MEDS ORDERED: ECON1CRE8 TOP (20:32)
[2020-12-06] MEDS ORDERED: CIPRODEX OTIC SUSP 7.5ML AS STA (22:12)
[2020-12-06] MEDS ORDERED: AUGMENTIN 875 MG TAB PO ONE (22:15)
[2020-12-06] MEDS ORDERED: ACETAMINOPHEN 500 MG TAB PO ONE (22:15)
[2020-12-06] MEDS ORDERED: IBUPROFEN 800 MG TAB PO ONE (22:15)
[2020-12-07] MEDS ORDERED: cloNIDine 0.1MG TABLET PO ONE
[2020-12-07 00:42] LABS: BASO # 0.1 10^3/uL (0.0-0.2); BASO % 0.3 % (0.0-1.0); EOS # 0.1 10^3/uL (0.0-0.5); EOS % 0.8 % (0.0-3.0); HEMATOCRIT 50.3 % (42.0-52.0); HEMOGLOBIN 16.6 g/dl (13.5-17.5); LYMPH # 0.9 10^3/uL (1.5-5.0); LYMPH % 5.2 % (24.0-44.0); MEAN CORPUSCULAR HEMOGLOBIN 29.3 pg (27.0-33.0); MEAN CORPUSCULAR VOLUME 88.7 fl (80.0-96.0); MONO # 1.1 10^3/uL (0.0-0.8); MONO % 5.8 % (2.0-8.0); NEUTROPHILS # 15.8 10^3/uL (1.5-8.5); NEUTROPHILS % 87.5 % (36.0-66.0); PLATELET COUNT, AUTOMATED 233 10^3/uL (150-450); RED BLOOD COUNT 5.67 10^6/uL (4.30-6.10)
[2020-12-07 01:12] LABS: CK-MB VALUE MASS < 1.0 NG/ML (<3.6); CPK CREATINE PHOSPHOKINASE 166 U/L (39-308); TROPONIN I < 0.02 NG/ML (< 0.10)
[2020-12-07] MEDS ORDERED: CVS500TA35 PO (01:15)
[2020-12-07] MEDS ORDERED: IBUP80TA PO (01:15)
[2020-12-07] MEDS ORDERED: MAGICMW SSP (01:15)
[2020-12-07] MEDS ORDERED: AUGM875T28 PO (01:15)
[2020-12-07] MEDS ORDERED: NORCO 5/325MG TABLET (BULK FOR ED) PO ONE (01:30)
[2020-12-07 02:00] VITALS: BP 138/88
--- NOTE | 2020-12-07 10:00 | ECGEPIP ---
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
== END 2020-12-07 02:00 | disposition home or self-care (01) ==
LOC: M ED 20:21
DX: H60.92 Unspecified otitis externa, left ear (principal); L03.115 Cellulitis of right lower limb; I10 Essential (primary) hypertension; Z91.030 Bee allergy status; Z91.040 Latex allergy status

== ENCOUNTER 2020-12-09 02:35 | Emergency (ER) | payer MEDICARE, MEDICAID ==
[~2020-12-09] VITALS: Ht 162.6 cm; Wt 150.0 kg
[2020-12-09 02:35] VITALS: BP 196/119
[~2020-12-09 02:35] MED LIST changes: +AUGM875T28 PO; +CVS500TA35 PO; +ECON1CRE8 TOP; +IBUP80TA PO; +MAGICMW SSP
[2020-12-09] MEDS ORDERED: NORCO (02:46)
[2020-12-09] MEDS ORDERED: OXYMETAZOLINE 0.05% NASAL SPRAY (AFRIN) ONE (04:05)
== END 2020-12-09 04:20 | disposition home or self-care (01) ==
LOC: M ED 02:35
DX: H66.92 Otitis media, unspecified, left ear (principal); R03.0 Elevated blood-pressure reading, without diagnosis of hypertension; F17.200 Nicotine dependence, unspecified, uncomplicated; Z91.030 Bee allergy status; Z91.040 Latex allergy status; Z79.899 Other long term (current) drug therapy

== ENCOUNTER 2021-07-05 11:56 | Emergency (ER) | payer MEDICARE, MEDICAID ==
[~2021-07-05] VITALS: Ht 162.6 cm; Wt 158.7 kg
[~2021-07-05 11:56] MED LIST changes: +BACTDSTA PO; -CLIN150C15 PO; +CLIN150C17 PO; +NORCO; -SULF1TAB93 PO
--- OUTSIDE RECORDS SUMMARY | 2021-07-05 12:09 | CCD ---
Author Author [facility] Address Unknown Phone Unavailable Support Name Relationship Address Phone UN Next Of Kin Unknown Unavailable UE Next Of Kin Unknown Unavailable DISABLED Next Of Kin Unknown Unavailable UNEMPLOYED Next Of Kin Unknown Charlie ORELLANA Next Of Kin [address] [place] [address] Lisa Orellana ECON [address] [place] [address] Unavailable Re-disclosure Warning The records that you are about to access may contain information from federally-assisted alcohol or drug abuse programs. If such information is present, then the following federally mandated warning applies: This information has been disclosed to you from records protected by federal confidentiality rules (42 CFR part 2). The federal rules prohibit you from making any further disclosure of this information unless further disclosure is expressly permitted by the written consent of the person to whom it pertains or as otherwise permitted by 42 CFR part 2. A general authorization for the release of medical or other information is NOT sufficient for this purpose. The Federal rules restrict any use of the information to criminally investigate or prosecute any alcohol or drug abuse patient.The records that you are about to access may contain highly sensitive health information, the redisclosure of which is protected by Article 27-F of the [facility] Public Health law. If you continue you may have access to information: Regarding HIV / AIDS; Provided by facilities licensed or operated by the [facility] Office of Mental Health; or Provided by the [facility] Office for People With Developmental Disabilities. If such information is present, then the following [facility] mandated warning applies: This information has been disclosed to you from confidential records which are protected by state law. State law prohibits you from making any further disclosure of this information without the specific written consent of the person to whom it pertains, or as otherwise permitted by law. Any unauthorized further disclosure in violation of state law may result in a fine or half-way sentence or both. A general authorization for the release of medical or other information is NOT sufficient authorization for further disc losure. Encounters Encounter Providers Location Date Indications Data Source(s ) [place] [address] [facility] [address] 12/08/2020 12:00:00 AM EDT eCW1 ([facility]) [place] [address] [address] 12/07/2020 12:00:00 AM EDT eCW1 ([facility]) Unknown [address] [address] 09/30/2020 12:00:00 AM EST eCW1 ([facility]) Immunizations Vaccine Date Status Description Data Source(s) COVID-19 VACCINE Moderna 03/06/2021 12:00:00 AM EDT completed NYSIIS Vaccine Series Complete: YESThis Data wa s Submitted to [facility] Via [employer]. COVID-19 VACCINE Moderna 02/06/2021 12:00:00 AM EDT completed [facility]IS Vaccine Series Complete: NOThis Data was Submitted to [facility] Via [employer]. Medications Medication Brand Name Start Date Product Form Dose Route Admi nistrative Instructions Pharmacy Instructions Status Indications Reaction Description Data Source(s) 800 mg 12/07/2020 12:00:00 AM EDT tablet 30 TAKE ONE TABLET BY MOUTH EVERY 6 HOURS NEEDED FOR PAIN TAKE ONE TABLET BY MOUTH EVERY 6 HOURS A S NEEDED FOR PAIN SOLD: 12/07/2020 [facility] [id number] 12/07/2020 12:00:00 AM EDT Liquid 300 SWISH & SPIT 10ML BY MOUTH FOUR TIMES A DAY NEEDED FOR MUCOSITIS SWISH & SPIT 10ML BY MOUTH FOUR TIMES A DAY NEEDED FOR MUCOSITIS SOLD: 12/07/2020 [facility] 500 mg 12/07/2020 12:00:00 AM EDT tablet 60 TAKE TWO TABLETS BY MOUTH EVERY 6 HOURS NEEDED FOR PAIN OR FEVER TAKE TWO TABLETS BY MOUTH EVERY 6 HOURS NEEDED FOR PAIN OR FEVER SOLD: 12/07/2020 [facility] 875-125 mg 12/07/2020 12:00:00 AM EDT tablet 20 TAKE ONE TABLET BY MOUTH TWICE A DAY FOR 10 DAYS TAKE ONE TABLET BY MOUTH TWICE A DAY FOR 10 DAYS SOLD: 12/07/2020 [facility] 1 % 07/11/2020 12:00:00 AM EDT cream 85 APPLY TO THE WEBSPACED OF THE BILATERAL FEET TWO TIMES A DAY FOR 14 DAYS APPLY TO THE WEBSPACED OF THE BILATERAL FEET TWO TIMES A DAY FOR 14 DAYS SOLD: 08/01/2020 [facility] Econazole Nitrate 10 MG/ML Topical Cream Econazole Nit rate 1 % Econazole Nitrate 1 % 07/10/2020 12:00:00 AM EDT active Econazole Nitrate 1 % eCW1 ([facility]) Econazole Nitrate 10 MG/ML Topical Cream Econazole Nit rate 1 % Econazole Nitrate 1 % 07/10/2020 12:00:00 AM EDT active Econazole Nitrate 1 % eCW1 ([facility]) Econazole Nitrate 10 MG/ML Topical Cream Econazole Nit rate 1 % Econazole Nitrate 1 % 07/10/2020 12:00:00 AM EDT active Econazole Nitrate 1 % eCW1 ([facility]) Econazole Nitrate 10 MG/ML Topical Cream Econazole Nit rate 1 % Econazole Nitrate 1 % 07/10/2020 12:00:00 AM EDT active Econazole Nitrate 1 % eCW1 ([facility]) Insurance Providers Payer name Policy type / Coverage type Policy ID Covered democrat ID Covered democrat's relationship to michaels Policy Michaels Plan Information MEDICARE A [id number] Self [id number] 2C1 MEDICAID M [id number] Self [id number] EMEDNY [id number] SP [id number] [facility] COMM[facility]ITY PLAN [facility] [id number] SP [id number] [facility] [id number] SP [id number] [facility] COMM[facility] [id number] SP [id number] MEDICAID [id number] SP [id number] ANSI-Medicaid [id number] ANSI-Medicaid [id number] ANSI-Medicare Part B [id number] ANSI-Medicare Part B [id number] ANSI-Medicare Part B [id number] ANSI-Medicaid [id number] ANSI-Medicare Part B [id number] ANSI-Medicaid [id number] ANSI-Medicaid [id number] ANSI-Medicare Part B [id number] ANSI-Medicare Part B [id number] ANSI-Medicare Part B [id number] [facility] [id number] ANS-Medicaid [id number] [facility] O [id number] S [id number] MEDICARE [id number] SP [id number] 2C1 MEDICAID [id number] SP [id number] [employer] [id number] SP [id number] MEDICARE C [id number] S [id number] 2C1 MEDICAID M [id number] S [id number] [facility] ADMINISTRATORS, [facility] C [id number] S [id number] 42-C1 [facility] MEDICAID [id number] SP [id number] F [id number] [facility] [id number] SP [id number] Problems, Conditions, and Diagnoses No Information Surgeries/Procedures No Information Results No Information Social History Code Duration Value Status Description Data Source(s ) Smoking 12/08/2020 12:00:00 AM EDT Former Smoker completed Former Smoker eCW1 ([facility]) Smoking 12/08/2020 12:00:00 AM EDT Former Smoker completed Former Smoker eCW1 ([facility]) Smoking 09/30/2020 12:00:00 AM EST Former Smoker completed Former Smoker eCW1 ([facility]) Smoking 07/10/2020 12:00:00 AM EDT Former Smoker completed Former Smoker eCW1 ([facility]) Patient Treatment Plan of Care Planned Activity Planned Date Details Description Data Source (s) Econazole Nitrate 10 MG/ML Topical Cream 07/10/2020 12:00:00 AM EDT eCW1 ([facility])
[2021-07-05 14:05] LABS: BASO # 0.1 10^3/uL (0.0-0.2); BASO % 0.2 % (0.0-1.0); HEMATOCRIT 48.5 % (42.0-52.0); HEMOGLOBIN 15.7 g/dl (13.5-17.5); LYMPH # 0.5 10^3/uL (1.5-5.0); LYMPH % 2.6 % (24.0-44.0); MEAN CORPUSCULAR HEMOGLOBIN 28.7 pg (27.0-33.0); MEAN CORPUSCULAR HGB CONC 32.4 g/dl (32.0-36.5); MEAN CORPUSCULAR VOLUME 88.7 fl (80.0-96.0); MONO # 1.1 10^3/uL (0.0-0.8); MONO % 5.5 % (2.0-8.0); NEUTROPHILS # 18.6 10^3/uL (1.5-8.5); NEUTROPHILS % 90.9 % (36.0-66.0); PLATELET COUNT, AUTOMATED 214 10^3/uL (150-450); RED BLOOD COUNT 5.47 10^6/uL (4.30-6.10); WHITE BLOOD COUNT 20.5 10^3/uL (4.0-10.0)
[2021-07-05 14:24] LABS: BLOOD UREA NITROGEN 13 MG/DL (7-18); C REACTIVE PROTEIN QUANTITATIV 3.12 MG/DL (0.00-0.30); CARBON DIOXIDE LEVEL 26 MEQ/L (21-32); CHLORIDE LEVEL 105 MEQ/L (98-107); CREATININE FOR GFR 1.09 MG/DL (0.70-1.30); GLOMERULAR FILTRATION RATE > 60.0 (>60); GLUCOSE, FASTING 112 MG/DL (70-100); SODIUM LEVEL 137 MEQ/L (136-145)
[2021-07-05 14:28] LABS: ERYTHROCYTE SEDIMENTATION RATE 9 mm/hr (0-15)
--- OUTSIDE RECORDS SUMMARY | 2021-07-05 14:34 | CCD ---
Author Author [facility] Address Unknown Phone Unavailable Support Name Relationship Address Phone UN Next Of Kin Unknown Unavailable UE Next Of Kin Unknown Unavailable DISABLED Next Of Kin Unknown Unavailable UNEMPLOYED Next Of Kin Unknown LISA ORELLANA Next Of Kin [address] [place] [address] Lisa Orellana ECON [address] [place] [address] Unavailable Re-disclosure Warning The records that you [...] is protected by Article 27-F of the [facility] Public Health law. If you continue you may have access to information: Regarding HIV / AIDS; Provided by facilities licensed or operated by the [facility] Office of Mental Health; or Provided by the [facility] Office for People With Developmental Disabilities. If such information is present, then the following [facility] mandated warning applies: This information has been [...] law may result in a fine or senior living sentence or both. A general authorization for the release of medical or other information is NOT sufficient authorization for further disc losure. Encounters Encounter Providers Location Date Indications Data Source(s ) [place] [address] [facility] [address] 12/08/2020 12:00:00 AM EDT eCW1 ([facility]) Unknown [address] [address] 12/07/2020 12:00:00 AM EDT eCW1 ([facility]) Unknown [address] [facility] [address] 09/30/2020 12:00:00 AM EST eCW1 ([facility]) Immunizations Vaccine Date Status Description Data Source(s) COVID-19 VACCINE Moderna 03/06/2021 12:00:00 AM EDT completed [place] Vaccine Series Complete: YESThis Data wa s Submitted to [facility] Via [employer]. COVID-19 VACCINE Moderna 02/06/2021 12:00:00 AM EDT completed [place] Vaccine Series Complete: NOThis Data was Submitted to [facility] Via Who@. Medications Medication Brand Name Start Date Product Form Dose Route Admi nistrative Instructions Pharmacy Instructions Status Indications Reaction Description Data Source(s) 800 mg 12/07/2020 12:00:00 AM EDT tablet 30 TAKE ONE TABLET BY MOUTH EVERY 6 HOURS NEEDED FOR PAIN TAKE ONE TABLET BY MOUTH EVERY 6 HOURS A S NEEDED FOR PAIN SOLD: 12/07/2020 [facility] [id number] 12/07/2020 12:00:00 AM EDT Liquid 300 SWISH [...] EDT active Econazole Nitrate 1 % eCW1 ([facility]) Econazole Nitrate 10 MG/ML Topical Cream Econazole Nit rate 1 % Econazole Nitrate 1 % 07/10/2020 12:00:00 AM EDT active Econazole Nitrate 1 % eCW1 ([facility]) Econazole Nitrate 10 MG/ML Topical Cream Econazole Nit rate 1 % Econazole Nitrate 1 % 07/10/2020 12:00:00 AM EDT active Econazole Nitrate 1 % eCW1 ([facility]) Econazole Nitrate 10 MG/ML Topical Cream Econazole Nit rate 1 % Econazole Nitrate 1 % 07/10/2020 12:00:00 AM EDT active Econazole Nitrate 1 % eCW1 ([facility]) Insurance Providers Payer name Policy type / Coverage type Policy ID Covered republican ID Covered republican's relationship to bland Policy Bland Plan Information MEDICARE A [id number] Self [id number] MEDICAID M [id number] Self [id number] EMEDNY [id number] SP [id number] [facility] COMMUNITY PLAN [facility] [id number] SP [id number] [facility] [id number] SP [id number] [facility] COMMUNITY PLAN [facility] [id number] SP [id number] MEDICAID [id number] SP [id number] ANSI-Medicaid [id number] ANSI-Medicaid [id number] ANSI-Medicare Part B [id number] ANSI-Medicare Part B [id number] ANSI-Medicare Part B [id number] ANSI-Medicaid [id number] ANSI-Medicare Part B [id number] ANSI-Medicaid [id number] ANSI-Medicaid [id number] ANSI-Medicare Part B [id number] ANSI-Medicare Part B [id number] ANSI-Medicare Part B [id number] ANSI-Medicare Part B [id number] ANS-Medicaid [id number] [facility] O [id number] S [id number] MEDICARE [id number] SP [id number] 2C1 MEDICAID [id number] SP [id number] [employer] [id number] SP [id number] MEDICARE C [id number] S [id number] 2C1 MEDICAID M [id number] S [id number] [facility] ADMINISTRATORS, [facility] C [id number] S [id number] 42-C1 [facility] MEDICAID [id number] SP [id number] F [id number] [facility] [id number] SP [id number] Problems, Conditions, and Diagnoses No Information Surgeries/Procedures No Information Results No Information Social History Code Duration Value Status Description Data Source(s ) Smoking 12/08/2020 12:00:00 AM EDT Former Smoker completed Former Smoker eCW1 ([facility]) Smoking 12/08/2020 12:00:00 AM EDT Former Smoker completed Former Smoker eCW1 ([facility]) Smoking 09/30/2020 12:00:00 AM EST Former Smoker completed Former Smoker eCW1 ([facility]) Smoking 07/10/2020 12:00:00 AM EDT Former Smoker completed Former Smoker eCW1 ([facility]) Patient Treatment Plan of Care Planned Activity Planned Date Details Description Data Source (s) Econazole Nitrate 10 MG/ML Topical Cream 07/10/2020 12:00:00 AM EDT eCW1 ([facility])
[2021-07-05] MEDS ORDERED: ACETAMINOPHEN 500 MG TAB PO ONE (15:20)
[2021-07-05] MEDS ORDERED: VANCOMYCIN HCL 2,000 MG in D5W 500 ML IV ONE (15:20)
[2021-07-05] MEDS ORDERED: NS 1,000 ML IV ONE (15:20)
[2021-07-05] MEDS ORDERED: VANCOMYCIN HCL 1,000 MG, VIAL MATE ADAPTER 1 EACH in NS 250 ML IV ONE ×2 (15:25→16:30)
--- NOTE | 2021-07-05 16:33 | REP ---
INDICATION: r/o dvt RLE. COMPARISON: None. TECHNIQUE: Multiple ultrasonographic images of the deep venous structures of the right lower extremity were obtained from the inguinal ligament to the ankle. Venous compression techniques, color doppler imaging, and augmentation techniques were also obtained where appropriate. As per the ACR guidelines the anterior tibial vein can not be effectively evaluated. Only compression techniques in the calf on the peroneal and posterior tibial veins was attempted/performed. FINDINGS: There is no abnormal echogenic material seen within any of the visualized deep venous structures that would suggest acute thrombosis. Coaptation is unremarkable throughout. Doppler interrogation shows an expected response to respiratory variability and augmentation in the thigh. Compression techniques in the calf were unobtainable. The color flow images show what appears to be a normal vascular pattern throughout the thigh. IMPRESSION: There is no ultrasonographic evidence of deep venous thrombosis involving any of the visualized deep venous structures of the right lower extremity as described above. Due to technical parameters calf vein DVT can not be ruled out. <Electronically signed by Chao Bateman > 07/05/21 1958
[2021-07-05] MEDS ORDERED: LIDOCAINE 1% SDV 5ML VIAL DILUENT ONE (18:05)
[2021-07-05] MEDS ORDERED: cefTRIAXone SOD 2 GM VIAL (J0696 PER 250MG) IM ONE (18:05)
[2021-07-05] MEDS ORDERED: BACT800T5 PO (18:08)
[2021-07-05 19:47] VITALS: BP 150/99
== END 2021-07-05 19:50 | disposition home or self-care (01) ==
LOC: M ED 11:56
DX: L03.115 Cellulitis of right lower limb (principal); I10 Essential (primary) hypertension; G43.909 Migraine, unspecified, not intractable, without status migrainosus; G47.33 Obstructive sleep apnea (adult) (pediatric); F41.9 Anxiety disorder, unspecified; E66.9 Obesity, unspecified; Z91.040 Latex allergy status; Z91.030 Bee allergy status; Z79.899 Other long term (current) drug therapy
CPT/HCPCS: 36415; 80048; 83605; 85025; 85652; 86140; 87040; 93971; 96372; 99283; J0696

== ENCOUNTER 2021-07-06 12:35 | Emergency (ER) | payer MEDICARE, MEDICAID ==
[~2021-07-06] VITALS: Ht 162.6 cm; Wt 156.9 kg
--- OUTSIDE RECORDS SUMMARY | 2021-07-06 12:47 | CCD ---
Author Author [facility] Address Unknown Phone Unavailable Support Name Relationship Address Phone UN Next Of Kin Unknown Unavailable UE Next Of Kin Unknown Unavailable DISABLED Next Of Kin Unknown Unavailable UNEMPLOYED Next Of Kin Unknown SHARRI CARDONA Next Of Kin [address] [place] [address] SHARRI CARDONA ECON [address] [place] [address] Unavailable Re-disclosure Warning The records that you [...] is protected by Article 27-F of the [facility] Public Health law. If you continue you may have access to information: Regarding HIV / AIDS; Provided by facilities licensed or operated by the [facility] Office of Mental Health; or Provided by the [facility] Office for People With Developmental Disabilities. If such information is present, then the following [facility] mandated warning applies: This information has [...] law may result in a fine or group home sentence or both. A general authorization for the release of medical or other information is NOT sufficient authorization for further disc losure. Encounters Encounter Providers Location Date Indications Data Source(s ) Unknown [address] [facility] [address] 12/08/2020 12:00:00 AM EDT eCW1 ([facility]) Unknown [address] [facility] [address] 12/07/2020 12:00:00 AM EDT eCW1 ([facility]) Unknown [address] [facility] [place] [address] 09/30/2020 12:00:00 AM EST eCW1 ([facility]) Immunizations Vaccine Date Status Description Data Source(s) COVID-19 VACCINE Moderna 03/06/2021 12:00:00 AM EDT completed [place]IS Vaccine Series Complete: YESThis Data wa s Submitted to [facility] Via [employer]. COVID-19 VACCINE Moderna 02/06/2021 12:00:00 AM EDT completed [place] Vaccine Series Complete: NOThis Data was Submitted to [facility] Via [employer]. Medications Medication Brand Name Start Date Product Form Dose Route Admi nistrative Instructions Pharmacy Instructions Status Indications Reaction Description Data Source(s) 800 mg 12/07/2020 12:00:00 AM EDT tablet 30 TAKE ONE TABLET BY MOUTH EVERY 6 HOURS NEEDED FOR PAIN TAKE ONE TABLET BY MOUTH EVERY 6 HOURS A S NEEDED FOR PAIN SOLD: 12/07/2020 [facility] [id number] 12/07/2020 12:00:00 AM EDT Liquid 300 SWISH & SPIT 10ML BY MOUTH FOUR TIMES A DAY NEEDED FOR MUCOSITIS SWISH & SPIT 10ML BY MOUTH FOUR TIMES A DAY NEEDED FOR MUCOSITIS SOLD: 12/07/2020 [facility] 500 mg 12/07/2020 12:00:00 AM EDT [...] Econazole Nitrate 1 % eCW1 ([facility]) Econazole Nitrate 10 MG/ML Topical Cream Econazole Nit rate 1 % Econazole Nitrate 1 % 07/10/2020 12:00:00 AM EDT active Econazole Nitrate 1 % eCW1 ([facility]) Econazole Nitrate 10 MG/ML Topical Cream Econazole Nit rate 1 % Econazole Nitrate 1 % 07/10/2020 12:00:00 AM EDT active Econazole Nitrate 1 % eCW1 ([facility]) Econazole Nitrate 10 MG/ML Topical Cream Econazole Nit rate 1 % Econazole Nitrate 1 % 07/10/2020 12:00:00 AM EDT active Econazole Nitrate 1 % eCW1 ([facility]) Insurance Providers Payer name Policy type / Coverage type Policy ID Covered democrat ID Covered democrat's relationship to michaels Policy Michaels Plan Information MEDICARE A [id number] Self [id number] 2C1 MEDICAID M [id number] Self [id number] EMEDNY [id number] SP [id number] [facility]UNITY PLAN [facility] [id number] SP [id number] [facility] [id number] SP [id number] [facility] COMMUNITY PLAN [facility] [id number] SP [id number] MEDICAID [id number] SP [id number] ANSI-Medicaid [id number] ANSI-Medicaid [id number] ANSI-Medicare Part B [id number] ANSI-Medicare Part B [id number] ANSI-Medicare Part B [id number] ANSI-Medicaid [id number] ANSI-Medicare Part B [id number] ANSI-Medicaid [id number] ANSI-Medicaid [id number] ANSI-Medicare Part B [id number] ANSI-Medicare Part B [id number] ANSI-Medicare Part B [id number] ANSI-Medicare Part B [id number] ANS-Medicaid [id number] [facility] O [id number] S [id number] MEDICARE [id number] SP [id number] 2C1 MEDICAID [id number] SP [id number] [employer] [id number] SP [id number] MEDICARE C [id number] S [id number] 2C1 MEDICAID M [id number] S [id number] [facility] ADMINISTRATORS, [facility] C [id number] S [id number] [id number] [facility] MEDICAID [id number] SP [id number] F [id number] [facility] [id number] SP [id number] Problems, Conditions, and Diagnoses No Information Surgeries/Procedures No Information Results No Information Social History Code Duration Value Status Description Data Source(s ) Smoking 12/08/2020 12:00:00 AM EDT Former Smoker completed Former Smoker eCW1 ([facility]) Smoking 12/08/2020 12:00:00 AM EDT Former Smoker completed Former Smoker eCW1 ([facility]) Smoking 09/30/2020 12:00:00 AM EST Former Smoker completed Former Smoker eCW1 ([facility]) Smoking 07/10/2020 12:00:00 AM EDT Former Smoker completed Former Smoker eCW1 ([facility]) Patient Treatment Plan of Care Planned Activity Planned Date Details Description Data Source (s) Econazole Nitrate 10 MG/ML Topical Cream 07/10/2020 12:00:00 AM EDT eCW1 ([facility])
[2021-07-06] MEDS ORDERED: BACTRIM 160MG/800MG DS TAB PO ONE (15:55)
--- OUTSIDE RECORDS SUMMARY | 2021-07-06 16:11 | CCD ---
Author Author [facility] Address Unknown Phone Unavailable Support Name Relationship Address Phone UN Next Of Kin Unknown Unavailable UE Next Of Kin Unknown Unavailable DISABLED Next Of Kin Unknown Unavailable UNEMPLOYED Next Of Kin Unknown SHARRI CARDONA Next Of Kin [address] [place] [address] SHARRI CARDONA ECON [address] [place] [address] Unavailable Re-disclosure Warning The records that you [...] is protected by Article 27-F of the [facility] Public Health law. If you continue you may have access to information: Regarding HIV / AIDS; Provided by facilities licensed or operated by the [facility] Office of Mental Health; or Provided by the [facility] Office for People With Developmental Disabilities. If such information is present, then the following [facility] mandated warning applies: This information has [...] law may result in a fine or nursing home sentence or both. A general authorization for the release of medical or other information is NOT sufficient authorization for further disc losure. Encounters Encounter Providers Location Date Indications Data Source(s ) [place] [address] [facility] [address] 12/08/2020 12:00:00 AM EDT eCW1 ([facility]) [place] [address] [facility] [address] 12/07/2020 12:00:00 AM EDT eCW1 ([facility]) Unknown [address] [facility] [address] 09/30/2020 12:00:00 AM EST eCW1 ([facility]) Immunizations Vaccine Date Status Description Data Source(s) COVID-19 VACCINE Moderna 03/06/2021 12:00:00 AM EDT completed [facility]SIIS Vaccine Series Complete: YESThis Data wa s Submitted to [facility] Via [employer]. COVID-19 VACCINE Moderna 02/06/2021 12:00:00 AM EDT completed [place] Vaccine Series Complete: NOThis Data was Submitted to [facility] Via [employer]. Medications Medication Brand Name Start Date Product Form Dose Route Admi nistrative Instructions Pharmacy Instructions Status Indications Reaction Description Data Source(s) 800 mg 12/07/2020 12:00:00 AM EDT tablet 30 TAKE ONE TABLET BY MOUTH EVERY 6 HOURS NEEDED FOR PAIN TAKE ONE TABLET BY MOUTH EVERY 6 HOURS A S NEEDED FOR PAIN SOLD: 12/07/2020 [facility] [id number] 12/07/2020 12:00:00 AM EDT Liquid 300 SWISH [...] Nitrate 1 % eCW1 ([facility]) Econazole Nitrate 10 MG/ML Topical Cream Econazole Nit rate 1 % Econazole Nitrate 1 % 07/10/2020 12:00:00 AM EDT active Econazole Nitrate 1 % eCW1 ([facility]) Econazole Nitrate 10 MG/ML Topical Cream Econazole Nit rate 1 % Econazole Nitrate 1 % 07/10/2020 12:00:00 AM EDT active Econazole Nitrate 1 % eCW1 ([facility]) Econazole Nitrate 10 MG/ML Topical Cream Econazole Nit rate 1 % Econazole Nitrate 1 % 07/10/2020 12:00:00 AM EDT active Econazole Nitrate 1 % eCW1 ([facility]) Insurance Providers Payer name Policy type / Coverage type Policy ID Covered alliance party ID Covered alliance party's relationship to michaels Policy Michaels Plan Information MEDICARE A [id number] Self [id number] MEDICAID M [id number] Self [id number] EMEDNY [id number] SP [id number] [facility]MERLY [facility] COMM[facility]AN [facility] [id number] SP [id number] [facility] [id number] SP [id number] [facility] COMM[facility]AN [facility] [id number] SP [id number] MEDICAID [id number] SP [id number] ANSI-Medicaid [id number] ANSI-Medicaid [id number] ANSI-Medicare Part B [id number] ANSI-Medicare Part B [id number] ANSI-Medicare Part B [id number] ANSI-Medicaid [id number] ANSI-Medicare Part B [id number] ANSI-Medicaid [id number] ANSI-Medicaid [id number] ANSI-Medicare Part B [id number] ANSI-Medicare Part B [id number] ANSI-Medicare Part B [id number] ANSI-Medicare Part B [id number] ANS-Medicaid [id number] [facility] O [id number] S [id number] MEDICARE [id number] SP [id number] 2C1 MEDICAID [id number] SP [id number] [employer] [id number] SP [id number] MEDICARE C [id number] S [id number] 2C1 MEDICAID M [id number] S [id number] [facility] ADMINISTRATORS, [facility] C [id number] S [id number]-C1 [facility] MEDICAID [id number] SP [id number] F [id number] [facility] [id number] SP [id number] Problems, Conditions, and Diagnoses No Information Surgeries/Procedures No Information Results No Information Social History Code Duration Value Status Description Data Source(s ) Smoking 12/08/2020 12:00:00 AM EDT Former Smoker completed Former Smoker eCW1 ([facility]) Smoking 12/08/2020 12:00:00 AM EDT Former Smoker completed Former Smoker eCW1 ([facility]) Smoking 09/30/2020 12:00:00 AM EST Former Smoker completed Former Smoker eCW1 ([facility]) Smoking 07/10/2020 12:00:00 AM EDT Former Smoker completed Former Smoker eCW1 ([facility]) Patient Treatment Plan of Care Planned Activity Planned Date Details Description Data Source (s) Econazole Nitrate 10 MG/ML Topical Cream 07/10/2020 12:00:00 AM EDT eCW1 ([facility])
[2021-07-06 16:20] VITALS: BP 167/97
== END 2021-07-06 16:20 | disposition left against medical advice (07) ==
LOC: M ED 12:35
DX: L03.115 Cellulitis of right lower limb (principal); R21 Rash and other nonspecific skin eruption; Z53.9 Procedure and treatment not carried out, unspecified reason; G43.909 Migraine, unspecified, not intractable, without status migrainosus; G47.33 Obstructive sleep apnea (adult) (pediatric); F41.9 Anxiety disorder, unspecified; Z91.030 Bee allergy status; Z91.040 Latex allergy status; Z79.899 Other long term (current) drug therapy

== ENCOUNTER 2021-07-10 19:47 | Emergency (ER) | payer MEDICARE, MEDICAID ==
[~2021-07-10] VITALS: Ht 162.6 cm; Wt 153.5 kg
--- OUTSIDE RECORDS SUMMARY | 2021-07-10 19:55 | CCD ---
Author Author [facility] Address Unknown Phone Unavailable Support Name Relationship Address Phone UN Next Of Kin Unknown Unavailable UE Next Of Kin Unknown Unavailable DISABLED Next Of Kin Unknown Unavailable UNEMPLOYED Next Of Kin Unknown SHARRI CARDONA Next Of Kin [address] [place] [address] SHARRI CARDONA ECON [address] [place] [address] Unavailable Re-disclosure Warning The records that you [...] is protected by Article 27-F of the [facility] Public Health law. If you continue you may have access to information: Regarding HIV / AIDS; Provided by facilities licensed or operated by the [facility] Office of Mental Health; or Provided by the [facility] Office for People With Developmental Disabilities. If such information is present, then the following [facility] mandated warning applies: This information has [...] law may result in a fine or penitentiary sentence or both. A general authorization for the release of medical or other information is NOT sufficient authorization for further disc losure. Encounters Encounter Providers Location Date Indications Data Source(s ) Unknown [address] [facility] [address] 12/08/2020 12:00:00 AM EDT eCW1 ([facility]) Unknown [address] [facility] [address] 12/07/2020 12:00:00 AM EDT eCW1 ([facility]) Unknown [address] [facility] [address] 09/30/2020 12:00:00 AM EST eCW1 ([facility]) Immunizations Vaccine Date Status Description Data Source(s) COVID-19 VACCINE Moderna 03/06/2021 12:00:00 AM EDT completed [place]IS Vaccine Series Complete: YESThis Data wa s Submitted to [facility] Via [employer] COVID-19 VACCINE Moderna 02/06/2021 12:00:00 AM EDT completed [place] Vaccine Series Complete: NOThis Data was Submitted to [facility] Via [employer] Medications Medication Brand Name Start Date Product Form Dose Route Admi nistrative Instructions Pharmacy Instructions Status Indications Reaction Description Data Source(s) 800-160 mg 07/05/2021 12:00:00 AM EDT tablet 20 TAKE ONE TABLET BY MOUTH EVERY 12 HOURS TAKE ONE TABLET BY MOUTH EVERY 12 HOURS SOLD: 07/06/2021 [facility] 800 mg 12/07/2020 12:00:00 AM EDT tablet 30 TAKE ONE TABLET BY MOUTH EVERY 6 HOURS NEEDED FOR PAIN TAKE ONE TABLET BY MOUTH EVERY 6 HOURS A S NEEDED FOR PAIN SOLD: 12/07/2020 [facility] [id number] 12/07/2020 12:00:00 AM EDT Liquid 300 SWISH [...] NEEDED FOR PAIN OR FEVER SOLD: 12/07/2020 [facility] 875-125 mg 12/07/2020 12:00:00 AM EDT [...] EDT active Econazole Nitrate 1 % eCW1 ([facility]) Econazole Nitrate 10 MG/ML Topical Cream Econazole Nit rate 1 % Econazole Nitrate 1 % 07/10/2020 12:00:00 AM EDT active Econazole Nitrate 1 % eCW1 ([facility]) Econazole Nitrate 10 MG/ML Topical Cream Econazole Nit rate 1 % Econazole Nitrate 1 % 07/10/2020 12:00:00 AM EDT active Econazole Nitrate 1 % eCW1 ([facility]) Econazole Nitrate 10 MG/ML Topical Cream Econazole Nit rate 1 % Econazole Nitrate 1 % 07/10/2020 12:00:00 AM EDT active Econazole Nitrate 1 % eCW1 ([facility]) Insurance Providers Payer name Policy type / Coverage type Policy ID Covered democrat ID Covered democrat's relationship to mihcaels Policy Michaels Plan Information MEDICARE A [id number] Self [id number] 2C1 MEDICAID M [id number] Self [id number] EMEDNY [id number] SP [id number] [facility] COMMUNITY PLAN [facility] [id number] SP [id number] [facility] [id number] SP [id number] [facility] PLAN [facility] [id number] SP [id number] MEDICAID [id number] SP [id number] ANSI-Medicaid [id number] ANSI-Medicaid [id number] ANSI-Medicare Part B [id number] ANSI-Medicare Part B [id number] ANSI-Medicare Part B [id number] ANSI-Medicaid [id number] ANSI-Medicare Part B [id number] ANSI-Medicaid [id number] ANSI-Medicaid [id number] ANSI-Medicare Part B [id number] ANSI-Medicare Part B [id number] ANSI-Medicare Part B [id number] ANSI-Medicare Part B [id number] ANSI-Medicaid [id number] [facility] O [id number] S [id number] MEDICARE [id number] SP [id number] 2C1 MEDICAID [id number] SP [id number] [employer] [id number] SP [id number] MEDICARE C [id number] S [id number] 2C1 MEDICAID M [id number] S [id number] [facility] ADMINISTRATORS, [facility] C [id number] S [id number]-C1 [facility] MEDICAID [id number] SP [id number] F [id number] [facility] [id number] SP [id number] Problems, Conditions, and Diagnoses No Information Surgeries/Procedures No Information Results No Information Social History Code Duration Value Status Description Data Source(s ) Smoking 12/08/2020 12:00:00 AM EDT Former Smoker completed Former Smoker eCW1 ([facility]) Smoking 12/08/2020 12:00:00 AM EDT Former Smoker completed Former Smoker eCW1 ([facility]) Smoking 09/30/2020 12:00:00 AM EST Former Smoker completed Former Smoker eCW1 ([facility]) Smoking 07/10/2020 12:00:00 AM EDT Former Smoker completed Former Smoker eCW1 ([facility]) Patient Treatment Plan of Care Planned Activity Planned Date Details Description Data Source (s) Econazole Nitrate 10 MG/ML Topical Cream 07/10/2020 12:00:00 AM EDT eCW1 ([facility])
--- NOTE | 2021-07-11 00:36 | REPVR ---
PROCEDURE INFORMATION: Exam: XR Soft Tissue Neck Exam date and time: 07/10/2021 11:04 PM Age: 31 years old Clinical indication: Possible fb TECHNIQUE: Imaging protocol: XR of the soft tissues of the neck. COMPARISON: CR Chest, 2 view PA, Lat 03/12/2017 11:01 PM FINDINGS: Airway: Normal. No abnormal narrowing. No radiopaque foreign body. Soft tissues: Normal. Normal epiglottis. Bones/joints: Unremarkable. IMPRESSION: No radiopaque foreign body. Electronically signed by: Cesar Hurtado On 07/11/2021 00:35:52 AM
[2021-07-11 01:06] VITALS: BP 163/84
--- OUTSIDE RECORDS SUMMARY | 2021-08-05 11:41 | CCD ---
Author Author [facility] Address Unknown Phone Unavailable Support Name Relationship Address Phone UN Next Of Kin Unknown Unavailable UE Next Of Kin Unknown Unavailable DISABLED Next Of Kin Unknown Unavailable UNEMPLOYED Next Of Kin Unknown SHARRI CARDONA Next Of Kin [address] [place] [address] SHARRI CARDONA ECON [address] [place] [address] Unavailable Re-disclosure Warning The records that you [...] is protected by Article 27-F of the [facility] Public Health law. If you continue you may have access to information: Regarding HIV / AIDS; Provided by facilities licensed or operated by the [facility] Office of Mental Health; or Provided by the [facility] Office for People With Developmental Disabilities. If such information is present, then the following [facility] mandated warning applies: This information has been [...] law may result in a fine or fci sentence or both. A general authorization for the release of medical or other information is NOT sufficient authorization for further disc losure. Encounters Encounter Providers Location Date Indications Data Source(s ) Unknown [address] [facility] [address] 12/08/2020 12:00:00 AM EDT eCW1 ([facility]) Unknown [address] [facility] [address] 12/07/2020 12:00:00 AM EDT eCW1 ([facility]) Unknown [address] [facility] [place] [address] 09/30/2020 12:00:00 AM EST eCW1 ([facility]) Immunizations Vaccine Date Status Description Data Source(s) COVID-19 VACCINE Moderna 03/06/2021 12:00:00 AM EDT completed [place]IS Vaccine Series Complete: YESThis Data wa s Submitted to [facility] Via [employer]. COVID-19 VACCINE Moderna 02/06/2021 12:00:00 AM EDT completed [place] Vaccine Series Complete: NOThis Data was Submitted to [facility] Via [employer]. Medications Medication Brand Name Start Date Product [...] FOR PAIN SOLD: 12/07/2020 [facility] [id number] 12/07/2020 12:00:00 AM EDT Liquid 300 SWISH [...] NEEDED FOR PAIN OR FEVER SOLD: 12/07/2020 [facility] 875-125 mg 12/07/2020 12:00:00 AM EDT [...] EDT active Econazole Nitrate 1 % eCW1 ([facility]) Econazole Nitrate 10 MG/ML Topical Cream Econazole Nit rate 1 % Econazole Nitrate 1 % 07/10/2020 12:00:00 AM EDT active Econazole Nitrate 1 % eCW1 ([facility]) Econazole Nitrate 10 MG/ML Topical Cream Econazole Nit rate 1 % Econazole Nitrate 1 % 07/10/2020 12:00:00 AM EDT active Econazole Nitrate 1 % eCW1 ([facility]) Econazole Nitrate 10 MG/ML Topical Cream Econazole Nit rate 1 % Econazole Nitrate 1 % 07/10/2020 12:00:00 AM EDT active Econazole Nitrate 1 % eCW1 ([facility]) Insurance Providers Payer name Policy type / Coverage type Policy ID Covered alliance party ID Covered alliance party's relationship to michaels Policy Michaels Plan Information MEDICARE A [id number] Self [id number] MEDICAID M [id number] Self [id number] EMEDNY [id number] SP [id number] [facility] COMM[facility]ITY [facility]AN [facility] [id number] SP [id number] [facility] [id number] SP [id number] [facility] COMMUNITY PLAN [facility] [id number] SP [id number] MEDICAID [id number] SP [id number] ANSI-Medicaid [id number] ANSI-Medicaid [id number] ANSI-Medicare Part B [id number] ANSI-Medicare Part B [id number] ANSI-Medicare Part B [id number] ANSI-Medicaid [id number] ANSI-Medicare Part B [id number] ANSI-Medicaid [id number] ANSI-Medicaid [id number] ANSI-Medicare Part B [id number] ANSI-Medicare Part B [id number] ANSI-Medicare Part B [id number] ANSI-Medicare Part B [id number] ANSI-Medicaid [id number] [facility] O [id number] S [id number] MEDICARE [id number] SP [id number] 2C1 MEDICAID [id number] SP [id number] [employer] [id number] SP [id number] MEDICARE C [id number] S [id number] 2C1 MEDICAID M [id number] S [id number] [facility] ADMINISTRATORS, [facility] C [id number] S [id number] 42-C1 [facility] MEDICAID [id number] SP [id number] F [id number] [facility] [id number] SP [id number] Problems, Conditions, and Diagnoses No Information Surgeries/Procedures No Information Results No Information Social History Code Duration Value Status Description Data Source(s ) Smoking 12/08/2020 12:00:00 AM EDT Former Smoker completed Former Smoker eCW1 ([facility]) Smoking 12/08/2020 12:00:00 AM EDT Former Smoker completed Former Smoker eCW1 ([facility]) Smoking 09/30/2020 12:00:00 AM EST Former Smoker completed Former Smoker eCW1 ([facility]) Smoking 07/10/2020 12:00:00 AM EDT Former Smoker completed Former Smoker eCW1 ([facility]) Patient Treatment Plan of Care Planned Activity Planned Date Details Description Data Source (s) Econazole Nitrate 10 MG/ML Topical Cream 07/10/2020 12:00:00 AM EDT eCW1 ([facility])
== END 2021-07-11 01:07 | disposition home or self-care (01) ==
LOC: M ED 19:47
DX: R19.8 Other specified symptoms and signs involving the digestive system and abdomen (principal); Z91.040 Latex allergy status; Z91.030 Bee allergy status; Z79.899 Other long term (current) drug therapy

== ENCOUNTER 2022-04-08 23:14 | Emergency (ER) | payer MEDICARE, MEDICAID ==
[~2022-04-08] VITALS: Ht 162.6 cm; Wt 142.2 kg
[2022-04-09] MEDS ORDERED: PRED20TA PO (06:19)
[2022-04-09] MEDS ORDERED: BETA0.0543 TOP (06:19)
[2022-04-09 06:33] VITALS: BP 154/98
== END 2022-04-09 06:35 | disposition home or self-care (01) ==
LOC: M ED 23:14
DX: L25.9 Unspecified contact dermatitis, unspecified cause (principal); M25.511 Pain in right shoulder; G47.33 Obstructive sleep apnea (adult) (pediatric); G43.909 Migraine, unspecified, not intractable, without status migrainosus; F41.9 Anxiety disorder, unspecified; Z79.899 Other long term (current) drug therapy; Z91.018 Allergy to other foods; Z91.030 Bee allergy status; Z91.040 Latex allergy status

== ENCOUNTER → 2022-07-11 | Outpatient (CLI) | payer MEDICARE, MEDICAID ==
[~2022-07-11] MED LIST changes: +BETA0.0543 TOP; +PRED20TA PO
[2022-07-11 16:19] LABS: HEMATOCRIT 47.8 % (42.0-52.0); HEMOGLOBIN 15.6 g/dl (13.5-17.5); MEAN CORPUSCULAR HEMOGLOBIN 29.3 pg (27.0-33.0); MEAN CORPUSCULAR HGB CONC 32.6 g/dl (32.0-36.5); MEAN CORPUSCULAR VOLUME 89.7 fl (80.0-96.0); PLATELET COUNT, AUTOMATED 244 10^3/uL (150-450); RED BLOOD COUNT 5.33 10^6/uL (4.30-6.10)
[2022-07-11 16:53] LABS: ALBUMIN 3.7 GM/DL (3.2-5.2); ALT/SGPT 38 U/L (12-78); BILIRUBIN,TOTAL 0.5 MG/DL (0.2-1.0); BLOOD UREA NITROGEN 16 MG/DL (7-18); CALCIUM LEVEL 8.6 MG/DL (8.5-10.1); CARBON DIOXIDE LEVEL 28 MEQ/L (21-32); CHLORIDE LEVEL 107 MEQ/L (98-107); CHOLESTEROL LEVEL 166 MG/DL (<200); CHOLESTEROL RISK RATIO 3.608 (<5); CREATININE FOR GFR 0.99 MG/DL (0.70-1.30); GLOMERULAR FILTRATION RATE > 60.0 (>60); GLUCOSE, FASTING 85 MG/DL (70-100); HDL CHOLESTEROL 46 MG/DL (>40); LDL CHOLESTEROL 101 MG/DL (<100); NON-HDL-C 120 MG/DL; POTASSIUM SERUM 4.1 MEQ/L (3.5-5.1); SODIUM LEVEL 141 MEQ/L (136-145); TOTAL PROTEIN 7.2 GM/DL (6.4-8.2); TRIGLYCERIDES LEVEL 95 MG/DL (<150)
[2022-07-11 16:57] LABS: HEMOGLOBIN A1c 5.2 %
== END ==
LOC: M PLALAB 13:33
PROVIDERS: ATTEND Family Medicine
DX: I87.2 Venous insufficiency (chronic) (peripheral) (principal); Z13.1 Encounter for screening for diabetes mellitus; Z13.220 Encounter for screening for lipoid disorders; E66.01 Morbid (severe) obesity due to excess calories; G47.33 Obstructive sleep apnea (adult) (pediatric); E07.9 Disorder of thyroid, unspecified

== ENCOUNTER 2023-01-18 12:13 | Emergency (ER) | payer MEDICARE, MEDICAID ==
[~2023-01-18] VITALS: Ht 162.6 cm; Wt 142.4 kg
[~2023-01-18 12:13] MED LIST changes: +DIPH-435 PO; -DIPH25CA32 PO; +FLUT50SP17; -FLUTISP
[2023-01-18] MEDS ORDERED: GI COCKTAIL 50ML BTL(HYOSCYAMINE/MAALOX/LIDOCAINE VISCOUS)(1:3:1) PO ONE (13:20)
[2023-01-18] MEDS ORDERED: cefTRIAXone SOD 2 GM in D5W MINI-BAG PLUS 50 ML IV ONE (13:20)
[2023-01-18] MEDS ORDERED: ACETAMINOPHEN 325 MG TAB PO ONE (13:20)
[2023-01-18 13:39] LABS: BASO # 0.1 10^3/uL (0.0-0.2); BASO % 0.3 % (0.0-1.0); EOS # 0.1 10^3/uL (0.0-0.5); EOS % 0.7 % (0.0-3.0); HEMATOCRIT 49.5 % (42.0-52.0); HEMOGLOBIN 16.6 g/dl (13.5-17.5); LYMPH # 0.4 10^3/uL (1.5-5.0); LYMPH % 1.8 % (24.0-44.0); MEAN CORPUSCULAR HEMOGLOBIN 29.7 pg (27.0-33.0); MEAN CORPUSCULAR HGB CONC 33.5 g/dl (32.0-36.5); MEAN CORPUSCULAR VOLUME 88.6 fl (80.0-96.0); MONO # 0.9 10^3/uL (0.0-0.8); MONO % 4.6 % (2.0-8.0); NEUTROPHILS # 18.2 10^3/uL (1.5-8.5); NEUTROPHILS % 91.8 % (36.0-66.0); PLATELET COUNT, AUTOMATED 181 10^3/uL (150-450); RED BLOOD COUNT 5.59 10^6/uL (4.30-6.10); WHITE BLOOD COUNT 19.8 10^3/uL (4.0-10.0)
[2023-01-18 13:44] LABS: C REACTIVE PROTEIN QUANTITATIV 10.6 MG/DL (<1.0)
[2023-01-18 13:46] LABS: ALBUMIN 3.8 G/DL (3.2-5.2); BILIRUBIN,DIRECT 0.4 MG/DL (<0.4); BILIRUBIN,TOTAL 0.9 MG/DL (0.3-1.2); TOTAL PROTEIN 6.9 G/DL (5.7-8.2)
[2023-01-18 15:08] LABS: ERYTHROCYTE SEDIMENTATION RATE 30 mm/hr (0-15)
[2023-01-18] MEDS ORDERED: DOXY-443 PO (15:35)
[2023-01-18 15:41] VITALS: BP 130/91
== END 2023-01-18 16:04 | disposition home or self-care (01) ==
LOC: M ED 12:13
DX: L03.115 Cellulitis of right lower limb (principal); I10 Essential (primary) hypertension; F41.9 Anxiety disorder, unspecified; Z91.018 Allergy to other foods; Z91.030 Bee allergy status; Z91.040 Latex allergy status

== ENCOUNTER 2023-01-20 09:30 | Inpatient (IN) | payer MEDICARE, MEDICAID ==
[~2023-01-20] VITALS: Ht 162.6 cm; Wt 138.8 kg
[~2023-01-20 09:30] MED LIST changes: +DOXY-443 PO
[2023-01-20] MEDS ORDERED: VANCOMYCIN HCL 2,000 MG in D5W 500 ML IV ONE (09:55)
[2023-01-20] MEDS ORDERED: VANCOMYCIN HCL 1,000 MG, VIAL MATE ADAPTER 1 EACH in NS 250 ML IV ONE ×2 (10:05→11:15)
[2023-01-20 10:26] LABS: BASO # 0.1 10^3/uL (0.0-0.2); BASO % 0.5 % (0.0-1.0); EOS # 0.1 10^3/uL (0.0-0.5); EOS % 0.7 % (0.0-3.0); HEMATOCRIT 52.1 % (42.0-52.0); HEMOGLOBIN 17.6 g/dl (13.5-17.5); LYMPH # 1.6 10^3/uL (1.5-5.0); LYMPH % 16.6 % (24.0-44.0); MEAN CORPUSCULAR HEMOGLOBIN 30.1 pg (27.0-33.0); MEAN CORPUSCULAR HGB CONC 33.8 g/dl (32.0-36.5); MEAN CORPUSCULAR VOLUME 89.1 fl (80.0-96.0); MONO # 1.3 10^3/uL (0.0-0.8); MONO % 13.8 % (2.0-8.0); NEUTROPHILS # 6.4 10^3/uL (1.5-8.5); NEUTROPHILS % 68.2 % (36.0-66.0); PLATELET COUNT, AUTOMATED 194 10^3/uL (150-450); RED BLOOD COUNT 5.85 10^6/uL (4.30-6.10); WHITE BLOOD COUNT 9.4 10^3/uL (4.0-10.0)
[2023-01-20 10:50] LABS: ERYTHROCYTE SEDIMENTATION RATE 68 mm/hr (0-15)
[2023-01-20 10:51] LABS: ALBUMIN 3.9 G/DL (3.2-5.2); ALKALINE PHOSPHATASE 99 U/L (46-116); ALT/SGPT 36 U/L (7.0-40); AST/SGOT 21 U/L (<34); BILIRUBIN,TOTAL 0.8 MG/DL (0.3-1.2); BLOOD UREA NITROGEN 13 MG/DL (9-23); CALCIUM LEVEL 8.9 MG/DL (8.5-10.1); CARBON DIOXIDE LEVEL 22 MMOL/L (20-31); CHLORIDE LEVEL 106 MMOL/L (98-107); CREATININE FOR GFR 1.07 MG/DL (0.70-1.30); GLOMERULAR FILTRATION RATE > 60.0 (>60); GLUCOSE, FASTING 115 MG/DL (60-100); POTASSIUM SERUM 3.3 MMOL/L (3.5-5.1); SODIUM LEVEL 139 MMOL/L (136-145); TOTAL PROTEIN 7.3 G/DL (5.7-8.2)
[2023-01-20 10:59] LABS: RSV AMPLIFICATION NEGATIVE (NEGATIVE)
[2023-01-20] MEDS ORDERED: ACETAMINOPHEN TAB 650MG DOSE (2X325MG) PO PRN (11:40)
[2023-01-20] MEDS ORDERED: KETOROLAC 30 MG/ML 1ML VIAL IV ONE (12:00)
[2023-01-20] MEDS ORDERED: POTASSIUM CHLORIDE 10MEQ SR TABLET PO ONE (12:00)
[2023-01-20] MEDS ORDERED: DOXY-444 PO (12:05)
[2023-01-20] MEDS ORDERED: HOME MED LIST COMPLETE! XX SCH (12:05)
[2023-01-20] MEDS ORDERED: ACET-897 PO (12:05)
[2023-01-20] MEDS: METOPROLOL TART 25 MG TABLET PO SCH ×2 (12:12→17:20)
[2023-01-20] MEDS ORDERED: ENOXAPARIN 40MG/0.4ML SYRINGE (J1650 PER 10MG) SC ONE (13:00)
[2023-01-20] MEDS ORDERED: cloNIDine 0.1MG TABLET PO ONE (13:00)
[2023-01-20 13:04] VITALS: BP 140/78
[2023-01-20 15:45] VITALS: BP 121/75
[2023-01-20 20:00] VITALS: BP 132/84
[2023-01-20] MEDS: VANCOMYCIN HCL 1,000 MG, VIAL MATE ADAPTER 1 EACH in NS 250 ML IV SCH (20:31)
[2023-01-20] MEDS: MORPHINE 2 MG/ML 1ML VIAL IV PRN (20:32)
[2023-01-20 22:00] VITALS: BP 128/80
[2023-01-20 23:58] VITALS: BP 128/74
[2023-01-21] MEDS: METOPROLOL TART 25 MG TABLET PO SCH ×5 (00:25→23:37)
[2023-01-21] MEDS: VANCOMYCIN HCL 1,000 MG, VIAL MATE ADAPTER 1 EACH in NS 250 ML IV SCH (04:52)
[2023-01-21 05:59] LABS: BASO % 0.5 % (0.0-1.0); EOS # 0.2 10^3/uL (0.0-0.5); EOS % 1.8 % (0.0-3.0); HEMATOCRIT 47.4 % (42.0-52.0); HEMOGLOBIN 15.9 g/dl (13.5-17.5); LYMPH # 2.4 10^3/uL (1.5-5.0); MEAN CORPUSCULAR HEMOGLOBIN 29.5 pg (27.0-33.0); MEAN CORPUSCULAR HGB CONC 33.5 g/dl (32.0-36.5); MEAN CORPUSCULAR VOLUME 87.9 fl (80.0-96.0); MONO % 11.8 % (2.0-8.0); NEUTROPHILS % 57.7 % (36.0-66.0); PLATELET COUNT, AUTOMATED 211 10^3/uL (150-450); RED BLOOD COUNT 5.39 10^6/uL (4.30-6.10); WHITE BLOOD COUNT 8.7 10^3/uL (4.0-10.0)
[2023-01-21 06:00] VITALS: BP 136/84
[2023-01-21 06:24] LABS: BLOOD UREA NITROGEN 11 MG/DL (9-23); CALCIUM LEVEL 8.4 MG/DL (8.5-10.1); CARBON DIOXIDE LEVEL 24 MMOL/L (20-31); CHLORIDE LEVEL 107 MMOL/L (98-107); CREATININE FOR GFR 0.86 MG/DL (0.70-1.30); GLOMERULAR FILTRATION RATE > 60.0 (>60); GLUCOSE, FASTING 94 MG/DL (60-100); POTASSIUM SERUM 3.6 MMOL/L (3.5-5.1); SODIUM LEVEL 138 MMOL/L (136-145)
[2023-01-21 07:47] VITALS: BP 134/86
[2023-01-21] MEDS ORDERED: ENOXAPARIN 40MG/0.4ML SYRINGE (J1650 PER 10MG) SC SCH (09:00)
[2023-01-21 12:22] VITALS: BP 145/98
[2023-01-21] MEDS: VANCOMYCIN HCL 1,000 MG, VIAL MATE ADAPTER 1 EACH in D5W 250 ML IV SCH ×3 (12:51→23:38)
[2023-01-21 15:50] VITALS: BP 144/98
[2023-01-21] MEDS ORDERED: BENZOCAINE 10% 9GM TUBE (ANBESOL) TOP PRN (16:45)
[2023-01-21 20:00] VITALS: BP 178/120
[2023-01-21] MEDS: ENOXAPARIN 60MG/0.6ML SYRINGE (J1650 PER 10MG) SC SCH (20:47)
[2023-01-21] MEDS: MORPHINE 2 MG/ML 1ML VIAL IV PRN (20:48)
[2023-01-21 22:00] VITALS: BP 146/84
[2023-01-22 04:00] VITALS: BP 163/93
[2023-01-22] MEDS: METOPROLOL TART 25 MG TABLET PO SCH ×3 (05:44→17:59)
[2023-01-22] MEDS: VANCOMYCIN HCL 1,000 MG, VIAL MATE ADAPTER 1 EACH in D5W 250 ML IV SCH (05:45)
[2023-01-22 05:48] LABS: BASO # 0.1 10^3/uL (0.0-0.2); BASO % 0.6 % (0.0-1.0); EOS # 0.2 10^3/uL (0.0-0.5); EOS % 1.8 % (0.0-3.0); HEMATOCRIT 47.2 % (42.0-52.0); HEMOGLOBIN 15.6 g/dl (13.5-17.5); LYMPH # 2.6 10^3/uL (1.5-5.0); LYMPH % 29.1 % (24.0-44.0); MEAN CORPUSCULAR HEMOGLOBIN 29.5 pg (27.0-33.0); MEAN CORPUSCULAR HGB CONC 33.1 g/dl (32.0-36.5); MEAN CORPUSCULAR VOLUME 89.2 fl (80.0-96.0); MONO % 11.4 % (2.0-8.0); NEUTROPHILS # 5.1 10^3/uL (1.5-8.5); NEUTROPHILS % 56.8 % (36.0-66.0); PLATELET COUNT, AUTOMATED 236 10^3/uL (150-450); RED BLOOD COUNT 5.29 10^6/uL (4.30-6.10)
[2023-01-22 06:00] VITALS: BP 140/78
[2023-01-22 06:11] LABS: BLOOD UREA NITROGEN 10 MG/DL (9-23); CALCIUM LEVEL 8.7 MG/DL (8.5-10.1); CARBON DIOXIDE LEVEL 25 MMOL/L (20-31); CHLORIDE LEVEL 106 MMOL/L (98-107); CREATININE FOR GFR 0.91 MG/DL (0.70-1.30); GLOMERULAR FILTRATION RATE > 60.0 (>60); GLUCOSE, FASTING 102 MG/DL (60-100); POTASSIUM SERUM 3.4 MMOL/L (3.5-5.1); SODIUM LEVEL 140 MMOL/L (136-145)
[2023-01-22 07:57] VITALS: BP 158/86
[2023-01-22] MEDS: ENOXAPARIN 60MG/0.6ML SYRINGE (J1650 PER 10MG) SC SCH ×2 (08:11→21:55)
[2023-01-22] MEDS: PERCOCET 5MG/325MG TAB PO PRN ×3 (08:13→21:56)
[2023-01-22] MEDS ORDERED: INFLUENZA QUADRIVALENT PF VACCINE 0.5ML SYRINGE IM.IMMUN ONE (09:00)
[2023-01-22] MEDS: VANCOMYCIN HCL 750 MG, VIAL MATE ADAPTER 1 EACH in D5W 250 ML IV SCH ×2 (13:18→21:55)
[2023-01-22] MEDS: VANCOMYCIN HCL 500 MG in D5W MINI-BAG PLUS 100 ML IV SCH (13:36)
[2023-01-22 13:50] VITALS: BP 156/82
[2023-01-22] MEDS: CARBAMIDE PEROXIDE 6.5% OTIC SOLN 15ML AS SCH ×2 (15:21→21:56)
[2023-01-22 20:26] VITALS: BP 163/99
[2023-01-23] MEDS: VANCOMYCIN HCL 500 MG in D5W MINI-BAG PLUS 100 ML IV SCH ×2 (00:13→06:01)
[2023-01-23 00:18] VITALS: BP 134/96
[2023-01-23] MEDS: METOPROLOL TART 25 MG TABLET PO SCH ×4 (00:33→17:56)
[2023-01-23] MEDS: MORPHINE 2 MG/ML 1ML VIAL IV PRN ×2 (02:10→18:01)
[2023-01-23] MEDS: PERCOCET 5MG/325MG TAB PO PRN ×4 (03:56→17:47)
[2023-01-23] MEDS: VANCOMYCIN HCL 750 MG, VIAL MATE ADAPTER 1 EACH in D5W 250 ML IV SCH ×2 (04:58→21:48)
[2023-01-23 04:59] VITALS: BP 170/98
[2023-01-23 05:51] LABS: BASO # 0.1 10^3/uL (0.0-0.2); BASO % 0.6 % (0.0-1.0); EOS # 0.3 10^3/uL (0.0-0.5); EOS % 2.9 % (0.0-3.0); HEMATOCRIT 42.9 % (42.0-52.0); HEMOGLOBIN 14.4 g/dl (13.5-17.5); LYMPH # 2.2 10^3/uL (1.5-5.0); LYMPH % 23.9 % (24.0-44.0); MEAN CORPUSCULAR HEMOGLOBIN 29.8 pg (27.0-33.0); MEAN CORPUSCULAR HGB CONC 33.6 g/dl (32.0-36.5); MEAN CORPUSCULAR VOLUME 88.8 fl (80.0-96.0); MONO # 1.2 10^3/uL (0.0-0.8); MONO % 12.7 % (2.0-8.0); NEUTROPHILS # 5.5 10^3/uL (1.5-8.5); NEUTROPHILS % 59.5 % (36.0-66.0); PLATELET COUNT, AUTOMATED 208 10^3/uL (150-450); RED BLOOD COUNT 4.83 10^6/uL (4.30-6.10); WHITE BLOOD COUNT 9.3 10^3/uL (4.0-10.0)
[2023-01-23 06:16] LABS: BLOOD UREA NITROGEN 8 MG/DL (9-23); CARBON DIOXIDE LEVEL 25 MMOL/L (20-31); CHLORIDE LEVEL 105 MMOL/L (98-107); CREATININE FOR GFR 0.88 MG/DL (0.70-1.30); GLOMERULAR FILTRATION RATE > 60.0 (>60); GLUCOSE, FASTING 125 MG/DL (60-100); POTASSIUM SERUM 3.4 MMOL/L (3.5-5.1); SODIUM LEVEL 138 MMOL/L (136-145)
[2023-01-23] MEDS: ENOXAPARIN 60MG/0.6ML SYRINGE (J1650 PER 10MG) SC SCH ×2 (08:10→20:24)
[2023-01-23] MEDS: CARBAMIDE PEROXIDE 6.5% OTIC SOLN 15ML AS SCH ×2 (08:10→20:24)
[2023-01-23 08:35] VITALS: BP 164/112
[2023-01-23] MEDS ORDERED: POTASSIUM CHLORIDE 10MEQ SR TABLET PO ONE (10:45)
[2023-01-23 11:18] VITALS: BP 166/103
[2023-01-23] MEDS: CHLORTHALIDONE 25 MG TAB PO SCH (11:26)
[2023-01-23] MEDS ORDERED: KETOROLAC 60MG 2ML VIAL IM ONE (20:00)
[2023-01-23] MEDS: VANCOMYCIN HCL 1,000 MG, VIAL MATE ADAPTER 1 EACH in D5W 250 ML IV SCH (20:23)
[2023-01-23 20:28] VITALS: BP 170/72
[2023-01-24] MEDS: METOPROLOL TART 25 MG TABLET PO SCH ×2 (00:19→06:23)
[2023-01-24 01:02] VITALS: BP 160/67
[2023-01-24 06:10] LABS: BASO # 0.1 10^3/uL (0.0-0.2); BASO % 0.7 % (0.0-1.0); EOS # 0.3 10^3/uL (0.0-0.5); EOS % 3.4 % (0.0-3.0); HEMATOCRIT 45.3 % (42.0-52.0); LYMPH # 2.4 10^3/uL (1.5-5.0); LYMPH % 25.9 % (24.0-44.0); MEAN CORPUSCULAR HEMOGLOBIN 29.5 pg (27.0-33.0); MEAN CORPUSCULAR HGB CONC 33.1 g/dl (32.0-36.5); MONO # 1.3 10^3/uL (0.0-0.8); MONO % 13.9 % (2.0-8.0); NEUTROPHILS # 5.1 10^3/uL (1.5-8.5); NEUTROPHILS % 55.6 % (36.0-66.0); PLATELET COUNT, AUTOMATED 239 10^3/uL (150-450); RED BLOOD COUNT 5.09 10^6/uL (4.30-6.10); WHITE BLOOD COUNT 9.2 10^3/uL (4.0-10.0)
[2023-01-24 06:12] VITALS: BP 146/86
[2023-01-24 06:47] LABS: ALBUMIN 3.7 G/DL (3.2-5.2); BLOOD UREA NITROGEN 8 MG/DL (9-23); CALCIUM LEVEL 8.8 MG/DL (8.5-10.1); CARBON DIOXIDE LEVEL 29 MMOL/L (20-31); CHLORIDE LEVEL 105 MMOL/L (98-107); GLOMERULAR FILTRATION RATE > 60.0 (>60); GLUCOSE, FASTING 87 MG/DL (60-100); MAGNESIUM LEVEL 2.1 MG/DL (1.8-2.4); PHOSPHORUS LEVEL 3.7 MG/DL (2.5-4.9); POTASSIUM SERUM 3.9 MMOL/L (3.5-5.1); SODIUM LEVEL 139 MMOL/L (136-145)
[2023-01-24] MEDS: ENOXAPARIN 60MG/0.6ML SYRINGE (J1650 PER 10MG) SC SCH ×2 (08:34→20:40)
[2023-01-24] MEDS: CHLORTHALIDONE 25 MG TAB PO SCH (08:34)
[2023-01-24] MEDS: VANCOMYCIN HCL 1,000 MG, VIAL MATE ADAPTER 1 EACH in D5W 250 ML IV SCH ×2 (08:34→20:40)
[2023-01-24] MEDS: PERCOCET 5MG/325MG TAB PO PRN ×2 (08:35→13:31)
[2023-01-24] MEDS: VANCOMYCIN HCL 750 MG, VIAL MATE ADAPTER 1 EACH in D5W 250 ML IV SCH ×2 (10:00→22:04)
[2023-01-24] MEDS: CARBAMIDE PEROXIDE 6.5% OTIC SOLN 15ML AS SCH ×2 (10:00→21:00)
[2023-01-24] MEDS: TELMISARTAN 20 MG TAB PO SCH (11:07)
[2023-01-24] MEDS: MORPHINE 2 MG/ML 1ML VIAL IV PRN ×2 (11:08→19:32)
[2023-01-24 14:00] VITALS: BP 171/118
[2023-01-24 16:00] VITALS: BP 169/98
[2023-01-24] MEDS: METOPROLOL SUCC (TopROL XL) 50MG **XL** TAB PO SCH (21:33)
[2023-01-24 22:00] VITALS: BP 186/108
[2023-01-24] MEDS ORDERED: KETOROLAC 60MG 2ML VIAL IM ONE (23:00)
[2023-01-25 06:00] VITALS: BP 149/93
[2023-01-25 07:19] LABS: BASO # 0.1 10^3/uL (0.0-0.2); BASO % 0.7 % (0.0-1.0); EOS # 0.3 10^3/uL (0.0-0.5); HEMOGLOBIN 15.5 g/dl (13.5-17.5); LYMPH # 1.9 10^3/uL (1.5-5.0); LYMPH % 20.7 % (24.0-44.0); MEAN CORPUSCULAR HEMOGLOBIN 29.5 pg (27.0-33.0); MEAN CORPUSCULAR HGB CONC 33.7 g/dl (32.0-36.5); MEAN CORPUSCULAR VOLUME 87.5 fl (80.0-96.0); MONO # 1.4 10^3/uL (0.0-0.8); MONO % 15.7 % (2.0-8.0); NEUTROPHILS # 5.5 10^3/uL (1.5-8.5); NEUTROPHILS % 59.4 % (36.0-66.0); PLATELET COUNT, AUTOMATED 246 10^3/uL (150-450); RED BLOOD COUNT 5.26 10^6/uL (4.30-6.10); WHITE BLOOD COUNT 9.2 10^3/uL (4.0-10.0)
[2023-01-25 07:42] LABS: BLOOD UREA NITROGEN 9 MG/DL (9-23); CALCIUM LEVEL 8.2 MG/DL (8.5-10.1); CARBON DIOXIDE LEVEL 27 MMOL/L (20-31); CHLORIDE LEVEL 100 MMOL/L (98-107); CREATININE FOR GFR 0.89 MG/DL (0.70-1.30); GLOMERULAR FILTRATION RATE > 60.0 (>60); GLUCOSE, FASTING 92 MG/DL (60-100); POTASSIUM SERUM 3.5 MMOL/L (3.5-5.1); SODIUM LEVEL 137 MMOL/L (136-145)
[2023-01-25 08:00] VITALS: BP 157/97
[2023-01-25] MEDS: VANCOMYCIN HCL 1,000 MG, VIAL MATE ADAPTER 1 EACH in D5W 250 ML IV SCH ×2 (08:02→21:12)
[2023-01-25] MEDS: CARBAMIDE PEROXIDE 6.5% OTIC SOLN 15ML AS SCH ×2 (09:00→21:00)
[2023-01-25] MEDS: PERCOCET 5MG/325MG TAB PO PRN ×2 (10:03→21:21)
[2023-01-25] MEDS: CHLORTHALIDONE 25 MG TAB PO SCH (10:03)
[2023-01-25] MEDS: TELMISARTAN 20 MG TAB PO SCH (10:04)
[2023-01-25] MEDS: ENOXAPARIN 60MG/0.6ML SYRINGE (J1650 PER 10MG) SC SCH ×2 (10:07→21:13)
[2023-01-25] MEDS ORDERED: LIDOCAINE 1% MDV 20ML VIAL As Ordered ONE (10:23)
[2023-01-25] MEDS: VANCOMYCIN HCL 750 MG, VIAL MATE ADAPTER 1 EACH in D5W 250 ML IV SCH ×2 (11:45→22:33)
[2023-01-25 12:00] VITALS: BP 153/98
[2023-01-25] MEDS: SODIUM CHLORIDE 0.9% INJ 10 ML SYR IV SCH (17:54)
[2023-01-25] MEDS: METOPROLOL SUCC (TopROL XL) 50MG **XL** TAB PO SCH (21:14)
[2023-01-25 22:00] VITALS: BP 162/86
[2023-01-26] MEDS: SODIUM CHLORIDE 0.9% INJ 10 ML SYR IV PRN ×2 (00:07→05:41)
[2023-01-26] MEDS: MORPHINE 2 MG/ML 1ML VIAL IV PRN (01:57)
[2023-01-26] MEDS: PERCOCET 5MG/325MG TAB PO PRN ×2 (02:32→20:37)
[2023-01-26] MEDS: SODIUM CHLORIDE 0.9% INJ 10 ML SYR IV SCH ×2 (05:41→12:09)
[2023-01-26 06:00] VITALS: BP 145/85
[2023-01-26 07:43] LABS: HEMATOCRIT 48.2 % (42.0-52.0); HEMOGLOBIN 16.4 g/dl (13.5-17.5); MEAN CORPUSCULAR HEMOGLOBIN 30.1 pg (27.0-33.0); MEAN CORPUSCULAR VOLUME 88.6 fl (80.0-96.0); PLATELET COUNT, AUTOMATED 262 10^3/uL (150-450); RED BLOOD COUNT 5.44 10^6/uL (4.30-6.10); WHITE BLOOD COUNT 9.3 10^3/uL (4.0-10.0)
[2023-01-26 08:01] LABS: BLOOD UREA NITROGEN 10 MG/DL (9-23); CALCIUM LEVEL 8.8 MG/DL (8.5-10.1); CARBON DIOXIDE LEVEL 30 MMOL/L (20-31); CHLORIDE LEVEL 101 MMOL/L (98-107); CREATININE FOR GFR 1.01 MG/DL (0.70-1.30); GLOMERULAR FILTRATION RATE > 60.0 (>60); GLUCOSE, FASTING 106 MG/DL (60-100); POTASSIUM SERUM 3.4 MMOL/L (3.5-5.1); SODIUM LEVEL 136 MMOL/L (136-145)
[2023-01-26 08:04] LABS: VANCOMYCIN LEVEL TROUGH 19.8 UG/ML (10.0-20.0)
[2023-01-26] MEDS ORDERED: IBUPROFEN 800 MG TAB PO PRN (08:45)
[2023-01-26] MEDS: ENOXAPARIN 60MG/0.6ML SYRINGE (J1650 PER 10MG) SC SCH ×2 (09:21→20:38)
[2023-01-26] MEDS: CHLORTHALIDONE 25 MG TAB PO SCH (09:21)
[2023-01-26] MEDS: TELMISARTAN 20 MG TAB PO SCH (09:21)
[2023-01-26] MEDS: VANCOMYCIN HCL 750 MG, VIAL MATE ADAPTER 1 EACH in D5W 250 ML IV SCH ×4 (09:22→21:47)
[2023-01-26 14:00] VITALS: BP 155/97
[2023-01-26] MEDS: METOPROLOL SUCC (TopROL XL) 50MG **XL** TAB PO SCH (20:41)
[2023-01-26 22:00] VITALS: BP 154/96
[2023-01-27] MEDS: SODIUM CHLORIDE 0.9% INJ 10 ML SYR IV SCH ×2 (05:29→14:27)
[2023-01-27] MEDS: PERCOCET 5MG/325MG TAB PO PRN (05:35)
[2023-01-27 06:00] VITALS: BP 151/98
[2023-01-27 07:43] LABS: BASO # 0.1 10^3/uL (0.0-0.2); BASO % 0.9 % (0.0-1.0); EOS # 0.3 10^3/uL (0.0-0.5); EOS % 2.8 % (0.0-3.0); HEMOGLOBIN 16.6 g/dl (13.5-17.5); LYMPH # 1.8 10^3/uL (1.5-5.0); LYMPH % 19.3 % (24.0-44.0); MEAN CORPUSCULAR HEMOGLOBIN 29.4 pg (27.0-33.0); MEAN CORPUSCULAR HGB CONC 33.2 g/dl (32.0-36.5); MEAN CORPUSCULAR VOLUME 88.7 fl (80.0-96.0); MONO # 1.3 10^3/uL (0.0-0.8); MONO % 14.3 % (2.0-8.0); NEUTROPHILS # 5.7 10^3/uL (1.5-8.5); NEUTROPHILS % 61.6 % (36.0-66.0); PLATELET COUNT, AUTOMATED 307 10^3/uL (150-450); RED BLOOD COUNT 5.64 10^6/uL (4.30-6.10); WHITE BLOOD COUNT 9.2 10^3/uL (4.0-10.0)
[2023-01-27 08:04] LABS: VANCOMYCIN LEVEL TROUGH 21.6 UG/ML (10.0-20.0)
[2023-01-27 08:09] LABS: BLOOD UREA NITROGEN 11 MG/DL (9-23); CARBON DIOXIDE LEVEL 32 MMOL/L (20-31); CHLORIDE LEVEL 98 MMOL/L (98-107); CREATININE FOR GFR 1.14 MG/DL (0.70-1.30); GLOMERULAR FILTRATION RATE > 60.0 (>60); GLUCOSE, FASTING 109 MG/DL (60-100); POTASSIUM SERUM 3.9 MMOL/L (3.5-5.1); SODIUM LEVEL 137 MMOL/L (136-145)
[2023-01-27] MEDS: TELMISARTAN 20 MG TAB PO SCH (09:05)
[2023-01-27] MEDS: CHLORTHALIDONE 25 MG TAB PO SCH (09:05)
[2023-01-27] MEDS: ENOXAPARIN 60MG/0.6ML SYRINGE (J1650 PER 10MG) SC SCH ×2 (09:06→21:56)
[2023-01-27] MEDS: VANCOMYCIN HCL 750 MG, VIAL MATE ADAPTER 1 EACH in D5W 250 ML IV SCH ×2 (11:29→23:09)
[2023-01-27] MEDS: VANCOMYCIN HCL 500 MG in D5W MINI-BAG PLUS 100 ML IV SCH (12:52)
[2023-01-27] MEDS: SODIUM CHLORIDE 0.9% INJ 10 ML SYR IV PRN (14:29)
[2023-01-27 14:39] VITALS: BP 128/82
[2023-01-27 21:56] VITALS: BP 135/94
[2023-01-27] MEDS: METOPROLOL SUCC (TopROL XL) 50MG **XL** TAB PO SCH (21:56)
[2023-01-27 22:00] VITALS: BP 133/87
[2023-01-28] MEDS: VANCOMYCIN HCL 500 MG in D5W MINI-BAG PLUS 100 ML IV SCH (00:26)
[2023-01-28] MEDS: SODIUM CHLORIDE 0.9% INJ 10 ML SYR IV SCH ×2 (05:43→12:40)
[2023-01-28 06:00] VITALS: BP 137/91
[2023-01-28] MEDS: TELMISARTAN 20 MG TAB PO SCH (09:13)
[2023-01-28] MEDS: CHLORTHALIDONE 25 MG TAB PO SCH (09:13)
[2023-01-28] MEDS: ENOXAPARIN 60MG/0.6ML SYRINGE (J1650 PER 10MG) SC SCH (09:14)
[2023-01-28] MEDS ORDERED: Benzocaine Gel TOP (09:57)
[2023-01-28] MEDS ORDERED: CHLO25TA PO (09:57)
[2023-01-28] MEDS ORDERED: LOVE0.4I2 SC (09:57)
[2023-01-28] MEDS ORDERED: PERCOCET PO (09:57)
[2023-01-28] MEDS ORDERED: MICA5TAB PO (09:57)
[2023-01-28] MEDS ORDERED: VANC1INJ37 IV (09:57)
[2023-01-28] MEDS ORDERED: HEPAINJ4 IV ×2 (09:57)
[2023-01-28] MEDS ORDERED: IBUP80TA PO (09:57)
[2023-01-28] MEDS ORDERED: METO1TAB7 PO (09:57)
[2023-01-28] MEDS ORDERED: VANC1.2510 IV (10:02)
[2023-01-28 10:37] LABS: VANCOMYCIN LEVEL TROUGH 19.4 UG/ML (10.0-20.0)
[2023-01-28 10:43] LABS: BLOOD UREA NITROGEN 13 MG/DL (9-23); CALCIUM LEVEL 9.5 MG/DL (8.5-10.1); CARBON DIOXIDE LEVEL 27 MMOL/L (20-31); CHLORIDE LEVEL 96 MMOL/L (98-107); CREATININE FOR GFR 1.21 MG/DL (0.70-1.30); GLOMERULAR FILTRATION RATE > 60.0 (>60); GLUCOSE, FASTING 119 MG/DL (60-100); POTASSIUM SERUM 3.9 MMOL/L (3.5-5.1); SODIUM LEVEL 135 MMOL/L (136-145)
[2023-01-28] MEDS ORDERED: VANCOMYCIN HCL 1,000 MG, VIAL MATE ADAPTER 1 EACH in D5W 250 ML IV SCH (11:00)
== END 2023-01-28 15:55 | disposition critical access hospital (66) | DRG 603 ==
LOC: M ED 09:30 → M ED INP 11:36 → EEVIPCON 11:36 → ENRESERV 12:39 → M PCU 13:09 → M MS5PR 01-24 01:03
PROVIDERS: ADMIT General Practice; ATTEND Family Medicine
PROC: B246ZZZ Ultrasonography of Right and Left Heart (ICD-10-PCS; principal; 2023-01-22)
PROC: 02HV33Z Insertion of Infusion Device into Superior Vena Cava, Percutaneous Approach (ICD-10-PCS; 2023-01-25)
DX: L03.115 Cellulitis of right lower limb (principal); Z68.44 Body mass index [BMI] 60.0-69.9, adult; R78.81 Bacteremia; E66.01 Morbid (severe) obesity due to excess calories; G47.33 Obstructive sleep apnea (adult) (pediatric); J30.9 Allergic rhinitis, unspecified; K02.9 Dental caries, unspecified; B95.61 Methicillin susceptible Staphylococcus aureus infection as the cause of diseases classified elsewhere; Z85.820 Personal history of malignant melanoma of skin; Z91.040 Latex allergy status; Z91.030 Bee allergy status; Z91.02 Food additives allergy status

== ENCOUNTER → 2023-02-20 | Outpatient (CLI) | payer MEDICARE, MEDICAID ==
[~2023-02-20] MED LIST changes: +ACET-897 PO; +Benzocaine Gel TOP; +CHLO25TA PO; +DOXY-444 PO; +HEPAINJ4 IV; +LOVE0.4I2 SC; +METO1TAB7 PO; +MICA5TAB PO; +PERCOCET PO; +VANC1.2510 IV; +VANC1INJ37 IV
[2023-02-20 13:30] LABS: BASO # 0.1 10^3/uL (0.0-0.2); BASO % 0.7 % (0.0-1.0); EOS # 0.3 10^3/uL (0.0-0.5); EOS % 3.2 % (0.0-3.0); HEMATOCRIT 47.4 % (42.0-52.0); HEMOGLOBIN 14.9 g/dl (13.5-17.5); LYMPH # 2.1 10^3/uL (1.5-5.0); LYMPH % 22.6 % (24.0-44.0); MEAN CORPUSCULAR HEMOGLOBIN 29.1 pg (27.0-33.0); MEAN CORPUSCULAR HGB CONC 31.4 g/dl (32.0-36.5); MEAN CORPUSCULAR VOLUME 92.6 fl (80.0-96.0); MONO # 0.8 10^3/uL (0.0-0.8); MONO % 8.4 % (2.0-8.0); NEUTROPHILS # 6.1 10^3/uL (1.5-8.5); NEUTROPHILS % 64.9 % (36.0-66.0); RED BLOOD COUNT 5.12 10^6/uL (4.30-6.10); WHITE BLOOD COUNT 9.4 10^3/uL (4.0-10.0)
[2023-02-20 13:43] LABS: ALBUMIN 3.8 G/DL (3.2-5.2); BILIRUBIN,TOTAL 0.3 MG/DL (0.3-1.2); CHOLESTEROL RISK RATIO 4.45 (<5); CREATININE FOR GFR 1.88 MG/DL (0.70-1.30); GLOMERULAR FILTRATION RATE 44.5 (>60); HDL CHOLESTEROL 36.4 MG/DL (>40); LDL CHOLESTEROL 103.2 MG/DL (<100); NON-HDL-C 125.6 MG/DL; POTASSIUM SERUM 4.6 MMOL/L (3.5-5.1); TOTAL PROTEIN 6.7 G/DL (5.7-8.2)
[2023-02-20 13:44] LABS: FREE T4 0.96 NG/DL (0.89-1.76); THYROID STIMULATING HORMONE 0.782 uIU/ML (0.55-4.78)
[2023-02-20 14:04] LABS: HEMOGLOBIN A1c 5.2 % (4.0-6.0)
[2023-02-20 14:56] LABS: PLATELET COUNT, AUTOMATED 222 10^3/uL (150-450)
== END ==
LOC: M PLALAB 09:15
PROVIDERS: ATTEND Student in an Organized Health Care Education/Training Program
DX: E66.01 Morbid (severe) obesity due to excess calories (principal)

== ENCOUNTER → 2023-04-17 | Outpatient (CLI) | payer MEDICARE, MEDICAID ==
[2023-04-17 14:35] LABS: APPEARANCE, URINE CLEAR (CLEAR); BACTERIA, URINE AUTO NEGATIVE (NEGATIVE); BILIRUBIN, URINE AUTO NEGATIVE (NEGATIVE); BLOOD, URINE BLOOD NEGATIVE (NEGATIVE); COLOR, URINE YELLOW (YELLOW); GLUCOSE, URINE (UA) AUTO NEGATIVE (NEGATIVE); KETONE, URINE AUTO TRACE mg/dL (NEGATIVE); LEUKOCYTE ESTERASE, URINE AUTO NEGATIVE (NEGATIVE); MUCUS, URINE SMALL (NEGATIVE); NITRITE, URINE AUTO NEGATIVE (NEGATIVE); PROTEIN, URINE AUTO NEGATIVE (NEGATIVE); RBC, URINE AUTO 0 /HPF (0-3); SPECIFIC GRAVITY URINE AUTO 1.026 (1.002-1.035); SQUAMOUS EPITHELIAL CELL UR AU 1 /HPF (0-6); UROBILINOGEN, URINE AUTO 0.2 mg/dL (0.0-2.0); WBC, URINE AUTO 1 /HPF (0-3)
[2023-04-17 14:52] LABS: ALBUMIN 4.1 G/DL (3.2-5.2); ALKALINE PHOSPHATASE 104 U/L (46-116); ALT/SGPT 28 U/L (7.0-40); AST/SGOT 9 U/L (<34); BILIRUBIN,TOTAL 0.5 MG/DL (0.3-1.2); BLOOD UREA NITROGEN 18 MG/DL (9-23); CALCIUM LEVEL 9.4 MG/DL (8.5-10.1); CARBON DIOXIDE LEVEL 24 MMOL/L (20-31); CHLORIDE LEVEL 107 MMOL/L (98-107); CREATININE FOR GFR 1.23 MG/DL (0.70-1.30); GLOMERULAR FILTRATION RATE > 60.0 (>60); GLUCOSE, FASTING 79 MG/DL (60-100); SODIUM LEVEL 143 MMOL/L (136-145); TOTAL PROTEIN 7.3 G/DL (5.7-8.2)
[2023-04-17 14:54] LABS: TOTAL 25(OH) VITAMIN D 11.8 NG/ML (20.0-100.0)
[2023-04-17 15:02] LABS: CREATININE, URINE 265.4 MG/DL; CREATININE,RANDOM URINE 265.4 MG/DL; MAU/CREAT RATIO 1.5 MCG/MG (0.0-30.0)
== END ==
LOC: M PLALAB 10:15
PROVIDERS: ATTEND Student in an Organized Health Care Education/Training Program
DX: E83.51 Hypocalcemia (principal); N17.9 Acute kidney failure, unspecified

== ENCOUNTER → 2024-04-01 | Outpatient (CLI) | payer MEDICARE, MEDICAID ==
[~2024-04-01] MED LIST changes: +DOXY-323 PO; +DOXY-440 PO; -DOXY-443 PO; -DOXY-444 PO; -FLUT50SP17; +FLUTISP
[2024-04-01 14:33] LABS: HEMATOCRIT 49.5 % (42.0-52.0); MEAN CORPUSCULAR HEMOGLOBIN 29.6 pg (27.0-33.0); MEAN CORPUSCULAR HGB CONC 32.3 g/dl (32.0-36.5); MEAN CORPUSCULAR VOLUME 91.7 fl (80.0-96.0); PLATELET COUNT, AUTOMATED 219 10^3/uL (150-450); WHITE BLOOD COUNT 9.3 10^3/uL (4.0-10.0)
[2024-04-01 14:51] LABS: THYROID STIMULATING HORMONE 2.245 uIU/ML (0.55-4.78)
[2024-04-01 14:52] LABS: TOTAL 25(OH) VITAMIN D 22.8 NG/ML (20.0-100.0)
[2024-04-01 14:53] LABS: ALBUMIN 3.8 G/DL (3.2-5.2); ALKALINE PHOSPHATASE 101 U/L (46-116); ALT/SGPT 40 U/L (7.0-40); AST/SGOT 13 U/L (<34); BILIRUBIN,TOTAL 0.5 MG/DL (0.3-1.2); BLOOD UREA NITROGEN 17 MG/DL (9-23); CALCIUM LEVEL 9.6 MG/DL (8.5-10.1); CARBON DIOXIDE LEVEL 25 MMOL/L (20-31); CHLORIDE LEVEL 111 MMOL/L (98-107); CHOLESTEROL LEVEL 168 MG/DL (<200); CHOLESTEROL RISK RATIO 4.54 (<5); CREATININE FOR GFR 1.09 MG/DL (0.70-1.30); GLOMERULAR FILTRATION RATE > 60.0 (>60); GLUCOSE, FASTING 86 MG/DL (60-100); LDL CHOLESTEROL 109.4 MG/DL (<100); POTASSIUM SERUM 4.2 MMOL/L (3.5-5.1); SODIUM LEVEL 140 MMOL/L (136-145); TOTAL PROTEIN 6.8 G/DL (5.7-8.2); TRIGLYCERIDES LEVEL 108 MG/DL (<150)
[2024-04-01 16:09] LABS: HEMOGLOBIN A1c 5.1 % (4.0-6.0)
== END ==
LOC: M PLALAB 10:32
PROVIDERS: ATTEND Family Medicine
DX: G47.33 Obstructive sleep apnea (adult) (pediatric) (principal); E78.00 Pure hypercholesterolemia, unspecified

== ENCOUNTER 2024-06-05 17:33 | Emergency (ER) | payer MEDICARE, MEDICAID ==
[~2024-06-05] VITALS: Ht 162.6 cm; Wt 151.8 kg
[2024-06-05] MEDS: ACETAMINOPHEN 500 MG TAB PO ONE (19:32)
[2024-06-05] MEDS: KETOROLAC 60MG 2ML VIAL IM ONE (19:32)
[2024-06-05] MEDS ORDERED: ACET325C5 PO (20:28)
[2024-06-05 20:39] VITALS: BP 143/91; TEMP 97.1; O2SAT 98
== END 2024-06-05 20:42 | disposition home or self-care (01) ==
LOC: M ED 17:33
DX: K03.81 Cracked tooth (principal); K02.9 Dental caries, unspecified; I10 Essential (primary) hypertension; F41.9 Anxiety disorder, unspecified; Z91.030 Bee allergy status; Z91.040 Latex allergy status; Z91.018 Allergy to other foods; Z79.1 Long term (current) use of non-steroidal anti-inflammatories (NSAID); Z79.899 Other long term (current) drug therapy
CPT/HCPCS: 96372; 99283; J1885

== ENCOUNTER 2025-06-21 12:13 | Outpatient (RCR) | payer MEDICARE, MEDICAID ==
[~2025-06-21 12:13] MED LIST changes: +ACET325C5 PO; -DOXY-323 PO; +DOXY-441 PO
== END 2025-06-22 ==
LOC: M PT 12:13
PROVIDERS: ATTEND Family Medicine
DX: S46.012D Strain of muscle(s) and tendon(s) of the rotator cuff of left shoulder, subsequent encounter (principal); W18.30XD Fall on same level, unspecified, subsequent encounter

== ENCOUNTER 2025-07-21 12:19 | Outpatient (RCR) | payer MEDICARE, MEDICAID | END 2025-07-23 | LOC: M PT 12:19 | PROVIDERS: ATTEND Family Medicine | DX: S46.012A Strain of muscle(s) and tendon(s) of the rotator cuff of left shoulder, initial encounter (principal); X58.XXXA Exposure to other specified factors, initial encounter; Y92.9 Unspecified place or not applicable; Y93.9 Activity, unspecified; Y99.9 Unspecified external cause status ==

== ENCOUNTER → 2025-07-22 | Outpatient (CLI) | payer MEDICARE, MEDICAID ==
[2025-07-22 14:14] LABS: PLATELET COUNT, AUTOMATED 248 10^3/uL (150-450)
[2025-07-22 14:18] LABS: ALT/SGPT 42 U/L (7.0-40); AST/SGOT 19 U/L (<34); CALCIUM LEVEL 8.7 MG/DL (8.5-10.1); CARBON DIOXIDE LEVEL 27 MMOL/L (20-31); CHLORIDE LEVEL 106 MMOL/L (98-107); CHOLESTEROL LEVEL 167 MG/DL (<200); CHOLESTEROL RISK RATIO 4.06 (<5); CREATININE FOR GFR 1.08 MG/DL (0.70-1.30); GLOMERULAR FILTRATION RATE > 90.0 (>60); LDL CHOLESTEROL 105.9 MG/DL (<100); NON-HDL-C 125.9 MG/DL; POTASSIUM SERUM 4.2 MMOL/L (3.5-5.1); SODIUM LEVEL 142 MMOL/L (136-145); TRIGLYCERIDES LEVEL 100 MG/DL (<150)
[2025-07-22 14:21] LABS: TOTAL 25(OH) VITAMIN D 12.1 NG/ML (20.0-100.0)
[2025-07-22 14:36] LABS: ESTIMATED AVERAGE GLUCOSE 100.0 MG/DL (60-110)
== END ==
LOC: M PLALAB 09:50
PROVIDERS: ATTEND Family Medicine
DX: G47.33 Obstructive sleep apnea (adult) (pediatric) (principal); J30.9 Allergic rhinitis, unspecified; I10 Essential (primary) hypertension; Z13.1 Encounter for screening for diabetes mellitus; Z13.220 Encounter for screening for lipoid disorders; E55.9 Vitamin D deficiency, unspecified

== ENCOUNTER 2025-08-18 09:59 | Outpatient (RCR) | payer MEDICARE, MEDICAID ==
[~2025-08-18 09:59] MED LIST changes: -BACTDSTA PO; +SULF-8 PO
== END 2025-08-22 | disposition still patient (30) ==
LOC: M PT 09:59
PROVIDERS: ATTEND Family Medicine
DX: S46.012A Strain of muscle(s) and tendon(s) of the rotator cuff of left shoulder, initial encounter (principal); X58.XXXA Exposure to other specified factors, initial encounter; Y92.9 Unspecified place or not applicable; Y93.9 Activity, unspecified; Y99.9 Unspecified external cause status